=== PATIENT | male | born 1955 | race Caucasian/White ===

== ENCOUNTER → 2016-06-26 | Outpatient (CLI) | payer MEDICARE ==
[~2016-06-26] MED LIST: 'PARAFON FORTE500 M1 PO; ADVAIR 500/501 E1 INH; ALBUTEROL0.09 MG/A1 INH; AMIODARONE HCL200 MG PO; AMIODARONE HYD200 MG PO; AMOXICILLIN500 MG PO; ARICEPT10 MG PO; ARICEPT5 MG PO; ASPIR-LOX325 MG PO; ASPIRIN ADULT L81 M1 PO; ASPIRIN325 MG PO; AZITHROMYCIN250 MG PO; BREO ELLIPTA 11 EACH IH; CARDOXIN0.25 MG PO; CLOTRIMAZOLE TR10 MG PO; COMBIVENT1 ARO IH; COREG3.125 MG PO; CRESTOR20 MG PO; CRESTOR40 MG PO; DAYPRO600 M1 PO; DELTASONE20 M1 PO; DIGOXIN0.125 MG PO; DOXYCYCLINE100 M3 PO; DUONEB 3 MG/3 ML3 M1 INH; ELAVIL10 MG PO; Ecotrin325 MG PO; FEOSOL325 MG PO; FOLIC ACID1 MG PO; GABAPENTIN800 MG PO; GEMFIBROZIL600 MG PO; HYDROCODONE BIT1 T11 PO; IBU800 MG PO; IBUPROFEN 30 M800 MG PO; K-DUR20 MEQ PO; K-TAB20 MEQ PO; KEFLEX500 MG PO; LANTUS100 U/ML SC; LASIX 40MG40 MG/4 ML IM; LASIX40 MG PO; LASIX80 MG PO; LEVAQUIN750 M1 PO; LEVEMIR10 ML SC; LEVOFLOXACIN500 MG PO; LISINOPRIL5 MG PO; LOPID600 MG PO; MEDROL DOSEPAK4 MG PO; METFORMIN1000 MG PO; METFORMIN500 MG PO; METHADONE10 MG PO; MOTRIN800 MG PO; Metformin Hydr500 MG PO; NATURE'S BLEND F1 MG PO; NEURONTIN300 MG PO; NEXIUM40 MG PO; NICOTINE21 MG/24 H TD; NORCO 7.5-3251 EACH PO; NOVOLOG10 ML SC; NOVOLOG100 U/ML SC; OMEPRAZOLE20 MG PO; PLAVIX75 MG PO; PREDNISONE10 MG PO; PRILOSEC20 M1 PO; PRILOSEC20 MG PO; PROAIR HFA0.09 MG/AC IH; PROAIR HFA8.5 GM INH; PROAIR RESPICL90 MCG INH; REQUIP0.25 M1 PO; SPIRIVA 5 CAPS18 MCG INH; SPIRIVA18 MCG IH; SPIRIVA18 MCG PO; TESSALON PERLE100 MG PO; TUSSI-ORGANID3840 ML PO; VENTOLIN 02.5 MG/3 M INH; VENTOLIN0.09 MG/AC INH; VICO75300 PO; VICODIN 500 MG-1 TAB PO; VICODIN ES 7501 TA1 PO; VICODIN HP 6601 TAB PO; ZANTAC 150150 MG PO; ZESTRIL,PRINIVIL5 MG PO; ZITHROMAX TRI-500 M1 PO; ZITHROMAX Z PA250 MG PO; ZITHROMAX Z-PA250 MG PO; [UNRECOGNIZED DRUG - OTHER] IJ; [UNRECOGNIZED DRUG - OTHER] PO
== END | disposition home or self-care (01) ==
LOC: RAD 10:19
DX: M47.892 Other spondylosis, cervical region (principal); M25.511 Pain in right shoulder; M25.512 Pain in left shoulder; M54.2 Cervicalgia; R20.0 Anesthesia of skin; Z91.81 History of falling

== ENCOUNTER 2016-07-04 19:20 | Inpatient (IN) | payer MEDICARE ==
[~2016-07-04] VITALS: Ht 188 cm; Wt 132.4 kg
[~2016-07-04 19:20] MED LIST changes: -LEVAQUIN750 M1 PO
[2016-07-04 19:29] VITALS: BP 116/74
[2016-07-04] MEDS ORDERED: LEVEMIR10 ML SC (19:39)
[2016-07-04] MEDS ORDERED: IBU800 MG PO (19:40)
[2016-07-04 19:51] LABS: BASO # 0.1 10*3/uL (0.0-0.1); BASO % 0.8 % (0.0-1.0); EOS # 0.1 10*3/uL (0.0-0.4); EOS % 1.4 % (1.0-4.0); HEMATOCRIT 41.9 % (42.0-52.0); HEMOGLOBIN 14.7 g/dl (14.0-18.0); LYMPH # 1.5 10*3/uL (1.3-4.4); LYMPH % 14.3 % (27.0-41.0); MEAN CELL VOLUME 92.9 fl (80.0-94.0); MEAN CORPUSCULAR HGB 32.6 pg (27.0-31.0); MEAN CORPUSCULAR HGB CONC 35.1 g/dl (33.0-37.0); MEAN PLATELET VOLUME 10.7 fl (9.6-12.3); MONO # 0.8 10*3/uL (0.1-1.0); MONO % 7.5 % (3.0-9.0); NEUT # 7.8 10*3/uL (2.3-7.9); NEUT % 75.8 % (47.0-73.0); PLATELET COUNT AUTOMATED 176 10*3/uL (130-400); RED BLOOD COUNT 4.51 10*6/uL (4.50-5.90); RED CELL DISTRI WIDTH 13.2 % (0-14.5); WHITE BLOOD COUNT 10.2 10*3/uL (4.8-10.8)
[2016-07-04 20:02] VITALS: BP 102/64
[2016-07-04 20:10] LABS: BILIRUBIN, TOTAL 0.6 mg/dl (0.2-1.0); C-REACTIVE PROTEIN 2.71 MG/DL (0-0.3); POTASSIUM 2.9 mmol/L (3.5-5.1); TOTAL PROTEIN 7.7 gm/dL (6.4-8.2); TROPONIN I 0.017 ng/ml (<0.5)
[2016-07-04 20:27] LABS: ABG BASE EXCESS 0.9 mmol/L (-2.0-2.0); ABG CO2 CONTENT 24.5 mmol/L (23-27); ABG HCO3 23.5 mmol/l (22-26); ABG TEMPERATURE 97.4 F (98.0-99.0); ARTERIAL BLOOD GAS PH 7.478 (7.35-7.45); ARTERIAL BLOOD GAS PO2 58.4 mmHg (80-90)
[2016-07-04 20:44] LABS: BILIRUBIN NEGATIVE (NEGATIVE); BLOOD 2+ (NEGATIVE); CLARITY SL CLOUDY (CLEAR); COLOR YELLOW (YELLOW); GLUCOSE NEGATIVE (NEGATIVE); KETONE NEGATIVE (NEGATIVE); LEUKO ESTERASE NEGATIVE (NEGATIVE); NITRITE NEGATIVE (NEGATIVE); PROTEIN 1+ (NEGATIVE); UROBILINOGEN 0.2 E.U./dl (0.2-1.0)
[2016-07-04 20:45] VITALS: BP 94/54
[2016-07-04 20:56] LABS: BACTERIA 1+; RBC 16-20 rbc/hpf (0-2)
[2016-07-04 20:57] LABS: URINE REFLEX COMMENT YES (NO)
[2016-07-04 21:35] VITALS: BP 102/64
[2016-07-04 22:00] VITALS: BP 107/60
[2016-07-05] VITALS: BP 115/83
[2016-07-05 01:01] LABS: DIGOXIN 0.85 ng/ml (0.8-2.0); TROPONIN I 0.02 ng/ml (<0.5)
[2016-07-05 05:49] LABS: TROPONIN I 0.016 ng/ml (<0.5)
[2016-07-05 05:51] LABS: CKMB 6.3 ng/ml (0.5-3.6)
[2016-07-05 06:04] LABS: BASO # 0.1 10*3/uL (0.0-0.1); BASO % 0.8 % (0.0-1.0); EOS # 0.2 10*3/uL (0.0-0.4); HEMATOCRIT 41.4 % (42.0-52.0); HEMOGLOBIN 14.2 g/dl (14.0-18.0); LYMPH # 1.3 10*3/uL (1.3-4.4); LYMPH % 16.6 % (27.0-41.0); MEAN CELL VOLUME 94.5 fl (80.0-94.0); MEAN CORPUSCULAR HGB 32.4 pg (27.0-31.0); MEAN CORPUSCULAR HGB CONC 34.3 g/dl (33.0-37.0); MEAN PLATELET VOLUME 11.3 fl (9.6-12.3); MONO # 0.6 10*3/uL (0.1-1.0); MONO % 8.2 % (3.0-9.0); NEUT # 5.6 10*3/uL (2.3-7.9); PLATELET COUNT AUTOMATED 165 10*3/uL (130-400); RED BLOOD COUNT 4.38 10*6/uL (4.50-5.90); RED CELL DISTRI WIDTH 13.2 % (0-14.5); WHITE BLOOD COUNT 7.8 10*3/uL (4.8-10.8)
[2016-07-05 06:13] LABS: HEMOGLOBIN A1c 8.7 % (4.8-5.6)
[2016-07-05 06:16] LABS: ALBUMIN 3.6 gm/dl (3.1-4.5); BILIRUBIN, TOTAL 0.4 mg/dl (0.2-1.0); FREE T4 1.12 ng/dl (0.76-1.46); MAGNESIUM 2.1 mg/dL (1.5-2.1); PHOSPHOROUS 3.2 mg/dL (2.5-4.9); POTASSIUM 3.5 mmol/L (3.5-5.1); THYROID STIM HORMONE (HS) 1.19 uIU/ml (0.358-4.75); TOTAL PROTEIN 6.9 gm/dL (6.4-8.2)
[2016-07-05 06:19] LABS: INTERNATIONAL NORM RATIO 0.9 (2.0-3.5)
[2016-07-05 07:14] LABS: FOLIC ACID 12.63 ng/mL (>5.38); VITAMIN D, 25-HYDROXY 7.8 ng/mL (30-100)
[2016-07-05 08:00] VITALS: BP 132/90
[2016-07-05 12:00] VITALS: BP 136/79
[2016-07-05 12:33] LABS: TROPONIN I 0.017 ng/ml (<0.5)
[2016-07-05 12:38] LABS: CKMB 5.3 ng/ml (0.5-3.6)
[2016-07-05 16:00] VITALS: BP 132/63
[2016-07-05 20:00] VITALS: BP 143/71
[2016-07-06] VITALS: BP 135/60
[2016-07-06 06:23] LABS: BASO % 0.2 % (0.0-1.0); EOS % 0.1 % (1.0-4.0); HEMATOCRIT 37.4 % (42.0-52.0); HEMOGLOBIN 12.4 g/dl (14.0-18.0); LYMPH % 11.2 % (27.0-41.0); MEAN CELL VOLUME 94.9 fl (80.0-94.0); MEAN CORPUSCULAR HGB 31.5 pg (27.0-31.0); MEAN CORPUSCULAR HGB CONC 33.2 g/dl (33.0-37.0); MEAN PLATELET VOLUME 11.2 fl (9.6-12.3); MONO # 0.7 10*3/uL (0.1-1.0); MONO % 7.9 % (3.0-9.0); NEUT # 6.8 10*3/uL (2.3-7.9); NEUT % 80.2 % (47.0-73.0); PLATELET COUNT AUTOMATED 160 10*3/uL (130-400); RED BLOOD COUNT 3.94 10*6/uL (4.50-5.90); RED CELL DISTRI WIDTH 12.8 % (0-14.5); WHITE BLOOD COUNT 8.5 10*3/uL (4.8-10.8)
[2016-07-06 06:32] LABS: BUN 18 mg/dl (7-24); CARBON DIOXIDE 26 mmol/L (21-32); CHLORIDE 108 mmol/L (98-107); CKMB 4.8 ng/ml (0.5-3.6); EST GLOM FILT AFRICAN AMERICAN > 60 ml/min; GLUCOSE 261 mg/dL (65-99); POTASSIUM 3.8 mmol/L (3.5-5.1); SODIUM 144 mmol/L (136-145); TROPONIN I 0.019 ng/ml (<0.5)
[2016-07-06 08:00] VITALS: BP 124/58
[2016-07-06 12:00] VITALS: BP 140/67
[2016-07-06 16:00] VITALS: BP 125/67
[2016-07-06 20:00] VITALS: BP 141/81
[2016-07-07] VITALS: BP 142/71
[2016-07-07 08:00] VITALS: BP 120/68
[2016-07-07 12:00] VITALS: BP 142/72
[2016-07-07] MEDS ORDERED: PREDNISONE10 MG PO (15:57)
[2016-07-07] MEDS ORDERED: LEVAQUIN750 M1 PO (15:57)
[2016-07-07 16:00] VITALS: BP 123/59
== END 2016-07-07 16:47 | disposition home or self-care (01) | DRG 682 ==
LOC: ED 19:20 → EDHOLD 20:57 → 5E 20:57
PROVIDERS: Emergency Medicine Emergency Medical Services; Internal Medicine
DX: N17.0 Acute kidney failure with tubular necrosis (principal); J96.01 Acute respiratory failure with hypoxia; J44.1 Chronic obstructive pulmonary disease with (acute) exacerbation; I50.22 Chronic systolic (congestive) heart failure; D64.9 Anemia, unspecified; I48.0 Paroxysmal atrial fibrillation; F17.200 Nicotine dependence, unspecified, uncomplicated; I25.119 Atherosclerotic heart disease of native coronary artery with unspecified angina pectoris; E11.65 Type 2 diabetes mellitus with hyperglycemia; M15.9 Polyosteoarthritis, unspecified; K21.9 Gastro-esophageal reflux disease without esophagitis; Z71.6 Tobacco abuse counseling; Z79.82 Long term (current) use of aspirin; Z79.899 Other long term (current) drug therapy; Z79.4 Long term (current) use of insulin; Z88.5 Allergy status to narcotic agent; Z79.01 Long term (current) use of anticoagulants; Z88.8 Allergy status to other drugs, medicaments and biological substances; Z90.49 Acquired absence of other specified parts of digestive tract; Z95.1 Presence of aortocoronary bypass graft; Z98.890 Other specified postprocedural states; Z82.49 Family history of ischemic heart disease and other diseases of the circulatory system; Z83.3 Family history of diabetes mellitus

== ENCOUNTER → 2016-11-02 | Outpatient (CLI) | payer MEDICARE ==
[~2016-11-02] MED LIST changes: +LEVAQUIN750 M1 PO
== END ==
LOC: RAD 10:54
DX: M25.571 Pain in right ankle and joints of right foot (principal)

== ENCOUNTER 2017-01-12 11:56 | Inpatient (IN) | payer MEDICARE ==
[~2017-01-12] VITALS: Ht 187.9 cm; Wt 129.4 kg
--- NOTE | ~2017-01-12 | CON ---
[place], [place] REPORT OF CONSULTATION NAME: ARTI HAAS UNIT #: [id number] ROOM: 509 DOCTOR: RAYRAY LEWISROD BIRTHDATE: [birth year] DOS: 01/14/2017 The patient is very well known to me. REASON FOR CONSULTATION: Shortness of breath. HISTORY OF PRESENT ILLNESS: The patient with ischemic cardiomyopathy, previous bypass surgery. The patient came in with significant shortness of breath and COPD. The patient has chronic nicotine dependence and noncompliance. The patient continues to smoke. He had a brief episode of atrial fibrillation, but went back into sinus rhythm. I did an echocardiogram that showed an ejection fraction of 45-50%, which is significantly improved. Right now, he is in sinus rhythm. He is already on long-term amiodarone therapy and is already on aspirin and Plavix. Right now, he denies any chest discomfort, his main problem or shortness of breath. He does have severe COPD, being followed by Dr. Tejeda also. PAST MEDICAL HISTORY: Significant for emphysema, congestive heart failure diastolic, coronary artery disease, history of atrial fibrillation, diabetes mellitus, chronic moderate obesity, hypertension, nicotine dependence. PAST SURGICAL HISTORY: Bypass surgery, rotator cuff surgery, tracheostomy and decannulation in 2010. SOCIAL HISTORY: The patient continues to smoke about 1-2 packs per day. Occasional alcohol. FAMILY HISTORY: Positive for coronary artery disease and hypertension. DRUG ALLERGIES: BENTYL, METHADONE, FENTANYL AND MORPHINE. HOME MEDICATIONS: Include Plavix, digoxin, Coreg, aspirin, Lasix, Neurontin, amiodarone, metformin, lisinopril, Spiriva, Requip and Levemir. REVIEW OF SYSTEMS: CONSTITUTIONAL: Does complain of fatigue and tiredness. Denies any symptoms of fever or chills. HEENT: No visual disturbances or hearing problems. CARDIOVASCULAR: No chest discomfort. RESPIRATORY: Does have shortness of breath. GASTROINTESTINAL: No nausea, no vomiting. GENITOURINARY: No dysuria. NEUROLOGICAL: Stable. PHYSICAL EXAMINATION: GENERAL: The patient is alert, oriented x 3. HEENT: Unremarkable. LUNGS: Diminished air entry bilaterally. HEART: Sounds are regular. The patient is back into sinus rhythm. [place], [place] REPORT OF CONSULTATION NAME: ARTI HAAS UNIT #: [id number] ROOM: [facility] DOCTOR: RAYRAY LEWIS,ROD BIRTHDATE: [birth year] ABDOMEN: Soft, nontender. NEUROLOGICAL: Appears to be stable. LABORATORY DATA: Shows white count of 15.5, hemoglobin 13.9 and hematocrit 40.3, platelet count is normal. Chest x-ray shows no acute abnormalities. CT of the chest showed paraseptal and centrilobular emphysema and no evidence of significant congestive heart failure. IMPRESSION: The patient with severe chronic obstructive pulmonary disease, admitted with significant shortness of breath, nicotine dependence, centrilobular emphysema, ischemic cardiomyopathy, chronic moderate obesity, noncompliance, a brief episode of atrial fibrillation. RECOMMENDATIONS: The patient is hesitant to take Xarelto and hence I will continue the aspirin and Plavix. Continue the amiodarone. Continue the Lasix, but increase it to 80 in the morning and 40 at night. Continue the digoxin, Coreg. Continue the carvedilol as ordered and I will follow up as an outpatient. Thank you for this interesting consultation. ROD SEO MD CM:CONSTR:REPORT OF CONSULTATION 0260 01/14/17 [id number] interface
--- NOTE | ~2017-01-12 | CON ---
[place], [place] REPORT OF CONSULTATION NAME: ARTI HAAS [facility] #: [id number] UNIT #: [id number] ROOM: 509 DOCTOR: YOBANI COYNE MD BIRTHDATE: [birth year] DOS: 01/13/2017 REASON FOR CONSULTATION: Assessment of ongoing acute respiratory complaints with abnormal finding on CT scan of the chest. HISTORY OF PRESENT ILLNESS: This is a 61-year-old male, who has been known to me with past history of COPD and chronic nicotine dependence, presented to the Emergency Room. The patient has developed symptoms of increased shortness of breath associated coughing with some sputum expectoration in 24 hours. He came into the Emergency Room, where he had been assessed and being admitted to the hospital for further medical management. The patient denies any symptoms of pain in the chest. Denies symptoms of hemoptysis. The patient has been noted with significant severe shortness breath yesterday. He has a CT of the chest done as well that did not show evidence of pulmonary embolism. The physician also discussed with the patient significantly as well. He denies any symptoms of hemoptysis. REVIEW OF SYSTEMS: CONSTITUTIONAL: He does complain of fatigue and tiredness. Denies symptoms of fever or chills. EYES: Denies any burning, redness, or tenderness. EARS, NOSE, THROAT SYMPTOMS: No sore throat, hoarseness, otalgia, postnasal drainage or epistaxis. CARDIOVASCULAR: Denies anginal pain, edema or pain of the lower extremities. GASTROINTESTINAL: Denies dysphagia, nausea, vomiting, diarrhea, abdominal pain, hematemesis, or melena. GENITOURINARY: Denies dysuria, suprapubic pain, or hematuria. MUSCULOSKELETAL: Denies acute joint pain, redness, or tenderness. SKIN: Denies lesions or rashes. CENTRAL NERVOUS SYSTEM: No dizziness, headache, diplopia, syncopal episodes or seizures. Remaining systems were reviewed with the patient, they were noted all negative. PAST MEDICAL HISTORY: 1. Known longstanding centrilobular emphysema, which is paraseptal and centrilobular in variety. 2. Acute congestive heart failure with diastolic dysfunction. 3. Coronary artery disease. 4. Atrial fibrillation. 5. Type 2 diabetes mellitus. 6. Chronic moderate obesity. 7. Hypercholesterolemia. 8. Degenerative arthritis. 9. Anxiety, depression. 10. Nicotine dependence. PAST SURGICAL HISTORY: 1. Coronary artery bypass graft in 2005. 2. Right rotator cuff surgery. 3. Past tracheostomy and decannulation respiratory failure in 2010. [place], [place] REPORT OF CONSULTATION NAME: ARTI HAAS UNIT #: [id number] ROOM: [facility] DOCTOR: YOBANI COYNE MD BIRTHDATE: [birth year] SOCIAL HISTORY: The patient is , has 2 children. He has been noted with tobacco usage since of 19 years old, still smokes 1 pack of cigarettes per day actively until the hospitalization. Denies history of alcohol use, illicit drug use. 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 FAMILY HISTORY: The patient's father ; age unknown. Mother at age 4848 years old from unknown medical complications. HOME MEDICATIONS: Listed for this patient on admission in medication reconciliation are use of Breo Ellipta, ProAir HFA inhaler, DuoNeb, amiodarone, aspirin, Coreg, Plavix, digoxin, Lasix, Neurontin, Lopid, Vicodin-ES, ibuprofen, lisinopril, metformin, Prilosec, potassium chloride, ranitidine, Requip, Crestor, Spiriva, sliding scale insulin coverage and Levemir insulin. DRUG ALLERGIES: 1. BENTYL. 2. METHADONE. 3. FENTANYL. 4. MORPHINE SULPHATE. PHYSICAL EXAMINATION: GENERAL: This is a 61-year-old male, who has been currently noted to be awake and alert without any distress. Height of 6 feet 2 inches, weight of 284 pounds, BMI 36.5. Chronic obesity. VITAL SIGNS: Normal temperature, respiratory rate 24-30, heart rate of 70-124, blood pressure 122/72-114/55. Pulse oxygen saturation of the patient noted on room air at 88% on 4 liters nasal cannula 96% saturation. HEENT: NECK: Supple. Head was atraumatic. CARDIOVASCULAR: S1, S2 audible. LUNGS: Noted with diffuse reduction in breath sounds with expiratory wheezing. No crackles. ABDOMEN: Soft, nontender, bowel sounds present. EXTREMITIES: Show no edema, clubbing, cyanosis. Chronic moderate obesity. BRAZE OPERATOR: Cranial nerves 2-12 intact. No focal deficit. SKIN: No lesions or rashes. MUSCULOSKELETAL: No acute deformities. LABORATORY DATA: CBC on 01/12/2017, WBC count of 15.5, hemoglobin 13.9, hematocrit 40.3, platelet count was 153,000, normal. PT/PTT of patient on 01/12/2017 on admission normal. CMP of the patient 01/12/2017 admission glucose 187, BUN and creatinine normal, potassium 3.4, mildly decreased. Liver function tests were normal. Cardiac enzymes yesterday and this morning were noted as normal. The chest x-ray of patient on 01/12/2017, was essentially noted with no acute abnormalities. CT scan of the chest shows evidence of paraseptal and centrilobular emphysema combination in the lungs noted bilaterally with evidence of tree-in-bud scattered pulmonary nodules in the lungs bilaterally as well. There was no significant lymphadenopathy, mediastinal. CBC this morning, WBC count 11.6, hemoglobin 13.1, hematocrit 38.5, platelet count was normal. PT/PTT [place], [place] REPORT OF CONSULTATION NAME: ARTI HAAS UNIT #: [id number] ROOM: [facility] DOCTOR[facility] B[facility] [birth year] repeated this morning normal. BMP this morning, glucose 129, BUN and creatinine were normal. Arterial blood gas that I ordered for this patient yesterday on 2 liters, pH of 7.34, pCO2 of 43, pO2 71.4. IMPRESSION: 1. The patient is currently admitted to the hospital, history of noncompliance with continued nicotine dependence, developed acute hypoxic respiratory failure with acute exacerbation of chronic obstructive pulmonary disease and acute bronchitis. 2. Bilateral pulmonary nodular opacity was noted with tree-in-bud appearance consistent with acute pulmonary infection. The patient technically could be considered as acute pneumonia. The etiology usually is considered as a gram-positive organisms and atypical etiology. 3. History of chronic moderate obesity. 4. History of multiple medical problems listed in my history as well. PLAN OF MANAGEMENT: The patient would be continued on bronchodilators as ordered every 4 hours. His home medication has been reviewed and resumed. Solu-Medrol currently noted suffice with the dose 60 mg q.8 hours with the reduction to be done with the progression of the illness. Continue antibiotic to cover the gram-positive, gram-negative organisms. The patient was ordered BiPAP for the patient's medical and respiratory distress, he refused to do that, and stated that he could not breathe with that. Ordered the sputum for Gram stain and culture. Monitor patient as necessary. Usual care. Ordered supportive plan and management and therapy. Nicotine replacement patches. Oxygen supplementation, continue to maintain a saturation of 92% or greater. Tobacco cessation has been addressed with the patient as well. Thanks for allowing me to participate in the care of this patient. YOBANI GARCIA MD CM:CONSTR:REPORT OF CONSULTATION 1059 01/13/17 1315 interface
--- NOTE | ~2017-01-12 | PR ---
[place], [place] PROGRESS NOTE NAME: ARTI HAAS UNIT #: [id number] ROOM: 509 DOCTOR: YOBANI COYNE MD BIRTHDATE: [birth year] DOS: 01/14/2017 SUBJECTIVE: He has been noted comfortable at this time without any distress. His shortness of breath has been noted decreased from yesterday. The patient denies symptoms of chest pain. Coughing has been noted [id number]. The patient with sputum expectoration at this time. Denies symptoms of chest pain or abdominal pain. OBJECTIVE: VITAL SIGNS: Normal temperature, respiratory rate 20, pulse 69, blood pressure is 127/67. Pulse ox saturation on 2 liters nasal cannula 96% saturation recorded. HEENT: Examination shows no acute change. NECK: Supple. CARDIOVASCULAR: S1, S2 audible. LUNGS: Moderate decreased breath sounds, expiratory wheezing, no crackles. ABDOMEN: Soft, nontender. LABORATORY DATA: The blood culture for the patient from the to showed no bacterial growth, final culture results were pending. Sputum Gram stain for this patient on 01/13/2017, many white blood cells, few epithelial cells, few gram-positive cocci in pairs and clusters with normal rob. ____ negative culture. Final culture results were pending. IMPRESSION: 1. The patient with acute exacerbation of chronic obstructive pulmonary disease with acute tracheobronchitis. 2. History of chronic nicotine dependence as well. 3. Acute hypoxic respiratory failure as well secondary to acute exacerbation of chronic obstructive pulmonary disease. 4. Bilateral pulmonary opacities. The patient with diagnosis of acute pneumonia. PLAN OF TREATMENT: Reduce the dose of the Solu-Medrol for this patient at this time to Solu-Medrol 40 mg b.i.d. Continue current antibiotics, bronchodilators and nicotine replacement patches, all other previous medications. Monitor culture results of the sputum. [place], [place] PROGRESS NOTE NAME: ARTI HAAS UNIT #: [id number] ROOM: 509 DOCTOR: YOABNI COYNE MD BIRTHDATE: [birth year] YOBANI AZIZ, MD CM:PNTRANS [id number] YOBANI LEE MD 01/14/17 1214 interface
[2017-01-12 12:03] VITALS: BP 102/55
[2017-01-12 12:14] VITALS: BP 104/60
[2017-01-12 12:15] LABS: BASO # 0.1 10*3/uL (0.0-0.1); BASO % 0.4 % (0.0-1.0); EOS % 0.1 % (1.0-4.0); HEMATOCRIT 40.3 % (42.0-52.0); HEMOGLOBIN 13.9 g/dl (14.0-18.0); IG # 0.1 10*3/uL (0.0-0.1); LYMPH # 1.1 10*3/uL (1.3-4.4); LYMPH % 6.9 % (27.0-41.0); MEAN CELL VOLUME 91.6 fl (80.0-94.0); MEAN CORPUSCULAR HGB 31.6 pg (27.0-31.0); MEAN CORPUSCULAR HGB CONC 34.5 g/dl (33.0-37.0); MEAN PLATELET VOLUME 11.1 fl (9.6-12.3); MONO % 6.5 % (3.0-9.0); NEUT # 13.3 10*3/uL (2.3-7.9); NEUT % 85.7 % (47.0-73.0); PLATELET COUNT AUTOMATED 153 10*3/uL (130-400); WHITE BLOOD COUNT 15.5 10*3/uL (4.8-10.8)
[2017-01-12 12:23] LABS: PROTHROMBIN TIME 10.6 SECONDS (9.0-12.4)
[2017-01-12 12:30] LABS: ALBUMIN 3.8 gm/dl (3.1-4.5); ALKALINE PHOSPHATASE 83 U/L (45-117); BILIRUBIN, TOTAL 0.8 mg/dl (0.2-1.0); BUN 15 mg/dl (7-24); C-REACTIVE PROTEIN 8.55 MG/DL (0-0.3); CARBON DIOXIDE 24 mmol/L (21-32); CHLORIDE 102 mmol/L (98-107); CKMB 1.5 ng/ml (0.5-3.6); CPK 443 U/L (39-308); EST GLOM FILT AFRICAN AMERICAN > 60 ml/min; GLUCOSE 187 mg/dL (65-99); MAGNESIUM 1.9 mg/dL (1.5-2.1); POTASSIUM 3.4 mmol/L (3.5-5.1); SGOT/AST 16 IU/L (3-35); SGPT/ALT 23 U/L (12-78); SODIUM 136 mmol/L (136-145); TOTAL PROTEIN 7.4 gm/dL (6.4-8.2)
[2017-01-12 12:31] LABS: TROPONIN I < 0.015 ng/ml (<0.045)
[2017-01-12 12:41] LABS: DIGOXIN 0.59 ng/ml (0.8-2.0)
[2017-01-12 12:54] VITALS: BP 102/56
[2017-01-12 14:05] VITALS: BP 114/71
[2017-01-12 16:00] VITALS: BP 114/55
[2017-01-12 19:28] LABS: ABG BASE EXCESS -2.2 mmol/L (-2.0-2.0); ABG CO2 CONTENT 24.5 mmol/L (23-27); ABG HCO3 23.1 mmol/l (22-26); ABG TEMPERATURE 98.3 F (98.0-99.0); ARTERIAL BLOOD GAS PH 7.345 (7.35-7.45); ARTERIAL BLOOD GAS PO2 71.4 mmHg (80-90)
[2017-01-13] VITALS: BP 146/68
[2017-01-13 07:04] LABS: HEMATOCRIT 38.5 % (42.0-52.0); HEMOGLOBIN 13.1 g/dl (14.0-18.0); MEAN CELL VOLUME 93.9 fl (80.0-94.0); MEAN PLATELET VOLUME 11.7 fl (9.6-12.3); PLATELET COUNT AUTOMATED 152 10*3/uL (130-400); RED CELL DISTRI WIDTH 12.8 % (0-14.5); WHITE BLOOD COUNT 11.6 10*3/uL (4.8-10.8)
[2017-01-13 07:25] LABS: PROTHROMBIN TIME 10.7 SECONDS (9.0-12.4)
[2017-01-13 07:26] LABS: BUN 21 mg/dl (7-24); CARBON DIOXIDE 26 mmol/L (21-32); CHLORIDE 108 mmol/L (98-107); CHOLESTEROL 140 mg/dL (<200); EST GLOM FILT AFRICAN AMERICAN > 60 ml/min; GLUCOSE 229 mg/dL (65-99); SODIUM 140 mmol/L (136-145); TRIGLYCERIDES 130 mg/dl (<150); VLDL CHOLESTEROL 26 mg/dL (6-40)
[2017-01-13 07:27] LABS: LYMPHOCYTE # 0.5 10*3/uL (1.3-4.4); MONOCYTE # 0.1 10*3/uL (0.1-1.0); NEUTROPHILS 95 % (47-73); PLATELET SUFFICIENCY NORMAL (NORMAL); TOTAL CELLS COUNTED 100 #CELLS
[2017-01-13 07:35] LABS: CKMB 3.8 ng/ml (0.5-3.6); HDL CHOLESTEROL 37 mg/dl (40-60); LDL CHOLESTEROL 77 mg/dL (9-159); THYROID STIM HORMONE (HS) 0.227 uIU/ml (0.358-4.75); VITAMIN D, 25-HYDROXY 18.2 ng/mL (30-100)
[2017-01-13 07:36] LABS: CPK 326 U/L (39-308); FOLIC ACID 6.15 ng/mL (>5.38)
[2017-01-13 08:00] VITALS: BP 122/72
[2017-01-13 12:00] VITALS: BP 118/63
[2017-01-13 16:00] VITALS: BP 120/61
[2017-01-13 20:00] VITALS: BP 119/51
[2017-01-14] VITALS: BP 133/61
[2017-01-14 08:00] VITALS: BP 127/67
[2017-01-14 12:00] VITALS: BP 143/86
[2017-01-14] MEDS ORDERED: XARE20MG PO (13:30)
[2017-01-14] MEDS ORDERED: ASPIRIN LITE C325 MG PO (15:17)
[2017-01-14] MEDS ORDERED: PLAVIX75 M1 PO (15:17)
== END 2017-01-14 15:01 | disposition home or self-care (01) | DRG 871 ==
LOC: ED 11:56 → 5E 14:50 → EDHOLD 14:50 → 5E 15:03
PROVIDERS: Emergency Medicine; Internal Medicine; Internal Medicine Critical Care Medicine
DX: A41.9 Sepsis, unspecified organism (principal); J18.9 Pneumonia, unspecified organism; J96.01 Acute respiratory failure with hypoxia; I11.0 Hypertensive heart disease with heart failure; M62.82 Rhabdomyolysis; I50.22 Chronic systolic (congestive) heart failure; J44.0 Chronic obstructive pulmonary disease with (acute) lower respiratory infection; J44.1 Chronic obstructive pulmonary disease with (acute) exacerbation; R65.20 Severe sepsis without septic shock; E87.6 Hypokalemia; I48.0 Paroxysmal atrial fibrillation; K21.9 Gastro-esophageal reflux disease without esophagitis; F17.210 Nicotine dependence, cigarettes, uncomplicated; E11.65 Type 2 diabetes mellitus with hyperglycemia; I25.5 Ischemic cardiomyopathy; I25.10 Atherosclerotic heart disease of native coronary artery without angina pectoris; J20.9 Acute bronchitis, unspecified; E66.8 Other obesity; R91.1 Solitary pulmonary nodule; F41.9 Anxiety disorder, unspecified; F32.9 Major depressive disorder, single episode, unspecified; E78.5 Hyperlipidemia, unspecified; Z91.19 Patient's noncompliance with other medical treatment and regimen; Z88.1 Allergy status to other antibiotic agents; Z88.5 Allergy status to narcotic agent; Z88.8 Allergy status to other drugs, medicaments and biological substances; Z90.49 Acquired absence of other specified parts of digestive tract; Z82.49 Family history of ischemic heart disease and other diseases of the circulatory system; Z79.51 Long term (current) use of inhaled steroids; Z79.1 Long term (current) use of non-steroidal anti-inflammatories (NSAID); Z79.4 Long term (current) use of insulin; Z79.899 Other long term (current) drug therapy; Z71.6 Tobacco abuse counseling; Z95.1 Presence of aortocoronary bypass graft; Z79.82 Long term (current) use of aspirin; M19.90 Unspecified osteoarthritis, unspecified site

== ENCOUNTER 2017-03-23 07:28 | Inpatient (IN) | payer MEDICARE ==
[2017-03-23] VITALS (7 sets, daily range): BP systolic 120–171; BP diastolic 67–86
[~2017-03-23] VITALS: Ht 188 cm; Wt 133.6 kg
--- NOTE | ~2017-03-23 | CON ---
[place], [place] REPORT OF CONSULTATION NAME: ARTI HAAS [facility] #: [id number] UNIT #: [id number] ROOM: 415 DOCTOR: YOBANI COYNE MD BIRTHDATE: [birth year] DOS: 03/23/2017 CONSULTATION REQUESTED BY: Hospitalist services. REASON FOR CONSULTATION: Assessment of acute exacerbation of COPD. HISTORY OF PRESENT ILLNESS: A 62-year-old white male, very well-known with history of centrilobular emphysema and other problem, presented to the hospital. The patient has been noted acutely ill for the past few days, about a week or less. He started with initial nonproductive cough, which has been noted progressive with increased chest congestion, inability to expectorate sputum with wheezing and increased shortness of breath with [id number] exertional activities. Shortness of breath has been noted progressively worse later noted at rest. The patient decided to come to the hospital for further medical management. He denies any symptoms of chest pain. The patient denies symptoms of hemoptysis. He has been noted partial improvement in symptoms since hospitalization of yesterday and in the last few hours since he had been admitted early this morning. REVIEW OF SYSTEMS: CONSTITUTIONAL: Fatigue and tiredness noted without any symptoms of fever or chills. EYES: Denies any burning, redness, or tenderness. EARS, NOSE, THROAT: No sore throat, hoarseness, otalgia, postnasal drainage. CARDIOVASCULAR: Denies anginal pain, edema, pain of the lower extremities. GASTROINTESTINAL: Denies dysphagia, nausea, vomiting, diarrhea, abdominal pain, hematemesis, melena. Chronic obesity remains unchanged. Denies abnormal weight loss, dysphagia. GENITOURINARY: Denies dysuria, suprapubic pain, hematuria or flank pain. MUSCULOSKELETAL: History of chronic pain. Denies any acute joint pain, redness, or tenderness. SKIN: Denies lesions or rashes. CENTRAL NERVOUS SYSTEM: Denies dizziness, headache, diplopia, syncopal episode, seizures or tingling sensation of the extremities. Remaining systems were reviewed and they were noted all negative. PAST MEDICAL HISTORY: 1. The patient was noted with history of past hospitalization in 12/2016 for acute exacerbation of chronic obstructive pulmonary disease, acute tracheobronchitis. 2. Past history of COPD with centrilobular and paraseptal emphysema. 3. Congestive heart failure for this patient, diastolic dysfunction. 4. Coronary artery disease. 5. Atrial fibrillation. 6. Diabetes mellitus. 7. Moderate obesity. 8. Hypercholesterolemia. 9. Degenerative arthritis. 10. Anxiety, depression. [place], [place] REPORT OF CONSULTATION [id number] UNIT #: [id number] ROOM: 415 DOCTOR: YOBANI COYNE MD BIRTHDATE: [birth year] 11. Chronic nicotine dependence. PAST SURGICAL HISTORY: 1. Coronary artery bypass grafting 2005. 2. Right rotator cuff surgery. 3. Past tracheostomy and decannulation for the management of prolonged respiratory failure in 2010. SOCIAL HISTORY: The patient is and lives at home. Denies any history of alcohol use or any illicit drug use. He has been noted with history of chronic tobacco use, started at his younger age. The patient is currently smoking a pack or more cigarettes per day at this time. Smoking started since age of [age] years old. 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 FAMILY HISTORY: Father , history unknown. Mother at age 4040 years old from unknown medical complications. HOME MEDICATIONS: Noted as use of Breo Ellipta, Spiriva, albuterol sulfate with the nebulizer, Lasix, metformin, Plavix, aspirin, lisinopril, amiodarone, Lipitor, Coreg, gemfibrozil, digoxin, Neurontin, omeprazole, and others. DRUG ALLERGIES: NOTED SEVERAL ALLERGIES THAT INCLUDE MORPHINE, FENTANYL, METHADONE AND PANTOL. PHYSICAL EXAMINATION: GENERAL: A 62-year-old male who has been currently sitting on his bed without any acute distress. Height of 6 feet 2 inches, weight of 294 pounds and BMI 37.7. VITAL SIGNS: Normal temperature, respiratory rate 36 on admission, currently 18, heart rate 119-117 with sinus tachycardia, blood pressure 151/86-120/79. Pulse oxygen saturation on 2 L nasal cannula 95% saturation. HEENT: Moderate obesity. Head was atraumatic. Eyes nonicterus. NECK: Supple. LUNGS: Decreased breath sounds were noted in the lungs bilaterally. Previous tracheostomy scar in the base of the neck was also noted. Wheezing were noted moderately bilaterally without any crackles. Breaths are noted generalized diminished. ABDOMEN: Soft with moderate obesity, bowel sounds present, nontender. GENITOURINARY: The patient's cranial nerves 2-12 intact. No focal deficits. MUSCULOSKELETAL: No deformities. SKIN: No lesions or rashes. LABORATORY DATA: CBC of the patient this morning on admission was hemoglobin 13.2, hematocrit 38.7, WBC count and platelet count normal, lactic acid 1.7. PT/PTT on was 03/23/2017 was normal. CMP of 10, glucose 350, BUN and creatinine was normal. Remaining CMP normal. Chest x-ray, 1 view, the patient shows hyperinflative changes of COPD without any acute pulmonary infiltration, which was personally reviewed at bedside, blood glucose noted at 377. [place], [place] REPORT OF CONSULTATION NAME: ARTI HAAS UNIT #: [id number] ROOM: 415 DOCTOR: YOBANI COYNE MD BIRTHDATE: [birth year] IMPRESSION: 1. Recurrent acute exacerbation of chronic obstructive pulmonary disease with acute bronchitis was noted at this time. Possible bacteria/viral infection to be considered. 2. Chronic nicotine dependence. 3. History of chronic obesity as well. 4. The patient with other medical problems noted in the past. 5. History of type 2 diabetes mellitus, uncontrolled with use of the corticosteroids. PLAN OF TREATMENT: The patient has been ordered blood cultures as well as respiratory viral panel to assess the viral etiologies. Continuation of bronchodilators and current dose of corticosteroids and antibiotics. Monitor respiratory status closely. Additional treatment changes need to be done for this patient based on the progression of the illness. Other supportive therapy, plan of management and care. Other treatments, the patient has noted in progress to be done. Supportive care, other therapy, plan of management with addition of changes in the treatment needs to be made for this patient based on progression of the illness. YOBANI GARCIA MD CM:CONSTR:REPORT OF CONSULTATION 1302 03/24/17 0530 interface
--- NOTE | ~2017-03-23 | PR ---
[place], [place] PROGRESS NOTE NAME: ARTI HAAS [facility] #: [id number] UNIT #: [id number] ROOM: 415 DOCTOR: RADHA LEE MD,YOBANI BIRTHDATE: [birth year] DOS: 03/24/2017 SUBJECTIVE: The patient has been noted comfortable at this time without any distress, reduction in symptoms of shortness of breath, cough and wheezing has been noted in the last 24 hours. OBJECTIVE: VITAL SIGNS: Normal temperature, respiratory rate 18, heart rate 73, blood pressure 138/74, pulse oxygen saturation of the patient on 2 liters nasal cannula 96% saturation. HEENT: Chronic obesity. NECK: Supple. CARDIOVASCULAR: S1, S2 audible. LUNGS: Moderate decreased breath sounds, mild to moderate expiratory wheezing, no crackles. ABDOMEN: Soft, nontender. LABORATORY DATA: CBC: WBC count 11.6, hemoglobin 13.5, hematocrit was 40% with normal platelet count. CMP of the patient this morning, normal BUN and creatinine. Glucose was 219, which was mildly elevated. IMPRESSION: The patient with progressive reduction and resolution of acute exacerbation of chronic obstructive pulmonary disease, acute tracheobronchitis and history of chronic nicotine dependence, currently using the nicotine replacement patches as well. PLAN OF MANAGEMENT: Reduce the dose of Solu-Medrol for the patient today with continued use of the bronchodilators. Oxygen supplementation if saturation noted less than 92%. Solu-Medrol dose will be decreased to 60 mg daily today, possible consideration for the patient home, discharge in the morning might be considered depending further improvement and resolution of the current acute symptoms. YOBANI GARCIA MD CM:ROSIBEL [id number] YOBANI LEE MD 03/25/17 0232 interface
--- NOTE | ~2017-03-23 | PR ---
[place], [place] PROGRESS NOTE NAME: ARTI HAAS [facility] #: [id number] UNIT #: [id number] ROOM: 415 DOCTOR: RADHA LEE MD,YOBANI BIRTHDATE: [birth year] DOS: 03/25/2017 PULMONARY PROGRESS NOTE SUBJECTIVE: He continued to show improvement in the respiratory symptoms. He was seen and examined on 03/25/2017, sitting on the bed. Coughing, wheezing and shortness of breath continued to resolve progressively. There were no symptoms of chest pain. OBJECTIVE: VITAL SIGNS: For the patient which were recorded shows a normal temperature, respirations 18, heart rate 76, blood pressure 180/74, pulse ox saturation on room air 97% saturation. HEENT: Chronic obesity. NECK: Supple. CARDIOVASCULAR: S1, S2 audible. LUNGS: Moderate decreased breath sounds in the lungs were noted bilaterally. ABDOMEN: Soft, nontender. LABORATORY DATA: The patient's chest x-ray this morning changes of COPD without acute pulmonary infiltration. IMPRESSION: The patient with progressive resolution of acute exacerbation of chronic obstructive pulmonary disease, acute tracheobronchitis, history of chronic nicotine dependence. PLAN OF TREATMENT: No changes from the pulmonary standpoint. The patient noted medically stable, could be discharged home on tapering prednisone and oral antibiotics. Outpatient followup in the office as previously scheduled will be kept by the patient. YOBANI GARCIA MD CM:PNTRANS [id number] YOBANI LEE MD 03/25/17 1623 interface
--- NOTE | ~2017-03-23 | CON ---
[place], [place] REPORT OF CONSULTATION NAME: ARTI HAAS [facility] #: [id number] UNIT #: [id number] ROOM: 415 DOCTOR: JOSE F SEO MDHISH BIRTHDATE: [birth year] DOS: HISTORY OF PRESENT ILLNESS: The patient is very well known to me with a known history of coronary artery disease and left ventricular dysfunction with significant shortness of breath. This is a 62-year-old gentleman, noncompliant with severe COPD, left ventricular dysfunction, and bypass surgery. The patient came in with severe shortness of breath. The patient's BNP is significantly elevated. The patient is noncompliant with diet, continues to smoke. No obvious chest discomfort. The patient was using his inhalers without much relief. The patient denies any home oxygen. No obvious chest pain, no nausea, no vomiting, no diaphoresis. PAST MEDICAL HISTORY: History of coronary artery disease, hypertension, hyperlipidemia, paroxysmal atrial fibrillation, left ventricular dysfunction. PAST SURGICAL HISTORY: He has had a quadruple bypass surgery, rotator cuff surgery, tracheostomy, and cholecystectomy history. FAMILY HISTORY: Positive for coronary artery disease. ALLERGIES: FENTANYL, METHADONE, MORPHINE. MEDICATIONS: Clopidogrel, amiodarone, digoxin, insulin, metformin, Rosuvastatin, and ranitidine. REVIEW OF SYSTEMS: CONSTITUTIONAL: No fever, no chills. HEENT: No visual disturbances or hearing problems. CARDIOVASCULAR: As per HPI. Does have lower extremity edema. RESPIRATORY: The patient does have significant shortness of breath as per HPI. ABDOMEN: No nausea, no vomiting. GENITOURINARY: No dysuria. NEUROLOGIC: No syncope. PHYSICAL EXAMINATION: VITAL SIGNS: Blood pressure is 150/80. HEENT: Elevated JVD. LUNGS: Diminished air entry bilaterally. HEART: Heart sounds are regular. ABDOMEN: Obese, soft, nontender. EXTREMITIES: About 2+ edema. LABORATORY DATA: Electrolytes are normal. Creatinine is normal. BNP is significantly elevated. Troponin is 0.033, creatinine is 1.03, hemoglobin 13.2, hematocrit within normal limits. Chest x-ray showed no acute pulmonary disease, but the BNP is significantly elevated. EKG sinus rhythm with nonspecific ST-T changes. IMPRESSION: The patient with COPD exacerbation and probable systolic congestive heart failure, pneumonitis, tobacco abuse, coronary artery disease, diabetes, [place], [place] REPORT OF CONSULTATION NAME: ARTI HAAS UNIT #: [id number] ROOM: 415 DOCTOR: ROD SEO MD BIRTHDATE: [birth year] noncompliance. RECOMMENDATIONS: Continue the present medications. Echo revealed ejection fraction is about 35%, which is somewhat diminished compared to before. Continue IV diuretics, strict I's and O's, 1500 mL fluid restriction. Continue the beta blockers, ERUM inhibitors, lipid lowering agents and ____ agents. Once the CHF status is completely cleared and the lungs status is improved, we will do a stress test as an outpatient sometime next week. ROD SEO MD CM:CONSTR:REPORT OF CONSULTATION 0615 03/24/17 2134 interface
[~2017-03-23 07:28] MED LIST changes: +ASPIRIN LITE C325 MG PO; +PLAVIX75 M1 PO; +XARE20MG PO
[2017-03-23 08:07] LABS: BASO # 0.1 10*3/uL (0.0-0.1); BASO % 0.6 % (0.0-1.0); EOS # 0.1 10*3/uL (0.0-0.4); EOS % 0.6 % (1.0-4.0); HEMATOCRIT 38.7 % (42.0-52.0); HEMOGLOBIN 13.2 g/dl (14.0-18.0); LYMPH # 0.9 10*3/uL (1.3-4.4); LYMPH % 12.1 % (27.0-41.0); MEAN CELL VOLUME 92.4 fl (80.0-94.0); MEAN CORPUSCULAR HGB 31.5 pg (27.0-31.0); MEAN CORPUSCULAR HGB CONC 34.1 g/dl (33.0-37.0); MONO # 0.4 10*3/uL (0.1-1.0); MONO % 4.8 % (3.0-9.0); NEUT # 6.3 10*3/uL (2.3-7.9); NEUT % 81.6 % (47.0-73.0); PLATELET COUNT AUTOMATED 133 10*3/uL (130-400); RED BLOOD COUNT 4.19 10*6/uL (4.50-5.90); RED CELL DISTRI WIDTH 12.9 % (0-14.5); WHITE BLOOD COUNT 7.7 10*3/uL (4.8-10.8)
[2017-03-23 08:15] LABS: ACT PARTIAL THROMBO TIME 21.8 SECONDS (20.8-31.5); INTERNATIONAL NORM RATIO 0.9 (2.0-3.5)
--- NOTE | 2017-03-23 08:20 | NUR ---
PT STATES BREATHING TREATMENT HELPED "A LITTLE." RESPIRATIONS STILL 22-28. O2 SATS AT 92-93%
[2017-03-23 08:25] LABS: ALBUMIN 3.7 gm/dl (3.1-4.5); ALKALINE PHOSPHATASE 82 U/L (45-117); BUN 14 mg/dl (7-24); CHLORIDE 107 mmol/L (98-107); CREATININE 1.03 mg/dL (0.70-1.30); LIPASE 92 U/L (73-393); MAGNESIUM 1.9 mg/dL (1.5-2.1); POTASSIUM 3.6 mmol/L (3.5-5.1); SGOT/AST 11 IU/L (3-35); SGPT/ALT 21 U/L (12-78); SODIUM 141 mmol/L (136-145); TROPONIN I 0.033 ng/ml (<0.045)
--- NOTE | 2017-03-23 08:35 | NUR ---
SHORT EXPIRATORY WHEEZES HEARD IN BILATERAL LOWER LOBES, AFTER BREATHING TREATMENT. NOT LOUD THEY WERE BEFORE BREATHING TREATMENT.
[2017-03-23 08:37] LABS: DIGOXIN 0.36 ng/ml (0.8-2.0)
--- NOTE | 2017-03-23 09:11 | NUR ---
A 62, admitted to , under the services of MALIKA Edward DO with a diagnosis of PNUMONITIS,COPD EXACERBATION AND SEPSIS. Chief complaint is SOB. Patient arrived via wheel chair from ER. Monitor applied. Initial assessment completed. Vital signs taken and recorded. MALIKA EDWARD DO notified of admission to the unit. Orders received. See assessment for past medical history, medications and allergies. Patient and/or family oriented to unit. [facility] visitation policy reviewed. Clothing/patient valuable form completed. MICHAEL RIOS
--- NOTE | 2017-03-23 09:48 | NUR ---
PHYSICIAN WAS NOTIFIED OF DR. RADHA THOMPSON. RESPONSE OF NOTIFICATION WAS OK I WILL SEE HIM. MICHAEL RIOS
[2017-03-23] MEDS ORDERED: IBU800 MG PO (09:55)
[2017-03-23] MEDS ORDERED: METFORMIN500 MG PO (09:56)
--- NOTE | 2017-03-23 10:00 | NUR ---
[facility] FAXED MED LIST AND MED REC UPDATED PER LIST AND TALKING WITH PT AND .
--- NOTE | 2017-03-23 10:47 | NUR ---
ANSWERING SERVICE WAS NOTIFIED OF DR. NOVA THOMPSON. RESPONSE OF NOTIFICATION WAS OK I PUT A PAGE OUT FOR HIM. MICHAEL RIOS
--- NOTE | 2017-03-23 11:10 | NUR ---
Per Dr. Roldan cummings echo. Complete echo was done December 2016.
--- NOTE | 2017-03-23 11:11 | NUR ---
SPOKE TO DR SEO REGARDING CONSULT. HE STATED HE WILL SEE HER AND TO ORDER AN ECHO. ECHO HAS ALREADY BEEN ORDERED.
--- NOTE | 2017-03-23 11:19 | NUR ---
ECHO TO BE COMPLETED CURRENTLY ORDERED. DOS 03/23/17.
--- NOTE | 2017-03-23 11:50 | NUR ---
ATTEMPT MADE TO CALL ALMS TRIED 2 NUMBERS NO ANSWER WILL TRY AGAIN LATER.
--- NOTE | 2017-03-23 19:59 | NUR ---
PRN NORCO GIVEN FOR PT COMPLAINTS OF LEFT LOWER BACK PAIN RATING IT AN 8/10. CALL LIGHT WITHIN REACH, WILL MONITOR
--- NOTE | 2017-03-23 21:00 | NUR ---
PRN MEDICATION APPEARS EFFECTIVE, PT SLEEPING
[2017-03-24] VITALS: BP 105/84
[2017-03-24 06:18] LABS: HEMOGLOBIN 13.7 g/dl (14.0-18.0); MEAN CELL VOLUME 91.3 fl (80.0-94.0); MEAN CORPUSCULAR HGB 31.3 pg (27.0-31.0); MEAN CORPUSCULAR HGB CONC 34.3 g/dl (33.0-37.0); MEAN PLATELET VOLUME 11.5 fl (9.6-12.3); PLATELET COUNT AUTOMATED 155 10*3/uL (130-400); RED BLOOD COUNT 4.38 10*6/uL (4.50-5.90); RED CELL DISTRI WIDTH 12.6 % (0-14.5); WHITE BLOOD COUNT 11.6 10*3/uL (4.8-10.8)
[2017-03-24 06:39] LABS: ALBUMIN 3.5 gm/dl (3.1-4.5); ALKALINE PHOSPHATASE 76 U/L (45-117); BUN 21 mg/dl (7-24); CHLORIDE 107 mmol/L (98-107); CHOLESTEROL 164 mg/dL (<200); CREATININE 0.87 mg/dL (0.70-1.30); FREE T4 1.02 ng/dl (0.76-1.46); HDL CHOLESTEROL 31 mg/dl (40-60); LDL CHOLESTEROL 115 mg/dL (9-159); PHOSPHOROUS 3.1 mg/dL (2.5-4.9); POTASSIUM 3.9 mmol/L (3.5-5.1); SGOT/AST 12 IU/L (3-35); SGPT/ALT 21 U/L (12-78); SODIUM 140 mmol/L (136-145); TOTAL PROTEIN 6.8 gm/dL (6.4-8.2); TRIGLYCERIDES 92 mg/dl (<150); VLDL CHOLESTEROL 18 mg/dL (6-40)
[2017-03-24 07:05] LABS: TOTAL CELLS COUNTED 100 #CELLS
[2017-03-24 07:06] LABS: PLATELET SUFFICIENCY NORMAL (NORMAL)
[2017-03-24 08:00] VITALS: BP 138/74
[2017-03-24 08:37] LABS: VITAMIN D, 25-HYDROXY 32.3 ng/mL (30-100)
--- NOTE | 2017-03-24 09:00 | NUR ---
[place] Treatment Supervisor in to talk to patient. Patient states lives at home with ex . There are few steps in the home. Physician: cory harper [facility] Home health services: none Patient's level of ADLs: INDEPENDENT Patient has working utilities: all working DME: walker, cane, nebulizer Follow-up physician's appointment after d/c: will be made by hospitalist nurse director upon discharge Does patient want to access PORTAL?: no Discharge plan discussed with patient, patient lives at home with ex , states he has a cane and walker to use if needed, he also has a neublizer, patient states he drives, he stated he will be going back home and denies any home needs. KRAIG WILKS
--- NOTE | 2017-03-24 09:05 | NUR ---
DR. SEO'S OFFICE CALLED AND MESSAGE LEFT ON ANSWERING MACHINE CONCERNING NEED TO HAVE STRESS TEST SET UP NEXT TUESDAY OUTPT. INFORMATION FAXED.
[2017-03-24 12:00] VITALS: BP 129/80
[2017-03-24 16:00] VITALS: BP 137/66
[2017-03-24 20:00] VITALS: BP 132/88
--- NOTE | 2017-03-24 20:29 | NUR ---
PT WITHOUT DISTRESS. WATCHING TV.
--- NOTE | 2017-03-24 22:18 | NUR ---
RESTORIL GIVEN AT 2150 EFFECTIVE FOR SLEEP....PT DOZING.
[2017-03-25] VITALS: BP 139/84
[2017-03-25 05:51] LABS: BASO % 0.3 % (0.0-1.0); EOS % 0.3 % (1.0-4.0); HEMOGLOBIN 14.3 g/dl (14.0-18.0); LYMPH % 19.7 % (27.0-41.0); MEAN CELL VOLUME 93.8 fl (80.0-94.0); MEAN CORPUSCULAR HGB 31.9 pg (27.0-31.0); MEAN PLATELET VOLUME 11.5 fl (9.6-12.3); MONO # 0.7 10*3/uL (0.1-1.0); MONO % 6.3 % (3.0-9.0); NEUT # 7.6 10*3/uL (2.3-7.9); PLATELET COUNT AUTOMATED 159 10*3/uL (130-400); RED BLOOD COUNT 4.48 10*6/uL (4.50-5.90); WHITE BLOOD COUNT 10.4 10*3/uL (4.8-10.8)
[2017-03-25 06:10] LABS: ALBUMIN 3.6 gm/dl (3.1-4.5); ALKALINE PHOSPHATASE 68 U/L (45-117); BUN 22 mg/dl (7-24); CHLORIDE 105 mmol/L (98-107); CREATININE 1.05 mg/dL (0.70-1.30); POTASSIUM 3.8 mmol/L (3.5-5.1); SGOT/AST 11 IU/L (3-35); SGPT/ALT 18 U/L (12-78); SODIUM 141 mmol/L (136-145); TOTAL PROTEIN 6.5 gm/dL (6.4-8.2)
[2017-03-25 08:00] VITALS: BP 108/74
--- NOTE | 2017-03-25 09:00 | NUR ---
case management visits with patient, patient denies any home needs
[2017-03-25] MEDS ORDERED: LASIX40 MG PO (10:10)
[2017-03-25] MEDS ORDERED: LEVAQUIN750 M1 PO (10:13)
[2017-03-25] MEDS ORDERED: PREDNISONE10 MG PO (10:13)
--- NOTE | 2017-03-25 11:48 | NUR ---
Discharge instructions reviewed with patient/family. Patient receptive and verbalizes understanding. Follow-up care arranged. Written instructions given to patient/family. RUPERT GODFREY
[2017-03-26 01:06] LABS: ADENOVIRUS Negative (Negative); INFLUENZA A Negative (Negative); INFLUENZA B Negative (Negative); METAPNEUMOVIRUS Negative (Negative); PARAINFLUENZA 1 Negative (Negative); PARAINFLUENZA 2 Negative (Negative); PARAINFLUENZA 3 Negative (Negative); RHINOVIRUS Negative (Negative); RSV A Negative (Negative); RSV B Negative (Negative)
== END 2017-03-25 11:48 | disposition home or self-care (01) | DRG 871 ==
LOC: ED 07:28 → EDHOLD 08:38 → 4E 08:38
PROVIDERS: Emergency Medicine; Internal Medicine Critical Care Medicine; Registered Nurse; ADMIT Internal Medicine
DX: A41.9 Sepsis, unspecified organism (principal); J18.9 Pneumonia, unspecified organism; I50.23 Acute on chronic systolic (congestive) heart failure; M62.82 Rhabdomyolysis; I11.0 Hypertensive heart disease with heart failure; J44.0 Chronic obstructive pulmonary disease with (acute) lower respiratory infection; E66.01 Morbid (severe) obesity due to excess calories; J44.1 Chronic obstructive pulmonary disease with (acute) exacerbation; E11.65 Type 2 diabetes mellitus with hyperglycemia; K21.9 Gastro-esophageal reflux disease without esophagitis; I25.10 Atherosclerotic heart disease of native coronary artery without angina pectoris; F17.210 Nicotine dependence, cigarettes, uncomplicated; E78.00 Pure hypercholesterolemia, unspecified; I48.0 Paroxysmal atrial fibrillation; J20.9 Acute bronchitis, unspecified; F32.9 Major depressive disorder, single episode, unspecified; M19.90 Unspecified osteoarthritis, unspecified site; F41.9 Anxiety disorder, unspecified; Z95.1 Presence of aortocoronary bypass graft; Z79.4 Long term (current) use of insulin; Z88.6 Allergy status to analgesic agent; Z88.8 Allergy status to other drugs, medicaments and biological substances; Z79.82 Long term (current) use of aspirin; Z79.899 Other long term (current) drug therapy; Z87.442 Personal history of urinary calculi; Z90.49 Acquired absence of other specified parts of digestive tract; Z82.49 Family history of ischemic heart disease and other diseases of the circulatory system; Z83.3 Family history of diabetes mellitus; Z95.5 Presence of coronary angioplasty implant and graft; Z71.6 Tobacco abuse counseling; Z91.11 Patient's noncompliance with dietary regimen; Z68.37 Body mass index [BMI] 37.0-37.9, adult; Z87.01 Personal history of pneumonia (recurrent)

== ENCOUNTER → 2017-03-29 | Outpatient (CLI) | payer MEDICARE ==
--- NOTE | ~2017-03-29 | ST ---
[place], [place] EXERCISE STRESS TEST REPORT [facility] #[facility] [id number] UNIT #: [id number] ROOM: DOCTOR: ROD SEO MD BIRTHDATE: [birth year] DOS: 03/29/2017 LEXISCAN PORTION OF THE LEXISCAN CARDIOLITE. Baseline cardiogram with atrial fibrillation with controlled ventricular response. A 0.4 mg Lexiscan, duration of 10 seconds. With Lexiscan, no new EKG changes. No chest discomfort. Blood pressure and heart rate response was normal. Nuclear images will be reported separately. ROD SEO MD CM:STRESS:EXERCISE STRESS TEST REPORT [id number] ROD SEO MD
== END | disposition home or self-care (01) ==
LOC: CARD 04:50
DX: R07.89 Other chest pain (principal)

== ENCOUNTER → 2017-04-25 | Outpatient (CLI) | payer MEDICARE | END | disposition home or self-care (01) | LOC: RAD 09:57 | DX: I11.0 Hypertensive heart disease with heart failure (principal); I50.9 Heart failure, unspecified; I25.10 Atherosclerotic heart disease of native coronary artery without angina pectoris; J44.9 Chronic obstructive pulmonary disease, unspecified; E11.9 Type 2 diabetes mellitus without complications; F17.200 Nicotine dependence, unspecified, uncomplicated; Z95.1 Presence of aortocoronary bypass graft ==

== ENCOUNTER 2017-05-05 10:51 | Emergency (ER) | payer MEDICARE ==
[~2017-05-05] VITALS: Ht 182.8 cm; Wt 128.8 kg
[2017-05-05] MEDS ORDERED: Peridex 473 ML473 ML PO ×2 (13:19→13:29)
[2017-05-05] MEDS ORDERED: CLINDAMYCIN150 MG PO ×2 (13:19→13:29)
== END 2017-05-05 13:26 | disposition home or self-care (01) ==
LOC: ED 10:51
DX: K08.89 Other specified disorders of teeth and supporting structures (principal); I11.0 Hypertensive heart disease with heart failure; I50.9 Heart failure, unspecified; I25.10 Atherosclerotic heart disease of native coronary artery without angina pectoris; E11.9 Type 2 diabetes mellitus without complications; F41.9 Anxiety disorder, unspecified; F32.9 Major depressive disorder, single episode, unspecified; K21.9 Gastro-esophageal reflux disease without esophagitis; E87.6 Hypokalemia; J44.1 Chronic obstructive pulmonary disease with (acute) exacerbation; E78.5 Hyperlipidemia, unspecified; I48.0 Paroxysmal atrial fibrillation; F17.200 Nicotine dependence, unspecified, uncomplicated; Z88.8 Allergy status to other drugs, medicaments and biological substances; Z88.6 Allergy status to analgesic agent; Z79.82 Long term (current) use of aspirin; Z79.84 Long term (current) use of oral hypoglycemic drugs; Z79.4 Long term (current) use of insulin; Z79.899 Other long term (current) drug therapy; Z90.49 Acquired absence of other specified parts of digestive tract; Z95.1 Presence of aortocoronary bypass graft

== ENCOUNTER 2017-05-13 07:38 | Inpatient (IN) | payer MEDICARE ==
[2017-05-13] VITALS (7 sets, daily range): BP systolic 104–146; BP diastolic 68–82
[~2017-05-13] VITALS: Ht 182.8 cm; Wt 131.1 kg
[~2017-05-13 07:38] MED LIST changes: +CLINDAMYCIN150 MG PO; +Peridex 473 ML473 ML PO
[2017-05-13 08:04] LABS: BASO # 0.1 10*3/uL (0.0-0.1); EOS # 0.1 10*3/uL (0.0-0.4); EOS % 1.5 % (1.0-4.0); HEMATOCRIT 35.7 % (42.0-52.0); HEMOGLOBIN 12.3 g/dl (14.0-18.0); LYMPH # 1.2 10*3/uL (1.3-4.4); LYMPH % 17.9 % (27.0-41.0); MEAN CELL VOLUME 94.4 fl (80.0-94.0); MEAN CORPUSCULAR HGB 32.5 pg (27.0-31.0); MEAN CORPUSCULAR HGB CONC 34.5 g/dl (33.0-37.0); MEAN PLATELET VOLUME 10.5 fl (9.6-12.3); MONO # 0.4 10*3/uL (0.1-1.0); MONO % 6.2 % (3.0-9.0); NEUT % 73.1 % (47.0-73.0); PLATELET COUNT AUTOMATED 148 10*3/uL (130-400); RED BLOOD COUNT 3.78 10*6/uL (4.50-5.90); RED CELL DISTRI WIDTH 13.9 % (0-14.5); WHITE BLOOD COUNT 6.8 10*3/uL (4.8-10.8)
[2017-05-13 08:14] LABS: ACT PARTIAL THROMBO TIME 23.7 SECONDS (20.8-31.5); INTERNATIONAL NORM RATIO 0.9 (2.0-3.5)
[2017-05-13 08:20] LABS: ALBUMIN 3.4 gm/dl (3.1-4.5); ALKALINE PHOSPHATASE 87 U/L (45-117); BUN 14 mg/dl (7-24); CHLORIDE 107 mmol/L (98-107); CREATININE 1.13 mg/dL (0.70-1.30); POTASSIUM 3.7 mmol/L (3.5-5.1); SGOT/AST 17 IU/L (3-35); SGPT/ALT 25 U/L (12-78); SODIUM 142 mmol/L (136-145); TOTAL PROTEIN 6.8 gm/dL (6.4-8.2)
[2017-05-13 08:21] LABS: TROPONIN I 0.029 ng/ml (<0.045)
[2017-05-13 08:32] LABS: ABG BASE EXCESS -0.9 mmol/L (-2.0-2.0); ABG HCO3 23.7 mmol/l (22-26); ARTERIAL BLOOD GAS PCO2 39.8 mmHg (35-45); ARTERIAL BLOOD GAS PH 7.388 (7.35-7.45); ARTERIAL BLOOD GAS PO2 75.7 mmHg (80-90)
--- NOTE | 2017-05-13 08:50 | NUR ---
CHANELL CONDE NOTIFIED THAT PATIENT IS ON THE FLOOR AND HOME MEDICATIONS VERIFIED.
--- NOTE | 2017-05-13 09:00 | NUR ---
Time: 899 A 62 year old MALE admitted to 5E under services of MALIKA EDWARD DO, Pt. arrived via bed from ER. Chief complaint: CHF, ATRIAL FIBRILLATION WITH RVR. PEYMAN CHAVEZ
--- NOTE | 2017-05-13 09:00 | NUR ---
CHANELL CONDE IN TO SEE PATIENT. NO FURTHER ORDERS AT THIS TIME.
--- NOTE | 2017-05-13 10:00 | NUR ---
CONTACTED ANSWERING SERVICE FOR DR. SEO. HE IS OFF FOR THE HOLIDAY. WAS PAGED VIA CALLING SERVICE FOR [employer] REGARDING CHF.
[2017-05-13 10:46] LABS: BILIRUBIN NEGATIVE (NEGATIVE); BLOOD NEGATIVE (NEGATIVE); CLARITY CLEAR (CLEAR); COLOR YELLOW (YELLOW); GLUCOSE 2+ (NEGATIVE); KETONE NEGATIVE (NEGATIVE); LEUKO ESTERASE NEGATIVE (NEGATIVE); NITRITE NEGATIVE (NEGATIVE); PH 6.5 (5.0-9.0); SPECIFIC GRAVITY <= 1.005 (1.005-1.030); UROBILINOGEN 0.2 E.U./dl (0.2-1.0)
[2017-05-13 11:00] LABS: WBC 0-2 wbc/hpf (0-5); YEAST TRACE
--- NOTE | 2017-05-13 13:49 | NUR ---
PATIENT IS RESTING ON THEIR RIGHT SIDE IN BED WITH A FAMILY MEMBER AT THE BEDSIDE. PATIENT DENIES ANY CHEST PAIN OR DISCOMFORT AT THIS TIME. PATIENT IS MONITORED. PATIENT VERBALIZES FEELING SOB UPON AMBULATING TO THE RESTROOM. PATIENT IS ON A FLUID RESTRICTION. NO FURTHER REQUESTS AT THIS TIME. CALL LIGHT WITHIN REACH. SEE ASSESSMENT.
--- NOTE | 2017-05-13 18:33 | NUR ---
PATIENT RESTING IN BED WITH THE FAN ON. PATIENT IS MONITORED. PATIENT DENIES ANY PAIN OR DISCOMFORT THROUGHOUT THE SHIFT, PATIENT HAS HAD SEVERAL EPISODES OF SOB WITH EXPIRATORY WHEEZES. PT IS RECEIVING 4LPM NC. PATIENT IS AMBULATORY AND A&OX3. BED IN LOWEST POSITION, CALL LIGHT WITHIN REACH. SEE ASSESSMENT.
--- NOTE | 2017-05-13 20:58 | NUR ---
PT. AWAKE, ALERT AND ORIENTED X 3 AT THIS TIME. PT. UP IN CHAIR WITH VISITOR IN THE ROOM. PT. DENIES SOB AT REST, DENIES CP, AND PAIN AT THIS TIME. PT. C/O DANIEL, CURRENTLY ON 4L O2 VIA NC. CALL LIGHT WITHIN REACH, BED IN LOWEST POSITION, WHEELS LOCKED. SEE SHIFT ASSESSMENT.
[2017-05-14] VITALS: BP 114/65
--- NOTE | 2017-05-14 03:15 | NUR ---
CONTACTED DR. FAUST AT THIS TIME FOR PTS. C/O NAUSEA. DR. FAUST UPDATED ON PTS. STATUS AND QT INTERVAL. STATED HE WILL PUT IN AN ORDER FOR ZOFRAN.
--- NOTE | 2017-05-14 06:06 | NUR ---
ZOFRAN FOR PT. C/O NAUSEA MARKED NOT GIVEN. WHEN INITIALLY ATTEMPTING TO GIVE PT. ZOFRAN, PT. WAS SLEEPING. AT THIS TIME, PT. STATES HE IS NO LONGER FEELING NAUSEOUS.
[2017-05-14 06:30] LABS: BASO # 0.1 10*3/uL (0.0-0.1); BASO % 1.1 % (0.0-1.0); EOS # 0.1 10*3/uL (0.0-0.4); EOS % 1.6 % (1.0-4.0); HEMATOCRIT 34.9 % (42.0-52.0); LYMPH # 1.2 10*3/uL (1.3-4.4); LYMPH % 19.2 % (27.0-41.0); MEAN CELL VOLUME 94.6 fl (80.0-94.0); MEAN CORPUSCULAR HGB 32.5 pg (27.0-31.0); MEAN CORPUSCULAR HGB CONC 34.4 g/dl (33.0-37.0); MONO # 0.4 10*3/uL (0.1-1.0); MONO % 6.8 % (3.0-9.0); NEUT # 4.5 10*3/uL (2.3-7.9); PLATELET COUNT AUTOMATED 157 10*3/uL (130-400); RED BLOOD COUNT 3.69 10*6/uL (4.50-5.90); RED CELL DISTRI WIDTH 14.1 % (0-14.5); WHITE BLOOD COUNT 6.4 10*3/uL (4.8-10.8)
[2017-05-14 06:47] LABS: CHLORIDE 106 mmol/L (98-107); POTASSIUM 3.5 mmol/L (3.5-5.1); SODIUM 143 mmol/L (136-145)
[2017-05-14 06:56] LABS: ALBUMIN 3.3 gm/dl (3.1-4.5); ALKALINE PHOSPHATASE 83 U/L (45-117); BUN 15 mg/dl (7-24); PHOSPHOROUS 2.9 mg/dL (2.5-4.9); SGOT/AST 18 IU/L (3-35); SGPT/ALT 26 U/L (12-78); TOTAL PROTEIN 6.6 gm/dL (6.4-8.2)
--- NOTE | 2017-05-14 07:45 | NUR ---
PT AWAKE. ASSESSMENT COMPLETE. ROUTINE MEDS TOLERATED. NO PT COMPLAINTS AT THIS TIME.
[2017-05-14 08:00] VITALS: BP 116/72
--- NOTE | 2017-05-14 11:20 | NUR ---
ADMINISTERED PO NORCO PER PT REQUEST FOR C/O HEADACHE RATED 7/10. WILL MONITOR FOR EFFECTIVENESS.
[2017-05-14 12:00] VITALS: BP 128/86
--- NOTE | 2017-05-14 12:15 | NUR ---
Patient resting quietly with no c/o discomfort. Respirations easy and regular. Vital signs stable. No overt distress. LUCY REDDY
[2017-05-14 16:00] VITALS: BP 116/77
[2017-05-14 20:00] VITALS: BP 112/59
--- NOTE | 2017-05-14 23:30 | NUR ---
IN TO SEE PT. AT THIS TIME FOLLOWING REPORT. PT. ALERT, ORIENTED X3. PT. DENIES CP, SOB AT REST, AND PAIN. CALL LIGHT WITHIN REACH, BED IN LOWEST POSITION, WHEELS LOCKED. SEE SHIFT ASSESSMENT.
[2017-05-15] VITALS: BP 133/78
[2017-05-15 06:26] LABS: BASO # 0.1 10*3/uL (0.0-0.1); BASO % 1.4 % (0.0-1.0); EOS # 0.1 10*3/uL (0.0-0.4); EOS % 2.4 % (1.0-4.0); HEMATOCRIT 39.1 % (42.0-52.0); HEMOGLOBIN 13.1 g/dl (14.0-18.0); LYMPH # 1.8 10*3/uL (1.3-4.4); LYMPH % 30.4 % (27.0-41.0); MEAN CELL VOLUME 93.5 fl (80.0-94.0); MEAN CORPUSCULAR HGB 31.3 pg (27.0-31.0); MEAN CORPUSCULAR HGB CONC 33.5 g/dl (33.0-37.0); MEAN PLATELET VOLUME 11.1 fl (9.6-12.3); MONO # 0.4 10*3/uL (0.1-1.0); MONO % 6.7 % (3.0-9.0); NEUT # 3.5 10*3/uL (2.3-7.9); NEUT % 58.8 % (47.0-73.0); PLATELET COUNT AUTOMATED 185 10*3/uL (130-400); RED BLOOD COUNT 4.18 10*6/uL (4.50-5.90); RED CELL DISTRI WIDTH 13.9 % (0-14.5); WHITE BLOOD COUNT 5.9 10*3/uL (4.8-10.8)
[2017-05-15 06:57] LABS: BUN 18 mg/dl (7-24); CHLORIDE 108 mmol/L (98-107); CREATININE 0.84 mg/dL (0.70-1.30); PHOSPHOROUS 3.2 mg/dL (2.5-4.9); POTASSIUM 3.3 mmol/L (3.5-5.1); SODIUM 144 mmol/L (136-145)
[2017-05-15 08:00] VITALS: BP 100/50
--- NOTE | 2017-05-15 12:45 | NUR ---
Discharge instructions reviewed with patient/family. Patient receptive and verbalizes understanding. Follow-up care arranged. Written instructions given to patient/family. LUCY REDDY
== END 2017-05-15 12:44 | disposition home or self-care (01) | DRG 292 ==
LOC: ED 07:38 → EDHOLD 08:19 → 5E 08:28
PROVIDERS: Emergency Medicine; Internal Medicine Nephrology; Registered Nurse; ADMIT Internal Medicine
DX: I11.0 Hypertensive heart disease with heart failure (principal); R65.10 Systemic inflammatory response syndrome (SIRS) of non-infectious origin without acute organ dysfunction; E44.0 Moderate protein-calorie malnutrition; Z93.0 Tracheostomy status; E11.65 Type 2 diabetes mellitus with hyperglycemia; Z95.1 Presence of aortocoronary bypass graft; Z68.41 Body mass index [BMI] 40.0-44.9, adult; I48.0 Paroxysmal atrial fibrillation; F41.9 Anxiety disorder, unspecified; I25.10 Atherosclerotic heart disease of native coronary artery without angina pectoris; M19.90 Unspecified osteoarthritis, unspecified site; E78.5 Hyperlipidemia, unspecified; K21.9 Gastro-esophageal reflux disease without esophagitis; E66.9 Obesity, unspecified; J44.9 Chronic obstructive pulmonary disease, unspecified; I50.23 Acute on chronic systolic (congestive) heart failure; Z88.6 Allergy status to analgesic agent; Z88.8 Allergy status to other drugs, medicaments and biological substances; Z79.899 Other long term (current) drug therapy; Z79.84 Long term (current) use of oral hypoglycemic drugs; Z79.4 Long term (current) use of insulin; Z87.442 Personal history of urinary calculi; Z90.49 Acquired absence of other specified parts of digestive tract; Z95.5 Presence of coronary angioplasty implant and graft; Z82.49 Family history of ischemic heart disease and other diseases of the circulatory system; Z83.3 Family history of diabetes mellitus; Z87.01 Personal history of pneumonia (recurrent); Z72.0 Tobacco use; Z71.6 Tobacco abuse counseling

== ENCOUNTER → 2017-05-19 | Outpatient (CLI) | payer MEDICARE | END | disposition home or self-care (01) | LOC: RAD 15:46 | DX: M47.897 Other spondylosis, lumbosacral region (principal) ==

== ENCOUNTER → 2017-06-03 | Outpatient (CLI) | payer MEDICARE | END | disposition home or self-care (01) | LOC: CARD 09:24 | DX: I25.10 Atherosclerotic heart disease of native coronary artery without angina pectoris (principal); I25.5 Ischemic cardiomyopathy ==

== ENCOUNTER 2017-09-09 05:16 | Inpatient (IN) | payer MEDICARE ==
[~2017-09-09] VITALS: Ht 182.9 cm; Wt 122.6 kg
--- NOTE | ~2017-09-09 | PR ---
[place], [place] PROGRESS NOTE NAME: ARTI HAAS [facility] #: [id number] UNIT #: [id number] ROOM: 411 DOCTOR: RADHA LEE MD,YOBANI BIRTHDATE: [birth year] DOS: 09/11/2017 SUBJECTIVE: The patient was noted comfortable at this time without any acute distress. Shortness of breath other symptoms have been gradually subsiding. There were no symptoms of hemoptysis or any chest pain. OBJECTIVE: VITAL SIGNS: Normal temperature, respiratory rate 20, heart rate of 64, blood pressure 135/73. Pulse oxygen saturation recorded as 100% on 2 liters nasal cannula. HEENT: Examination shows head was atraumatic. Eyes nonicterus. NECK: Supple. CARDIOVASCULAR: S1, S2 was audible. LUNGS: The patient was noted without any wheezing or crackles at present time. ABDOMEN: Soft, nontender. EXTREMITIES: Without any acute edema. IMPRESSION: The patient with significant improvement was noted with acute exacerbation of chronic obstructive pulmonary disease and acute bronchitis progressively. PLAN OF MANAGEMENT: No changes from the pulmonary standpoint. If the patient could be considered for home discharge, tapering dose of prednisone and the antibiotics will be necessary. Tobacco cessation was encouraged. YOBANI GARCIA MD CM:PNTRANS [phone] YOBANI LEE MD 09/11/171935 interface
--- NOTE | ~2017-09-09 | CON ---
[place], [place] REPORT OF CONSULTATION NAME: ARTI HAAS [facility] #: [id number] UNIT #: [id number] ROOM: 411 DOCTOR: YOBANI COYNE MD BIRTHDATE: [birth year] DOS: 09/09/2017 PULMONARY CONSULTATION, EVALUATION, AND MANAGEMENT CONSULTATION REQUESTED BY: Hospitalist services. REASON FOR CONSULTATION: Assess the patient for acute COPD exacerbation. HISTORY OF PRESENT ILLNESS: This is a 62-year-old white male known with past history of obstructive sleep apnea disorder, COPD and others. He presented to the hospital. The patient was noted with ongoing acute illness lasting for about a week or so. He denies any symptoms of chest pain. The symptoms started with increased shortness of breath for the past few days associated with a cough, which was noted moderate to severe, nonproductive. He was also reported with symptoms of wheezing and tightness in the chest. There were no symptoms of chest pain reported. The patient denies any symptoms of chest trauma. He had been currently admitted to the hospital for the medical management of acute exacerbation of COPD. REVIEW OF SYSTEMS: CONSTITUTIONAL: Fatigue and tiredness noted without any symptoms of chills. The patient reported that he may have fever, but did not check his temperature to record the temperature exactly. EYES: Denies any burning, redness, or discharge. EARS, NOSE, AND THROAT: Denies sore throat, otalgia, postnasal drainage, or epistaxis. CARDIOVASCULAR: Denies anginal pain, edema, or pain in lower extremities. GASTROINTESTINAL: No dysphagia, nausea, vomiting, diarrhea, abdominal pain, hematemesis, melena, hematochezia, or abnormal weight loss history. GENITOURINARY: No dysuria, suprapubic pain, or hematuria. MUSCULOSKELETAL: No joint pain, redness, tenderness or deformities. SKIN: Denies abnormal lesions or rashes. CENTRAL NERVOUS SYSTEM: No dizziness, headache, diplopia, syncopal episode, tingling sensation of the extremities. Remaining systems were reviewed of the patient, they were noted all negative. PAST MEDICAL HISTORY: 1. History of COPD with centrilobular and paraseptal emphysema. 2. Congestive heart failure with diastolic dysfunction. 3. Coronary artery disease. 4. Atrial fibrillation. 5. Diabetes mellitus. 6. Moderate obesity. 7. Hypercholesterolemia. 8. Degenerative arthritis. 9. Anxiety, depression. 10. Chronic persistent nicotine dependence. PAST SURGICAL HISTORY: 1. Coronary artery bypass graft in 2005. [place], [place] REPORT OF CONSULTATION NAME: ARTI HAAS UNIT #: [id number] ROOM: 411 DOCTOR: RADHA LEE MD,YOBANI BIRTHDATE: [birth year] 2. Right rotator cuff surgery. 3. Past tracheostomy and decannulation for the medical management after the respiratory failure of the patient for lung in 2010. SOCIAL HISTORY: The patient is and lives at home. Denies any history of alcohol use or drug use. Tobacco use is noted chronic, use of tobacco since teenager, 1 pack or more of cigarettes per day previously and currently smoking a pack of cigarettes per day. 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 FAMILY HISTORY: The patient's father , history unknown. Mother at age of 40 years from unknown medical illnesses. MEDICATIONS: Currently administered medication noted use of aspirin, Plavix, Breo Ellipta, lisinopril, digoxin, metformin, omeprazole, Coreg, Eliquis, Lasix 80 mg b.i.d., potassium chloride, gemfibrozil, amiodarone, famotidine, Lipitor, sliding scale, Solu-Medrol 40 mg every 8 hours, Levaquin, and other p.r.n. medication administration. DRUG ALLERGIES: THE PATIENT WAS NOTED WITH ALLERGIES TO: 1. MORPHINE SULFATE. 2. FENTANYL. 3. METHADONE. 4. BENTYL. PHYSICAL EXAMINATION: GENERAL: A 62-year-old white male who has been currently noted resting on his bed. The patient is noted with mild tachypnea at rest. VITAL SIGNS: Height of 6 feet, weight of 276 pounds. Normal temperature, respiratory rate 20, heart rate of 90, blood pressure 120/64-141/77. Pulse oxygen saturation of the patient noted on room air 92% saturation at rest. HEENT: Head atraumatic. Eyes nonicterus. NECK: Supple. Moderate decreased posterior pharyngeal space. CARDIOVASCULAR: S1, S2 is audible. LUNGS: Diffuse reduction in breath sounds with expiratory wheezing without any crackles. ABDOMEN: Soft, nontender, moderate obesity. Bowel sounds present. There was no tenderness. EXTREMITIES: Without any acute edema, clubbing, or cyanosis. CENTRAL NERVOUS SYSTEM: The patient's cranial nerves 2-12 intact. MUSCULOSKELETAL: Without any acute deformities. CENTRAL NERVOUS SYSTEM: Cranial nerves 2-12 intact. There were no focal deficits. SKIN: Visible skin, no lesions or rashes. LABORATORY DATA: The lactic acid noted normal this morning on admission. CBC on admission, WBC count 6.9, hemoglobin 13.9, hematocrit 41.7, platelet count was normal. The PT/INR of the patient was noted as normal this morning. CMP this morning, normal BUN and creatinine. Potassium 3.4, remaining LFTs normal. [place], [place] REPORT OF CONSULTATION NAME: ARTI HAAS UNIT #: [id number] ROOM: [facility] DOCTOR: RADHA LEE MD,[facility] BIRTHDATE: [birth year] IMAGING STUDIES: The chest x-ray of the patient was noted with increased interstitial infiltration noted in the left lower lobe but one-view not noted very clearcut finding. The patient had a CT scan of the chest that was completed, ordered by the primary care attending , was reviewed and shows current finding on the chest x-ray noted consistent with acute infiltration in the left lower lobe that would be suggested as etiology. Small ground-glass opacity was noted in the right upper lobe as well. There were no large areas of consolidation seen. There was no abnormal visible gross pulmonary nodules as well or lymphadenopathy or pleural effusions. IMPRESSION: 1. The patient who has been currently admitted to the hospital with recurrence of acute exacerbation of COPD and chronic nicotine dependence. 2. The patient with moderate obesity. 3. History of atrial fibrillation, on multiple medications including the use of Eliquis for anticoagulation, currently, noted heart rate in controlled range. PLAN OF MANAGEMENT: I agree with use of the corticosteroids, bronchodilators, antibiotics. Continue with home medication, Breo Ellipta. Continue current antibiotic. Obtain the sputum for Gram stain and culture. Monitoring the patient for progression of the illness. In case of any worsening deterioration for this patient, further change in medication recommended, otherwise gradual reduction of steroids will be started hopefully from tomorrow. Additional treatment changes will be done for the patient based on the illness progression. YOBANI GARCIA MD CM:CONSTR:REPORT OF CONSULTATION 1342 09/10/17 0156 interface
--- NOTE | ~2017-09-09 | PR ---
[place], [place] PROGRESS NOTE NAME: ARTI HAAS [facility] #: [id number] UNIT #: [id number] ROOM: 411 DOCTOR: RADHA LEE MD,YOBANI BIRTHDATE: [birth year] DOS: 09/10/2017 SUBJECTIVE: The patient noted without any acute new respiratory complaints at this time, was noted quite comfortable. Reduction in shortness breath, cough and wheezing was reported by the patient last time, following with current medical management. OBJECTIVE: VITAL SIGNS: Normal temperature, respiratory rate 20, heart rate 84, blood pressure 124/84. The pulse oxygen saturation of the patient recorded as 97% on room air. HEENT: No acute change. NECK: Supple. CARDIOVASCULAR: S1, S2 audible. LUNGS: Mild to moderate decreased breath sounds and reduction in the wheezing noted. Expiratory wheezing noted in the lungs bilaterally, but the intensity has been decreased. There were no crackles. ABDOMEN: Soft, nontender. EXTREMITIES: Without any acute edema. IMPRESSION: 1. The patient with the possibility of acute pneumonia in superior segment of the left lower lobe for the patient noted. CT scan of the chest that was done yesterday. 2. Resolving acute exacerbation of chronic obstructive pulmonary disease, reduction in respiratory symptom. 3. History of nicotine dependence. PLAN OF MANAGEMENT: Dose of Solu-Medrol will be decreased. Continue antibiotics, bronchodilator treatment, plan of care as in progress. No other change in treatment needs to be done. YOBANI GARCIA MD CM:PNTRANS 1309 [id number] YOBANI LEE MD 09/15/17 0944 interface
[2017-09-09 05:21] VITALS: BP 141/77
[2017-09-09 06:03] LABS: BASO # 0.1 10*3/uL (0.0-0.1); BASO % 0.9 % (0.0-1.0); EOS # 0.1 10*3/uL (0.0-0.4); EOS % 1.3 % (1.0-4.0); HEMATOCRIT 41.7 % (42.0-52.0); HEMOGLOBIN 13.9 g/dl (14.0-18.0); LYMPH # 0.7 10*3/uL (1.3-4.4); LYMPH % 9.9 % (27.0-41.0); MEAN CELL VOLUME 93.3 fl (80.0-94.0); MEAN CORPUSCULAR HGB 31.1 pg (27.0-31.0); MEAN CORPUSCULAR HGB CONC 33.3 g/dl (33.0-37.0); MEAN PLATELET VOLUME 10.4 fl (9.6-12.3); MONO # 0.5 10*3/uL (0.1-1.0); MONO % 6.8 % (3.0-9.0); NEUT # 5.6 10*3/uL (2.3-7.9); NEUT % 80.7 % (47.0-73.0); PLATELET COUNT AUTOMATED 149 10*3/uL (130-400); RED BLOOD COUNT 4.47 10*6/uL (4.50-5.90); RED CELL DISTRI WIDTH 13.5 % (0-14.5); WHITE BLOOD COUNT 6.9 10*3/uL (4.8-10.8)
[2017-09-09 06:18] LABS: BILIRUBIN 1+ (NEGATIVE); BLOOD NEGATIVE (NEGATIVE); CLARITY CLEAR (CLEAR); COLOR YELLOW (YELLOW); GLUCOSE NEGATIVE (NEGATIVE); KETONE NEGATIVE (NEGATIVE); LEUKO ESTERASE NEGATIVE (NEGATIVE); NITRITE NEGATIVE (NEGATIVE); SPECIFIC GRAVITY 1.015 (1.005-1.030)
[2017-09-09 06:20] LABS: ALBUMIN 3.9 gm/dl (3.1-4.5); ALKALINE PHOSPHATASE 92 U/L (45-117); BUN 14 mg/dl (7-24); CHLORIDE 107 mmol/L (98-107); CREATININE 1.05 mg/dL (0.70-1.30); LIPASE 89 U/L (73-393); POTASSIUM 3.4 mmol/L (3.5-5.1); SGOT/AST 35 IU/L (3-35); SGPT/ALT 49 U/L (12-78); SODIUM 143 mmol/L (136-145); TOTAL PROTEIN 7.4 gm/dL (6.4-8.2)
[2017-09-09 06:34] LABS: TROPONIN I < 0.015 ng/ml (<0.045)
[2017-09-09 06:40] LABS: MUCOUS TRACE; RBC 0-2 rbc/hpf (0-2)
[2017-09-09 07:30] VITALS: BP 120/64
[2017-09-09 08:00] VITALS: BP 120/64
[2017-09-09] MEDS ORDERED: ASPIR LOW81 MG PO (08:52)
[2017-09-09] MEDS ORDERED: LASIX80 MG PO (08:54)
[2017-09-09] MEDS ORDERED: ELIQUIS5 M1 PO (08:57)
[2017-09-09] MEDS ORDERED: VICODIN ES 7.51 EACH PO (09:11)
[2017-09-09 12:00] VITALS: BP 132/81
[2017-09-09 16:00] VITALS: BP 138/63
[2017-09-09 20:00] VITALS: BP 130/55
[2017-09-10] VITALS: BP 149/85
[2017-09-10 06:40] LABS: BASO % 0.1 % (0.0-1.0); HEMATOCRIT 37.8 % (42.0-52.0); HEMOGLOBIN 12.7 g/dl (14.0-18.0); LYMPH # 0.5 10*3/uL (1.3-4.4); LYMPH % 5.6 % (27.0-41.0); MEAN CELL VOLUME 93.3 fl (80.0-94.0); MEAN CORPUSCULAR HGB 31.4 pg (27.0-31.0); MEAN CORPUSCULAR HGB CONC 33.6 g/dl (33.0-37.0); MEAN PLATELET VOLUME 10.9 fl (9.6-12.3); MONO # 0.3 10*3/uL (0.1-1.0); MONO % 4.1 % (3.0-9.0); NEUT # 7.2 10*3/uL (2.3-7.9); NEUT % 89.7 % (47.0-73.0); PLATELET COUNT AUTOMATED 158 10*3/uL (130-400); RED BLOOD COUNT 4.05 10*6/uL (4.50-5.90); RED CELL DISTRI WIDTH 13.3 % (0-14.5); WHITE BLOOD COUNT 8.1 10*3/uL (4.8-10.8)
[2017-09-10 06:58] LABS: ALBUMIN 3.5 gm/dl (3.1-4.5); ALKALINE PHOSPHATASE 83 U/L (45-117); BUN 15 mg/dl (7-24); CHLORIDE 105 mmol/L (98-107); CREATININE 1.06 mg/dL (0.70-1.30); PHOSPHOROUS 2.6 mg/dL (2.5-4.9); POTASSIUM 4.2 mmol/L (3.5-5.1); SGOT/AST 19 IU/L (3-35); SGPT/ALT 42 U/L (12-78); SODIUM 139 mmol/L (136-145); TOTAL PROTEIN 6.9 gm/dL (6.4-8.2)
[2017-09-10 08:00] VITALS: BP 130/64
[2017-09-10 12:00] VITALS: BP 126/84
[2017-09-10 16:00] VITALS: BP 122/86
[2017-09-10 20:00] VITALS: BP 108/68
[2017-09-11] VITALS: BP 111/67
[2017-09-11 06:43] LABS: BUN 20 mg/dl (7-24); CHLORIDE 102 mmol/L (98-107); CREATININE 1.16 mg/dL (0.70-1.30); POTASSIUM 3.8 mmol/L (3.5-5.1); SODIUM 141 mmol/L (136-145)
[2017-09-11 06:53] LABS: DIGOXIN 0.51 ng/ml (0.8-2.0)
[2017-09-11 08:00] VITALS: BP 117/78
[2017-09-11 12:00] VITALS: BP 135/73
[2017-09-11] MEDS ORDERED: DOXYCYCLINE100 M3 PO (13:30)
[2017-09-11] MEDS ORDERED: PREDNISONE10 MG PO (13:30)
[2017-09-11] MEDS ORDERED: VITAMIN D-32000 UNIT PO (13:30)
[2017-09-11 16:00] VITALS: BP 142/80
[2017-09-11 20:00] VITALS: BP 137/88
[2017-09-12] VITALS: BP 109/77
[2017-09-12 08:00] VITALS: BP 109/77
== END 2017-09-12 08:24 | disposition home or self-care (01) | DRG 871 ==
LOC: ED 05:16 → 4E 06:32 → EDHOLD 06:32 → EDBEDREQ 06:39 → EDBEDREQSVC 06:39 → 4E 06:40
PROVIDERS: Emergency Medicine Emergency Medical Services; Internal Medicine Hospice and Palliative Medicine; Student in an Organized Health Care Education/Training Program
DX: A41.9 Sepsis, unspecified organism (principal); J18.1 Lobar pneumonia, unspecified organism; I11.0 Hypertensive heart disease with heart failure; I50.42 Chronic combined systolic (congestive) and diastolic (congestive) heart failure; I48.0 Paroxysmal atrial fibrillation; J44.0 Chronic obstructive pulmonary disease with (acute) lower respiratory infection; J44.1 Chronic obstructive pulmonary disease with (acute) exacerbation; J98.11 Atelectasis; I25.10 Atherosclerotic heart disease of native coronary artery without angina pectoris; F41.9 Anxiety disorder, unspecified; E55.9 Vitamin D deficiency, unspecified; E87.6 Hypokalemia; K21.9 Gastro-esophageal reflux disease without esophagitis; M19.90 Unspecified osteoarthritis, unspecified site; F32.9 Major depressive disorder, single episode, unspecified; E11.9 Type 2 diabetes mellitus without complications; F17.210 Nicotine dependence, cigarettes, uncomplicated; R59.0 Localized enlarged lymph nodes; J20.9 Acute bronchitis, unspecified; E78.00 Pure hypercholesterolemia, unspecified; E66.8 Other obesity; Z68.37 Body mass index [BMI] 37.0-37.9, adult; Z88.5 Allergy status to narcotic agent; Z88.8 Allergy status to other drugs, medicaments and biological substances; Z87.01 Personal history of pneumonia (recurrent); Z87.442 Personal history of urinary calculi; Z90.49 Acquired absence of other specified parts of digestive tract; Z95.1 Presence of aortocoronary bypass graft; Z95.5 Presence of coronary angioplasty implant and graft; Z82.49 Family history of ischemic heart disease and other diseases of the circulatory system; Z83.3 Family history of diabetes mellitus; Z79.899 Other long term (current) drug therapy; Z79.84 Long term (current) use of oral hypoglycemic drugs; Z79.02 Long term (current) use of antithrombotics/antiplatelets; Z79.82 Long term (current) use of aspirin; Z71.6 Tobacco abuse counseling

== ENCOUNTER → 2017-09-21 | Outpatient (CLI) | payer MEDICARE ==
[~2017-09-21] MED LIST changes: +ASPIR LOW81 MG PO; +ELIQUIS5 M1 PO; +VICODIN ES 7.51 EACH PO; +VITAMIN D-32000 UNIT PO
== END | disposition home or self-care (01) ==
LOC: RAD 11:10
DX: S82.899A Other fracture of unspecified lower leg, initial encounter for closed fracture (principal); X58.XXXA Exposure to other specified factors, initial encounter; Y93.89 Activity, other specified; Y92.89 Other specified places as the place of occurrence of the external cause; Y99.8 Other external cause status

== ENCOUNTER → 2017-09-22 | Outpatient (CLI) | payer MEDICARE | END | disposition home or self-care (01) | LOC: LAB 07:20 | DX: D64.9 Anemia, unspecified (principal) ==

== ENCOUNTER → 2017-09-26 | Outpatient (CLI) | payer MEDICARE ==
[2017-09-26 08:54] LABS: BASO # 0.1 10*3/uL (0.0-0.1); BASO % 0.7 % (0.0-1.0); EOS # 0.1 10*3/uL (0.0-0.4); EOS % 1.1 % (1.0-4.0); HEMATOCRIT 42.2 % (42.0-52.0); HEMOGLOBIN 14.1 g/dl (14.0-18.0); LYMPH # 1.9 10*3/uL (1.3-4.4); LYMPH % 22.5 % (27.0-41.0); MEAN CELL VOLUME 92.7 fl (80.0-94.0); MEAN CORPUSCULAR HGB CONC 33.4 g/dl (33.0-37.0); MEAN PLATELET VOLUME 10.3 fl (9.6-12.3); MONO # 0.5 10*3/uL (0.1-1.0); MONO % 6.3 % (3.0-9.0); NEUT # 5.7 10*3/uL (2.3-7.9); NEUT % 68.9 % (47.0-73.0); PLATELET COUNT AUTOMATED 142 10*3/uL (130-400); RED BLOOD COUNT 4.55 10*6/uL (4.50-5.90); RED CELL DISTRI WIDTH 13.5 % (0-14.5); WHITE BLOOD COUNT 8.3 10*3/uL (4.8-10.8)
[2017-09-26 09:28] LABS: ALBUMIN 3.4 gm/dl (3.1-4.5); BUN 18 mg/dl (7-24); CHLORIDE 107 mmol/L (98-107); CHOLESTEROL 137 mg/dL (<200); CREATININE 1.08 mg/dL (0.70-1.30); POTASSIUM 3.6 mmol/L (3.5-5.1); SGOT/AST 12 IU/L (3-35); SGPT/ALT 24 U/L (12-78); SODIUM 142 mmol/L (136-145); TOTAL PROTEIN 6.6 gm/dL (6.4-8.2); TRIGLYCERIDES 105 mg/dl (<150); VLDL CHOLESTEROL 21 mg/dL (6-40)
[2017-09-26 09:29] LABS: ALKALINE PHOSPHATASE 76 U/L (45-117); HDL CHOLESTEROL 38 mg/dl (40-60); LDL CHOLESTEROL 78 mg/dL (9-159)
== END | disposition home or self-care (01) ==
LOC: LAB 08:37
PROVIDERS: Nurse Practitioner Family
DX: E78.5 Hyperlipidemia, unspecified (principal); I10 Essential (primary) hypertension; E11.9 Type 2 diabetes mellitus without complications

== ENCOUNTER → 2017-10-10 | Outpatient (CLI) | payer MEDICARE | END | disposition home or self-care (01) | LOC: RAD 13:33 | DX: J44.9 Chronic obstructive pulmonary disease, unspecified (principal); Z95.1 Presence of aortocoronary bypass graft ==

== ENCOUNTER 2017-11-02 01:11 | Emergency (ER) | payer MEDICARE ==
[~2017-11-02] VITALS: Ht 182.8 cm; Wt 122.5 kg
[2017-11-02 01:32] LABS: BASO # 0.1 10*3/uL (0.0-0.1); BASO % 1.2 % (0.0-1.0); EOS # 0.1 10*3/uL (0.0-0.4); EOS % 1.5 % (1.0-4.0); HEMATOCRIT 38.5 % (42.0-52.0); HEMOGLOBIN 13.2 g/dl (14.0-18.0); LYMPH # 1.9 10*3/uL (1.3-4.4); LYMPH % 26.3 % (27.0-41.0); MEAN CELL VOLUME 92.5 fl (80.0-94.0); MEAN CORPUSCULAR HGB 31.7 pg (27.0-31.0); MEAN CORPUSCULAR HGB CONC 34.3 g/dl (33.0-37.0); MEAN PLATELET VOLUME 10.9 fl (9.6-12.3); MONO # 0.6 10*3/uL (0.1-1.0); MONO % 7.7 % (3.0-9.0); NEUT # 4.6 10*3/uL (2.3-7.9); PLATELET COUNT AUTOMATED 176 10*3/uL (130-400); RED BLOOD COUNT 4.16 10*6/uL (4.50-5.90); RED CELL DISTRI WIDTH 14.1 % (0-14.5); WHITE BLOOD COUNT 7.3 10*3/uL (4.8-10.8)
[2017-11-02 01:56] LABS: ACT PARTIAL THROMBO TIME 22.9 SECONDS (20.8-31.5); INTERNATIONAL NORM RATIO 0.9 (2.0-3.5)
[2017-11-02 01:59] LABS: ALBUMIN 4.1 gm/dl (3.1-4.5); ALKALINE PHOSPHATASE 75 U/L (45-117); BUN 18 mg/dl (7-24); CHLORIDE 108 mmol/L (98-107); CREATININE 1.27 mg/dL (0.70-1.30); LIPASE 146 U/L (73-393); SGOT/AST 21 IU/L (3-35); SGPT/ALT 39 U/L (12-78); SODIUM 145 mmol/L (136-145); TOTAL PROTEIN 7.1 gm/dL (6.4-8.2)
[2017-11-02 02:01] LABS: TROPONIN I < 0.015 ng/ml (<0.045)
[2017-11-02 02:10] LABS: DIGOXIN 0.71 ng/ml (0.8-2.0)
== END 2017-11-02 03:33 | disposition home or self-care (01) ==
LOC: ED 01:11
PROVIDERS: Student in an Organized Health Care Education/Training Program
DX: R10.13 Epigastric pain (principal); F17.200 Nicotine dependence, unspecified, uncomplicated; I48.91 Unspecified atrial fibrillation; I25.10 Atherosclerotic heart disease of native coronary artery without angina pectoris; I11.0 Hypertensive heart disease with heart failure; I50.9 Heart failure, unspecified; J44.9 Chronic obstructive pulmonary disease, unspecified; E11.9 Type 2 diabetes mellitus without complications; K21.9 Gastro-esophageal reflux disease without esophagitis; E66.9 Obesity, unspecified; E78.5 Hyperlipidemia, unspecified; Z90.49 Acquired absence of other specified parts of digestive tract; Z98.890 Other specified postprocedural states; Z95.5 Presence of coronary angioplasty implant and graft; Z79.82 Long term (current) use of aspirin; Z79.899 Other long term (current) drug therapy; Z79.4 Long term (current) use of insulin; Z88.6 Allergy status to analgesic agent; Z88.5 Allergy status to narcotic agent; Z88.3 Allergy status to other anti-infective agents

== ENCOUNTER 2017-12-09 20:14 | Emergency (ER) | payer MEDICARE ==
[~2017-12-09] VITALS: Ht 187.9 cm; Wt 123.8 kg
[~2017-12-09 20:14] MED LIST changes: +LEVEMIR100 UNIT/1 SQ
[2017-12-09] MEDS ORDERED: VICODIN 5-3001 EACH PO (23:41)
== END 2017-12-10 01:15 | disposition home or self-care (01) ==
LOC: ED 20:14
DX: S96.811A Strain of other specified muscles and tendons at ankle and foot level, right foot, initial encounter (principal); S76.011A Strain of muscle, fascia and tendon of right hip, initial encounter; S20.211A Contusion of right front wall of thorax, initial encounter; F17.200 Nicotine dependence, unspecified, uncomplicated; I48.91 Unspecified atrial fibrillation; I25.10 Atherosclerotic heart disease of native coronary artery without angina pectoris; I11.0 Hypertensive heart disease with heart failure; I50.9 Heart failure, unspecified; E11.9 Type 2 diabetes mellitus without complications; K21.9 Gastro-esophageal reflux disease without esophagitis; E78.5 Hyperlipidemia, unspecified; E66.9 Obesity, unspecified; Z98.890 Other specified postprocedural states; Z90.49 Acquired absence of other specified parts of digestive tract; Z95.1 Presence of aortocoronary bypass graft; Z95.5 Presence of coronary angioplasty implant and graft; Z79.899 Other long term (current) drug therapy; Z88.5 Allergy status to narcotic agent; Z88.6 Allergy status to analgesic agent; Z79.4 Long term (current) use of insulin; Z79.82 Long term (current) use of aspirin; W01.0XXA Fall on same level from slipping, tripping and stumbling without subsequent striking against object, initial encounter; Y93.89 Activity, other specified; Y92.098 Other place in other non-institutional residence as the place of occurrence of the external cause; Y99.9 Unspecified external cause status

== ENCOUNTER 2017-12-15 08:24 | Emergency (ER) | payer MEDICARE ==
[~2017-12-15] VITALS: Ht 187.9 cm; Wt 124.7 kg
[~2017-12-15 08:24] MED LIST changes: +VICODIN 5-3001 EACH PO
[2017-12-15 09:00] LABS: BASO # 0.1 10*3/uL (0.0-0.1); BASO % 0.6 % (0.0-1.0); EOS # 0.1 10*3/uL (0.0-0.4); HEMATOCRIT 42.2 % (42.0-52.0); HEMOGLOBIN 14.5 g/dl (14.0-18.0); LYMPH # 1.3 10*3/uL (1.3-4.4); LYMPH % 13.5 % (27.0-41.0); MEAN CORPUSCULAR HGB 31.9 pg (27.0-31.0); MEAN CORPUSCULAR HGB CONC 34.4 g/dl (33.0-37.0); MEAN PLATELET VOLUME 10.5 fl (9.6-12.3); MONO # 0.5 10*3/uL (0.1-1.0); MONO % 5.6 % (3.0-9.0); NEUT # 7.4 10*3/uL (2.3-7.9); PLATELET COUNT AUTOMATED 157 10*3/uL (130-400); RED BLOOD COUNT 4.54 10*6/uL (4.50-5.90); RED CELL DISTRI WIDTH 13.4 % (0-14.5); WHITE BLOOD COUNT 9.3 10*3/uL (4.8-10.8)
[2017-12-15 09:09] LABS: ACT PARTIAL THROMBO TIME 22.9 SECONDS (20.8-31.5)
[2017-12-15 09:16] LABS: ALBUMIN 3.8 gm/dl (3.1-4.5); ALKALINE PHOSPHATASE 81 U/L (45-117); BUN 16 mg/dl (7-24); CHLORIDE 107 mmol/L (98-107); CREATININE 1.15 mg/dL (0.70-1.30); LIPASE 213 U/L (73-393); POTASSIUM 3.9 mmol/L (3.5-5.1); SGOT/AST 17 IU/L (3-35); SGPT/ALT 37 U/L (12-78); SODIUM 140 mmol/L (136-145)
[2017-12-15 09:18] LABS: TROPONIN I < 0.015 ng/ml (<0.045)
[2017-12-15 09:25] LABS: DIGOXIN 1.16 ng/ml (0.8-2.0)
[2017-12-15] MEDS ORDERED: DOXYCYCLINE100 M3 PO (15:24)
== END 2017-12-15 15:29 | disposition home or self-care (01) ==
LOC: ED 08:24
PROVIDERS: Emergency Medicine
DX: S16.1XXA Strain of muscle, fascia and tendon at neck level, initial encounter (principal); J02.9 Acute pharyngitis, unspecified; F17.200 Nicotine dependence, unspecified, uncomplicated; I48.91 Unspecified atrial fibrillation; I11.0 Hypertensive heart disease with heart failure; I50.9 Heart failure, unspecified; I25.10 Atherosclerotic heart disease of native coronary artery without angina pectoris; K21.9 Gastro-esophageal reflux disease without esophagitis; E78.5 Hyperlipidemia, unspecified; E11.9 Type 2 diabetes mellitus without complications; J44.9 Chronic obstructive pulmonary disease, unspecified; Z79.4 Long term (current) use of insulin; Z79.899 Other long term (current) drug therapy; Z79.82 Long term (current) use of aspirin; Z88.6 Allergy status to analgesic agent; Z88.5 Allergy status to narcotic agent; Z88.8 Allergy status to other drugs, medicaments and biological substances; Z90.49 Acquired absence of other specified parts of digestive tract; Z95.1 Presence of aortocoronary bypass graft; Z95.5 Presence of coronary angioplasty implant and graft; W01.0XXA Fall on same level from slipping, tripping and stumbling without subsequent striking against object, initial encounter; Y93.89 Activity, other specified; Y92.89 Other specified places as the place of occurrence of the external cause; Y99.9 Unspecified external cause status

== ENCOUNTER 2017-12-17 11:29 | Emergency (ER) | payer MEDICARE ==
[~2017-12-17] VITALS: Ht 187.9 cm; Wt 123.8 kg
[2017-12-17] MEDS ORDERED: CORTISPORIN SUS10 ML OT (11:51)
[2018-01-28] MEDS ORDERED: PREDNISONE10 MG PO (09:46)
[2018-01-28] MEDS ORDERED: LEVAQUIN500 M2 PO (09:46)
== END 2017-12-17 12:01 | disposition home or self-care (01) ==
LOC: ED 11:29
DX: S00.412A Abrasion of left ear, initial encounter (principal); Z88.6 Allergy status to analgesic agent; Z88.8 Allergy status to other drugs, medicaments and biological substances; Z79.899 Other long term (current) drug therapy; Z79.82 Long term (current) use of aspirin; X58.XXXA Exposure to other specified factors, initial encounter; Y93.89 Activity, other specified; Y92.89 Other specified places as the place of occurrence of the external cause; Y99.8 Other external cause status

== ENCOUNTER 2017-12-24 07:47 | Inpatient (IN) | payer MEDICARE ==
[2017-12-24] VITALS (8 sets, daily range): BP systolic 110–142; BP diastolic 64–94
[~2017-12-24] VITALS: Ht 187.9 cm; Wt 126.7 kg
[~2017-12-24 07:47] MED LIST changes: +CORTISPORIN SUS10 ML OT
[2017-12-24 08:16] LABS: BASO # 0.1 10*3/uL (0.0-0.1); BASO % 0.8 % (0.0-1.0); EOS # 0.1 10*3/uL (0.0-0.4); EOS % 1.2 % (1.0-4.0); HEMATOCRIT 40.4 % (42.0-52.0); LYMPH # 1.9 10*3/uL (1.3-4.4); LYMPH % 20.6 % (27.0-41.0); MEAN CELL VOLUME 98.3 fl (80.0-94.0); MEAN CORPUSCULAR HGB 31.6 pg (27.0-31.0); MEAN CORPUSCULAR HGB CONC 32.2 g/dl (33.0-37.0); MEAN PLATELET VOLUME 10.2 fl (9.6-12.3); MONO # 0.6 10*3/uL (0.1-1.0); MONO % 6.6 % (3.0-9.0); NEUT # 6.6 10*3/uL (2.3-7.9); NEUT % 70.3 % (47.0-73.0); PLATELET COUNT AUTOMATED 133 10*3/uL (130-400); RED BLOOD COUNT 4.11 10*6/uL (4.50-5.90); RED CELL DISTRI WIDTH 13.2 % (0-14.5); WHITE BLOOD COUNT 9.3 10*3/uL (4.8-10.8)
[2017-12-24 08:36] LABS: ALBUMIN 3.4 gm/dl (3.1-4.5); ALKALINE PHOSPHATASE 60 U/L (45-117); BUN 25 mg/dl (7-24); CHLORIDE 112 mmol/L (98-107); POTASSIUM 3.7 mmol/L (3.5-5.1); SGOT/AST 11 IU/L (3-35); SGPT/ALT 29 U/L (12-78); SODIUM 149 mmol/L (136-145); TOTAL PROTEIN 6.2 gm/dL (6.4-8.2); TROPONIN I 0.019 ng/ml (<0.045)
[2017-12-24] MEDS ORDERED: ZETIA10 MG PO (11:47)
[2017-12-24] MEDS ORDERED: PREDNISONE10 M1 PO (12:00)
[2017-12-24] MEDS ORDERED: DOXYCYCLINE100 M3 PO (12:01)
[2017-12-25] VITALS: BP 147/88
[2017-12-25 02:12] LABS: ABG HCO3 27.7 mmol/l (22-26); ABG O2 SATURATION 98.6 % (95-97); ARTERIAL BLOOD GAS PCO2 53.8 mmHg (35-45); ARTERIAL BLOOD GAS PH 7.329 (7.35-7.45)
[2017-12-25 06:40] LABS: BASO # 0.1 10*3/uL (0.0-0.1); BASO % 0.5 % (0.0-1.0); EOS # 0.1 10*3/uL (0.0-0.4); EOS % 0.9 % (1.0-4.0); HEMATOCRIT 42.3 % (42.0-52.0); HEMOGLOBIN 13.9 g/dl (14.0-18.0); LYMPH # 1.4 10*3/uL (1.3-4.4); LYMPH % 12.9 % (27.0-41.0); MEAN CELL VOLUME 95.9 fl (80.0-94.0); MEAN CORPUSCULAR HGB 31.5 pg (27.0-31.0); MEAN CORPUSCULAR HGB CONC 32.9 g/dl (33.0-37.0); MEAN PLATELET VOLUME 10.6 fl (9.6-12.3); MONO # 0.7 10*3/uL (0.1-1.0); MONO % 6.3 % (3.0-9.0); NEUT # 8.3 10*3/uL (2.3-7.9); NEUT % 78.9 % (47.0-73.0); PLATELET COUNT AUTOMATED 146 10*3/uL (130-400); RED BLOOD COUNT 4.41 10*6/uL (4.50-5.90); RED CELL DISTRI WIDTH 13.3 % (0-14.5); WHITE BLOOD COUNT 10.5 10*3/uL (4.8-10.8)
[2017-12-25 06:58] LABS: ALBUMIN 3.5 gm/dl (3.1-4.5); ALKALINE PHOSPHATASE 71 U/L (45-117); BUN 22 mg/dl (7-24); CHLORIDE 106 mmol/L (98-107); CHOLESTEROL 83 mg/dL (<200); CREATININE 0.96 mg/dL (0.70-1.30); FREE T4 1.14 ng/dl (0.76-1.46); HDL CHOLESTEROL 29 mg/dl (40-60); LDL CHOLESTEROL 33 mg/dL (9-159); PHOSPHOROUS 3.2 mg/dL (2.5-4.9); POTASSIUM 3.4 mmol/L (3.5-5.1); SGOT/AST 11 IU/L (3-35); SGPT/ALT 31 U/L (12-78); SODIUM 144 mmol/L (136-145); TOTAL PROTEIN 6.4 gm/dL (6.4-8.2); TRIGLYCERIDES 103 mg/dl (<150); VLDL CHOLESTEROL 21 mg/dL (6-40)
[2017-12-25 07:06] LABS: ACT PARTIAL THROMBO TIME 21.6 SECONDS (20.8-31.5)
[2017-12-25 08:00] VITALS: BP 128/82
[2017-12-25 08:02] LABS: VITAMIN D, 25-HYDROXY 16.9 ng/mL (30-100)
[2017-12-25 12:00] VITALS: BP 104/54
[2017-12-25 16:00] VITALS: BP 117/82
[2018-01-28] MEDS ORDERED: PREDNISONE10 MG PO (09:46)
[2018-01-28] MEDS ORDERED: LEVAQUIN500 M2 PO (09:46)
== END 2017-12-25 17:23 | disposition home or self-care (01) | DRG 190 ==
LOC: ED 07:47 → EDHOLD 09:52 → 4E 10:05
PROVIDERS: Emergency Medicine; Family Medicine; Internal Medicine
DX: J44.1 Chronic obstructive pulmonary disease with (acute) exacerbation (principal); I50.23 Acute on chronic systolic (congestive) heart failure; E87.0 Hyperosmolality and hypernatremia; E11.65 Type 2 diabetes mellitus with hyperglycemia; E87.8 Other disorders of electrolyte and fluid balance, not elsewhere classified; I11.0 Hypertensive heart disease with heart failure; I48.0 Paroxysmal atrial fibrillation; K21.9 Gastro-esophageal reflux disease without esophagitis; M19.90 Unspecified osteoarthritis, unspecified site; I25.10 Atherosclerotic heart disease of native coronary artery without angina pectoris; F41.9 Anxiety disorder, unspecified; F17.210 Nicotine dependence, cigarettes, uncomplicated; F32.9 Major depressive disorder, single episode, unspecified; E78.5 Hyperlipidemia, unspecified; E66.9 Obesity, unspecified; Z68.36 Body mass index [BMI] 36.0-36.9, adult; Z79.4 Long term (current) use of insulin; Z88.5 Allergy status to narcotic agent; Z88.8 Allergy status to other drugs, medicaments and biological substances; Z87.01 Personal history of pneumonia (recurrent); Z90.49 Acquired absence of other specified parts of digestive tract; Z95.1 Presence of aortocoronary bypass graft; Z95.5 Presence of coronary angioplasty implant and graft; Z82.49 Family history of ischemic heart disease and other diseases of the circulatory system; Z83.3 Family history of diabetes mellitus; I25.2 Old myocardial infarction; Z79.82 Long term (current) use of aspirin; Z79.899 Other long term (current) drug therapy; Z79.02 Long term (current) use of antithrombotics/antiplatelets; Z79.84 Long term (current) use of oral hypoglycemic drugs

== ENCOUNTER → 2018-01-17 | Outpatient (CLI) | payer MEDICARE ==
[~2018-01-17] MED LIST changes: +LEVAQUIN500 M2 PO; +PREDNISONE10 M1 PO; +ZETIA10 MG PO
== END | disposition home or self-care (01) ==
LOC: US 15:35
DX: I65.23 Occlusion and stenosis of bilateral carotid arteries (principal)

== ENCOUNTER → 2018-05-24 | Outpatient (CLI) | payer MEDICARE ==
[~2018-05-24] MED LIST changes: +CIPRO500 MG PO; +FERROUS SULFAT325 MG PO
== END | disposition home or self-care (01) ==
LOC: RAD 12:20
DX: J43.9 Emphysema, unspecified (principal); I11.0 Hypertensive heart disease with heart failure; I50.9 Heart failure, unspecified; E11.9 Type 2 diabetes mellitus without complications; I25.10 Atherosclerotic heart disease of native coronary artery without angina pectoris; F17.210 Nicotine dependence, cigarettes, uncomplicated; Z95.1 Presence of aortocoronary bypass graft

== ENCOUNTER → 2018-06-21 | Outpatient (CLI) | payer MEDICARE ==
[~2018-06-21] MED LIST changes: +BYDUREON P2 MG/0.65 SQ; +CLINDAMYCIN HC300 MG PO; +FEROSUL325 MG PO; +GLUCOPHAGE500 M1 PO; +HYDROCODONE-AC1 EAC2 PO; +JARDIANCE25 MG PO; +LOPID600 M1 PO; +SYMB160 INH; +VIBRAMYCIN100 MG PO; +VITAMIN D-32000 UNI1 PO
[2018-06-21 09:09] LABS: BILIRUBIN NEGATIVE (NEGATIVE); BLOOD NEGATIVE (NEGATIVE); CLARITY SL CLOUDY (CLEAR); COLOR YELLOW (YELLOW); GLUCOSE 3+ (NEGATIVE); KETONE NEGATIVE (NEGATIVE); LEUKO ESTERASE NEGATIVE (NEGATIVE); NITRITE NEGATIVE (NEGATIVE)
[2018-06-21 09:23] LABS: BACTERIA 3+
[2018-06-21 09:41] LABS: ALBUMIN 3.6 gm/dl (3.1-4.5); ALKALINE PHOSPHATASE 84 U/L (45-117); BILIRUBIN, DIRECT < 0.1 mg/dL (0.0-0.2); BUN 16 mg/dl (7-24); CHLORIDE 109 mmol/L (98-107); CHOLESTEROL 116 mg/dL (<200); CREATININE 1.11 mg/dL (0.70-1.30); FREE T4 1.07 ng/dl (0.76-1.46); HDL CHOLESTEROL 30 mg/dl (40-60); LDL CHOLESTEROL 51 mg/dL (9-159); POTASSIUM 4.2 mmol/L (3.5-5.1); SGOT/AST 45 IU/L (3-35); SGPT/ALT 62 U/L (12-78); SODIUM 144 mmol/L (136-145); TRIGLYCERIDES 177 mg/dl (<150); VLDL CHOLESTEROL 35 mg/dL (6-40)
[2018-06-21 10:11] LABS: VITAMIN D, 25-HYDROXY 27.4 ng/mL (30-100)
== END | disposition home or self-care (01) ==
LOC: LAB 08:36
PROVIDERS: Internal Medicine
DX: E11.40 Type 2 diabetes mellitus with diabetic neuropathy, unspecified (principal); E11.65 Type 2 diabetes mellitus with hyperglycemia; E04.9 Nontoxic goiter, unspecified; E78.5 Hyperlipidemia, unspecified; E55.9 Vitamin D deficiency, unspecified

== ENCOUNTER 2018-07-12 13:41 | Emergency (ER) | payer MEDICARE ==
[~2018-07-12] VITALS: Ht 187.9 cm; Wt 127.0 kg
--- NOTE | ~2018-07-12 | EKG ---
[place], [place] ELECTROCARDIOGRAM REPORT NAME: ARTI HAAS UNIT #: [id number] ROOM: DOCTOR: EPIPHANY DRAFT REPORT BIRTHDATE: [birth year] [facility] Test Date: 2018-07-12 Test Time: 14:33:01 Pat Name: ARTI HAAS Department: Room: ER/WY Gender: M [address] Reporter: 0012 : 1955 Requested By: DERRICK MONACO PA-C Order Number: [id number] Reading MD: Villa Montilla MD Measurements Intervals [place] Rate: 86 P: FL: QRS: 75 QRSD: 126 T: 91 QT: 348 QTc: 417 Interpretive Statements Atrial fibrillation Nonspecific intraventricular conduction delay Anteroseptal infarct, age indeterminate Minimal ST elevation, inferior leads Lateral leads are also involved Compared to ECG 03/14/2018 11:22:56 Intraventricular conduction delay now present Myocardial infarct finding now present ST (T wave) deviation now present Electronically Signed On 07-13-2018 11:25:21 PST by Villa Montilla MD CM:EKGRPT:ELECTROCARDIOGRAM REPORT [id number] 1125 DERRICK MONACO PA-C EPIPHANY DRAFT REPORT DERRICK MONACO PA-C
[~2018-07-12 13:41] MED LIST changes: -BYDUREON P2 MG/0.65 SQ; -CLINDAMYCIN HC300 MG PO; -FEROSUL325 MG PO; -HYDROCODONE-AC1 EAC2 PO; -JARDIANCE25 MG PO; -LOPID600 M1 PO; -SYMB160 INH; -VIBRAMYCIN100 MG PO; -VITAMIN D-32000 UNI1 PO
[2018-07-12 14:41] LABS: BASO # 0.1 10*3/uL (0.0-0.1); BASO % 0.8 % (0.0-1.0); EOS # 0.1 10*3/uL (0.0-0.4); EOS % 1.5 % (1.0-4.0); HEMATOCRIT 44.2 % (42.0-52.0); HEMOGLOBIN 15.2 g/dl (14.0-18.0); LYMPH # 1.1 10*3/uL (1.3-4.4); LYMPH % 12.4 % (27.0-41.0); MEAN CELL VOLUME 95.3 fl (80.0-94.0); MEAN CORPUSCULAR HGB 32.8 pg (27.0-31.0); MEAN CORPUSCULAR HGB CONC 34.4 g/dl (33.0-37.0); MEAN PLATELET VOLUME 10.3 fl (9.6-12.3); MONO # 0.8 10*3/uL (0.1-1.0); MONO % 9.7 % (3.0-9.0); NEUT # 6.4 10*3/uL (2.3-7.9); NEUT % 75.2 % (47.0-73.0); PLATELET COUNT AUTOMATED 183 10*3/uL (130-400); RED BLOOD COUNT 4.64 10*6/uL (4.50-5.90); RED CELL DISTRI WIDTH 13.1 % (0-14.5); WHITE BLOOD COUNT 8.5 10*3/uL (4.8-10.8)
[2018-07-12 14:53] LABS: INTERNATIONAL NORM RATIO 0.9 (2.0-3.5)
[2018-07-12 15:01] LABS: ALBUMIN 3.7 gm/dl (3.1-4.5); ALKALINE PHOSPHATASE 85 U/L (45-117); BUN 17 mg/dl (7-24); CHLORIDE 106 mmol/L (98-107); CREATININE 1.19 mg/dL (0.70-1.30); POTASSIUM 3.7 mmol/L (3.5-5.1); SGOT/AST 35 IU/L (3-35); SGPT/ALT 59 U/L (12-78); SODIUM 140 mmol/L (136-145); TOTAL PROTEIN 7.7 gm/dL (6.4-8.2)
[2018-07-12 15:03] LABS: TROPONIN I < 0.015 ng/ml (<0.045)
[2018-07-12] MEDS ORDERED: VIBRAMYCIN100 MG PO (15:46)
[2018-07-12] MEDS ORDERED: DELTASONE20 M1 PO (15:46)
== END 2018-07-12 16:09 | disposition home or self-care (01) ==
LOC: ED 13:41
PROVIDERS: Physician Assistant
DX: B34.9 Viral infection, unspecified (principal); R79.1 Abnormal coagulation profile; Z88.6 Allergy status to analgesic agent; Z88.8 Allergy status to other drugs, medicaments and biological substances; Z79.899 Other long term (current) drug therapy; Z79.82 Long term (current) use of aspirin

== ENCOUNTER 2018-08-30 08:33 | Inpatient (IN) | payer MEDICARE ==
[~2018-08-30] VITALS: Ht 182.8 cm; Wt 135.8 kg
--- NOTE | ~2018-08-30 | EKG ---
[place], [place] ELECTROCARDIOGRAM REPORT NAME: ARTI HAAS UNIT #: [id number] ROOM: 402 DOCTOR: LEANDER DRAFT REPORT BIRTHDATE: [birth year] [facility] Test Date: 2018-08-30 Test Time: 09:02:55 Pat Name: ARTI HAAS Department: Room: 402 Gender: M Special Agent: Mayra Ayala : 1955 Requested By: HUY MCFADDEN Order Number: [id number] Reading MD: Juvenal Falcon MD Measurements Intervals [place] Rate: 102 P: AR: QRS: 97 QRSD: 111 T: 47 QT: 457 QTc: 596 Interpretive Statements Atrial fibrillation Right axis deviation Low voltage, extremity leads Borderline ST depression, anterior leads Prolonged QT interval ST depression V1-V3, suggest recording posterior leads Baseline wander in lead(s) V1,V2 Compared to ECG 07/12/2018 14:33:01 Right-axis deviation now present Low QRS voltage now present Electronically Signed On 09-01-2018 9:53:21 PDT by Juvenal Falcon MD CM:EKGRPT:ELECTROCARDIOGRAM REPORT 1 [id number] HUY CEBALLOS DRAFT REPORT HUY MCFADDEN DO
[2018-08-30 08:33] VITALS: BP 115/84
[~2018-08-30 08:33] MED LIST changes: +VIBRAMYCIN100 MG PO
[2018-08-30 09:05] LABS: BASO # 0.1 10*3/uL (0.0-0.1); BASO % 0.6 % (0.0-1.0); EOS # 0.1 10*3/uL (0.0-0.4); EOS % 1.2 % (1.0-4.0); HEMATOCRIT 44.5 % (42.0-52.0); HEMOGLOBIN 14.7 g/dl (14.0-18.0); LYMPH # 1.1 10*3/uL (1.3-4.4); LYMPH % 9.4 % (27.0-41.0); MEAN CELL VOLUME 96.7 fl (80.0-94.0); MEAN PLATELET VOLUME 10.1 fl (9.6-12.3); MONO # 0.8 10*3/uL (0.1-1.0); MONO % 6.8 % (3.0-9.0); NEUT # 9.4 10*3/uL (2.3-7.9); NEUT % 81.4 % (47.0-73.0); PLATELET COUNT AUTOMATED 181 10*3/uL (130-400); RED CELL DISTRI WIDTH 13.6 % (0-14.5); WHITE BLOOD COUNT 11.5 10*3/uL (4.8-10.8)
[2018-08-30 09:14] LABS: ACT PARTIAL THROMBO TIME 23.9 SECONDS (20.8-31.5); INTERNATIONAL NORM RATIO 0.9 (2.0-3.5)
[2018-08-30 09:27] LABS: ALBUMIN 3.6 gm/dl (3.1-4.5); ALKALINE PHOSPHATASE 86 U/L (45-117); BUN 20 mg/dl (7-24); CHLORIDE 105 mmol/L (98-107); CREATININE 1.22 mg/dL (0.70-1.30); LIPASE 65 U/L (73-393); POTASSIUM 4.3 mmol/L (3.5-5.1); SGOT/AST 20 IU/L (3-35); SGPT/ALT 41 U/L (12-78); SODIUM 138 mmol/L (136-145); TOTAL PROTEIN 7.4 gm/dL (6.4-8.2)
[2018-08-30 09:34] LABS: TROPONIN I < 0.015 ng/ml (<0.045)
--- NOTE | 2018-08-30 10:33 | NUR ---
PT STATES TOOTH PAIN IS TOLERABLE, TORADOL EFFECTIVE.
[2018-08-30 10:34] VITALS: BP 124/76
[2018-08-30 12:05] VITALS: BP 118/82
[2018-08-30 12:07] VITALS: BP 144/85
--- NOTE | 2018-08-30 12:07 | NUR ---
A 63, admitted to 4E, under the services of QAMAR Marion DO with a diagnosis of FACIAL CELLULITIS, DENTAL ABSCESS. Chief complaint is ABSCESS. Patient arrived via ambulatory from ER. Monitor applied. Initial assessment completed. Vital signs taken and recorded. QAMAR MARION DO notified of admission to the unit. Orders received. See assessment for past medical history, medications and allergies. Patient and/or family oriented to unit. [facility] visitation policy reviewed. Clothing/patient valuable form completed. BURTON FOX
[2018-08-30] MEDS ORDERED: IBU800 MG PO (13:11)
--- NOTE | 2018-08-30 15:09 | NUR ---
DR BRO'S OFFICE AWARE OF CONSULT.
[2018-08-30] MEDS ORDERED: FEROSUL325 MG PO (15:10)
[2018-08-30] MEDS ORDERED: ZANTAC 150150 MG PO (15:12)
[2018-08-30] MEDS ORDERED: ZETIA10 MG PO (15:13)
[2018-08-30] MEDS ORDERED: LOPID600 M1 PO (15:15)
[2018-08-30] MEDS ORDERED: BYDUREON P2 MG/0.65 SQ (15:15)
[2018-08-30] MEDS ORDERED: VITAMIN D-32000 UNI1 PO (15:16)
[2018-08-30] MEDS ORDERED: JARDIANCE25 MG PO (15:16)
[2018-08-30] MEDS ORDERED: HYDROCODONE-AC1 EAC2 PO (15:18)
[2018-08-30] MEDS ORDERED: SYMB160 INH (15:20)
[2018-08-30 16:00] VITALS: BP 120/74
--- NOTE | 2018-08-30 17:51 | NUR ---
PATIENT RECEIVED PERCOCET FOR PAIN IN JAW RATED 8/10
[2018-08-30 20:00] VITALS: BP 136/78
--- NOTE | 2018-08-30 23:12 | NUR ---
RESPIRATORY AWARE OF PATIENT REQUESTING BREATHING TREATMENT. MALIKA RT STATES SHE IS SWAMPED IN THE ICU AT THIS TIME AND THEY ARE HER PRIORITY. PATIENT TACHYPNIC
--- NOTE | 2018-08-30 23:16 | NUR ---
PATIENT REQUESTING BREATHING TREATMENT. RESPIRATORY AWARE AND STATES THEY WILL BE UP WHEN THEY CAN.
--- NOTE | 2018-08-30 23:18 | NUR ---
PATIENT 02 SATS AT 92%. PLACED ON 2L NC
--- NOTE | 2018-08-30 23:33 | NUR ---
MEDICATED WITH PRN NORCO FOR C/O TOOTH PAIN. WILL MONITOR
--- NOTE | 2018-08-30 23:43 | NUR ---
DR GUZMAN AWARE OF PATIENT REQUESTING BREATHING TREATMENTS SOONER THAN THE ORDERED Q6.
[2018-08-31] VITALS: BP 147/97
--- NOTE | 2018-08-31 01:12 | NUR ---
24 HR chart check completed.
--- NOTE | 2018-08-31 02:58 | NUR ---
MEDICATED WITH PRN MOTRIN FOR C/O MOUTH PAIN RATED 8/10 ON A 0/10 PAIN SCALE
[2018-08-31 07:08] LABS: BASO # 0.1 10*3/uL (0.0-0.1); BASO % 0.6 % (0.0-1.0); EOS # 0.1 10*3/uL (0.0-0.4); EOS % 0.9 % (1.0-4.0); LYMPH # 1.1 10*3/uL (1.3-4.4); LYMPH % 13.3 % (27.0-41.0); MEAN CELL VOLUME 96.4 fl (80.0-94.0); MEAN CORPUSCULAR HGB 31.3 pg (27.0-31.0); MEAN CORPUSCULAR HGB CONC 32.5 g/dl (33.0-37.0); MEAN PLATELET VOLUME 9.8 fl (9.6-12.3); MONO # 0.7 10*3/uL (0.1-1.0); MONO % 8.6 % (3.0-9.0); NEUT # 6.2 10*3/uL (2.3-7.9); NEUT % 76.4 % (47.0-73.0); PLATELET COUNT AUTOMATED 150 10*3/uL (130-400); RED BLOOD COUNT 4.15 10*6/uL (4.50-5.90); RED CELL DISTRI WIDTH 13.4 % (0-14.5); WHITE BLOOD COUNT 8.1 10*3/uL (4.8-10.8)
[2018-08-31 07:43] LABS: BUN 20 mg/dl (7-24); CHLORIDE 109 mmol/L (98-107); CHOLESTEROL 92 mg/dL (<200); CREATININE 0.95 mg/dL (0.70-1.30); HDL CHOLESTEROL 29 mg/dl (40-60); LDL CHOLESTEROL 49 mg/dL (9-159); PHOSPHOROUS 2.5 mg/dL (2.5-4.9); SODIUM 140 mmol/L (136-145); TRIGLYCERIDES 71 mg/dl (<150); VLDL CHOLESTEROL 14 mg/dL (6-40)
[2018-08-31 07:50] LABS: THYROID STIM HORMONE (HS) 0.683 uIU/ml (0.358-4.75)
--- NOTE | 2018-08-31 09:00 | NUR ---
Clam Sorter in to talk to patient. Patient states lives at home with ex . There are few steps in the home. Physician: cory harper [facility] Home health services: none Patient's level of ADLs: INDEPENDENT Patient has working utilities: all working DME: nebulizer Follow-up physician's appointment after d/c: will be made by hospitalist nurse director upon discharge Does patient want to access PORTAL?: no Discharge plan discussed with patient, patient lives at home with ex , he states he is independent in adls and ambulation, patient drives, he states he will be going home when able and denies any home needs. KRAIG WILKS
[2018-08-31] MEDS ORDERED: ELIQUIS5 M1 PO (09:06)
[2018-08-31 09:26] LABS: VITAMIN D, 25-HYDROXY 34.9 ng/mL (30-100)
[2018-08-31 12:00] VITALS: BP 142/86
--- NOTE | 2018-08-31 15:43 | NUR ---
PATIENT HAS DECIDED TO PROCEED WITH THE PROCEDURE DUE TO FINANCIAL BURDEN OF THE PROCEDURE. PATIENT CONTINUES TO GET IV ANTIBIOTICS AND PAIN MANAGEMENT.
[2018-08-31 16:00] VITALS: BP 140/76
[2018-08-31 20:00] VITALS: BP 115/74
[2018-09-01] VITALS: BP 102/51
[2018-09-01 07:12] LABS: BASO # 0.1 10*3/uL (0.0-0.1); BASO % 1.1 % (0.0-1.0); EOS # 0.1 10*3/uL (0.0-0.4); EOS % 1.9 % (1.0-4.0); HEMATOCRIT 39.1 % (42.0-52.0); HEMOGLOBIN 12.5 g/dl (14.0-18.0); MEAN CELL VOLUME 97.8 fl (80.0-94.0); MEAN CORPUSCULAR HGB 31.3 pg (27.0-31.0); MEAN PLATELET VOLUME 10.2 fl (9.6-12.3); MONO # 0.5 10*3/uL (0.1-1.0); MONO % 8.6 % (3.0-9.0); NEUT # 4.1 10*3/uL (2.3-7.9); NEUT % 71.2 % (47.0-73.0); PLATELET COUNT AUTOMATED 141 10*3/uL (130-400); RED CELL DISTRI WIDTH 13.5 % (0-14.5); WHITE BLOOD COUNT 5.7 10*3/uL (4.8-10.8)
[2018-09-01 07:40] LABS: BUN 24 mg/dl (7-24); CHLORIDE 110 mmol/L (98-107); CREATININE 0.97 mg/dL (0.70-1.30); POTASSIUM 4.3 mmol/L (3.5-5.1); SODIUM 142 mmol/L (136-145)
[2018-09-01 08:00] VITALS: BP 106/66
--- NOTE | 2018-09-01 09:00 | NUR ---
case management visits with patient, patient states he will be going home when able and denies any home needs
[2018-09-01 12:00] VITALS: BP 122/79
[2018-09-01 16:00] VITALS: BP 136/91
--- NOTE | 2018-09-01 19:24 | NUR ---
24 HR CHART CHECK COMPLETE.
[2018-09-01 20:00] VITALS: BP 115/74
[2018-09-02] VITALS: BP 123/88
--- NOTE | 2018-09-02 06:30 | NUR ---
MADE AWARE OF PT'S STATUS. PT'S C/O SWELLING LEGS AND NOT GETTING LASIX. PT'S SLIGHT SOB. DUONEBS, DEEP BREATHING COUGHING, AND 02 2L INITIATED. ORDERS ARE TO MONITOR CLOSELY AT THIS TIME.
[2018-09-02 06:59] LABS: BASO # 0.1 10*3/uL (0.0-0.1); BASO % 0.7 % (0.0-1.0); EOS # 0.1 10*3/uL (0.0-0.4); EOS % 1.5 % (1.0-4.0); HEMATOCRIT 38.4 % (42.0-52.0); HEMOGLOBIN 12.2 g/dl (14.0-18.0); LYMPH # 0.6 10*3/uL (1.3-4.4); LYMPH % 8.4 % (27.0-41.0); MEAN CELL VOLUME 97.5 fl (80.0-94.0); MEAN CORPUSCULAR HGB CONC 31.8 g/dl (33.0-37.0); MEAN PLATELET VOLUME 10.1 fl (9.6-12.3); MONO # 0.5 10*3/uL (0.1-1.0); MONO % 7.3 % (3.0-9.0); NEUT # 5.6 10*3/uL (2.3-7.9); NEUT % 81.8 % (47.0-73.0); PLATELET COUNT AUTOMATED 144 10*3/uL (130-400); RED BLOOD COUNT 3.94 10*6/uL (4.50-5.90); RED CELL DISTRI WIDTH 13.3 % (0-14.5); WHITE BLOOD COUNT 6.8 10*3/uL (4.8-10.8)
[2018-09-02 07:26] LABS: BUN 20 mg/dl (7-24); CHLORIDE 111 mmol/L (98-107); CREATININE 0.84 mg/dL (0.70-1.30); SODIUM 140 mmol/L (136-145)
[2018-09-02 08:00] VITALS: BP 106/70
[2018-09-02 09:08] VITALS: BP 120/76
[2018-09-02] MEDS ORDERED: CLINDAMYCIN HC300 MG PO (09:31)
--- NOTE | 2018-09-02 11:26 | NUR ---
Discharge instructions reviewed with patient/family. Patient receptive and verbalizes understanding. Follow-up care arranged. Written instructions given to patient/family. WENT OVER DISCHARGE PACKET WITH PATIENT. IV REMOVED, PATIENT TOLERATED WELL. PATIENT AWARE OF NEW PRESCRIPTION AT PHARMACY AND OF FOLLOW UP APPOINTMENT WITH PCP. PATIENT DENIES ANY NEEDS OR CONCERNS. PATIENT ACCOMPANIED OFF FLOOR VIA WHEELCHAIR BY STAFF AND FAMILY AT THIS TIME. ADELIA VALENTINE
== END 2018-09-02 11:26 | disposition home or self-care (01) | DRG 872 ==
LOC: ED 08:33 → 4E 11:37 → EDHOLD 11:37 → 4E 11:47
PROVIDERS: Family Medicine; Internal Medicine; ADMIT Internal Medicine
DX: A41.9 Sepsis, unspecified organism (principal); L03.211 Cellulitis of face; I50.22 Chronic systolic (congestive) heart failure; K04.7 Periapical abscess without sinus; I48.0 Paroxysmal atrial fibrillation; K21.9 Gastro-esophageal reflux disease without esophagitis; F17.210 Nicotine dependence, cigarettes, uncomplicated; E66.01 Morbid (severe) obesity due to excess calories; J44.9 Chronic obstructive pulmonary disease, unspecified; M19.90 Unspecified osteoarthritis, unspecified site; E11.65 Type 2 diabetes mellitus with hyperglycemia; F32.9 Major depressive disorder, single episode, unspecified; E78.5 Hyperlipidemia, unspecified; I11.0 Hypertensive heart disease with heart failure; E55.9 Vitamin D deficiency, unspecified; F41.9 Anxiety disorder, unspecified; I25.10 Atherosclerotic heart disease of native coronary artery without angina pectoris; Z88.6 Allergy status to analgesic agent; Z88.8 Allergy status to other drugs, medicaments and biological substances; Z90.49 Acquired absence of other specified parts of digestive tract; Z95.1 Presence of aortocoronary bypass graft; Z82.49 Family history of ischemic heart disease and other diseases of the circulatory system; Z83.3 Family history of diabetes mellitus; Z79.4 Long term (current) use of insulin; Z79.899 Other long term (current) drug therapy; Z71.6 Tobacco abuse counseling; Z68.38 Body mass index [BMI] 38.0-38.9, adult

== ENCOUNTER → 2018-11-19 | Outpatient (CLI) | payer MEDICARE ==
[~2018-11-19] MED LIST changes: +ASPIRIN CHEWABL81 MG PO; +BYDUREON P2 MG/0.65 SQ; +CLINDAMYCIN HC300 MG PO; +FEROSUL325 MG PO; +HYDROCODONE-AC1 EAC2 PO; +JARDIANCE25 MG PO; +LISINOPRIL10 M1 PO; +LOPID600 M1 PO; +SYMB160 INH; +VITAMIN D-32000 UNI1 PO; +ZITHROMAX500 MG PO
[2018-11-19 14:02] LABS: ALBUMIN 4.2 gm/dl (3.1-4.5); ALKALINE PHOSPHATASE 86 U/L (45-117); BILIRUBIN, DIRECT 0.1 mg/dL (0.0-0.2); BUN 20 mg/dl (7-24); CHLORIDE 102 mmol/L (98-107); CHOLESTEROL 116 mg/dL (<200); CREATININE 1.37 mg/dL (0.70-1.30); HDL CHOLESTEROL 32 mg/dl (40-60); LDL CHOLESTEROL 59 mg/dL (9-159); POTASSIUM 4.2 mmol/L (3.5-5.1); SGOT/AST 35 IU/L (3-35); SGPT/ALT 44 U/L (12-78); SODIUM 137 mmol/L (136-145); TOTAL PROTEIN 7.7 gm/dL (6.4-8.2); TRIGLYCERIDES 125 mg/dl (<150); VLDL CHOLESTEROL 25 mg/dL (6-40)
[2018-11-19 14:12] LABS: BILIRUBIN NEGATIVE (NEGATIVE); BLOOD NEGATIVE (NEGATIVE); CLARITY CLEAR (CLEAR); COLOR YELLOW (YELLOW); GLUCOSE 3+ (NEGATIVE); KETONE NEGATIVE (NEGATIVE); LEUKO ESTERASE NEGATIVE (NEGATIVE); NITRITE NEGATIVE (NEGATIVE); UROBILINOGEN 0.2 E.U./dl (0.2-1.0)
== END | disposition home or self-care (01) ==
LOC: LAB 13:09
PROVIDERS: Internal Medicine
DX: E11.65 Type 2 diabetes mellitus with hyperglycemia (principal); E55.9 Vitamin D deficiency, unspecified; E78.5 Hyperlipidemia, unspecified

== ENCOUNTER 2019-01-17 19:54 | Emergency (ER) | payer MEDICARE, MEDICAID ==
[~2019-01-17] VITALS: Ht 182.8 cm; Wt 127.0 kg
--- NOTE | ~2019-01-17 | EKG ---
[place], [place] ELECTROCARDIOGRAM REPORT NAME: ARTI HAAS UNIT #: [id number] ROOM: DOCTOR: EPIPHANY DRAFT REPORT BIRTHDATE: [birth year] [facility] Test Date: 2019-01-17 Test Time: 23:02:58 Pat Name: ARTI HAAS Department: ER Room: Gender: M Food Consultant: Low Salazar : 1955 Requested By: CEM SORTO Order Number: [id number] Reading MD: Villa Montilla MD Measurements Intervals [place] Rate: 80 P: RI: QRS: 83 QRSD: 87 T: 62 QT: 394 QTc: 455 Interpretive Statements Atrial fibrillation Borderline right axis deviation Low voltage, extremity leads Probable anteroseptal infarct, old Minimal ST depression, anterolateral leads Compared to ECG 08/30/2018 09:02:55 Myocardial infarct finding now present Prolonged QT interval no longer present ST (T wave) deviation still present Electronically Signed On 01-18-2019 6:24:13 PDT by Villa Montlila MD CM:EKGRPT:ELECTROCARDIOGRAM REPORT [id number] 0624 CEM CEBALLOS DRAFT REPORT CEM SORTO DO
--- NOTE | ~2019-01-17 | EKG ---
[place], [place] ELECTROCARDIOGRAM REPORT NAME: ARTI HAAS UNIT #: [id number] ROOM: DOCTOR: EPIPHANY DRAFT REPORT BIRTHDATE: [birth year] [facility] Test Date: 2019-01-17 Test Time: 19:57:32 Pat Name: ARTI HAAS Department: ER Room: Gender: M Order Make Up Clerk: Low Salazar : 1955 Requested By: CEM SORTO Order Number: [id number] Reading MD: Villa Montilla MD Measurements Intervals [place] Rate: 90 P: MO: QRS: 78 QRSD: 96 T: 63 QT: 398 QTc: 487 Interpretive Statements Atrial fibrillation Low voltage, extremity and precordial leads Probable anteroseptal infarct, old Compared to ECG 08/30/2018 09:02:55 Myocardial infarct finding now present Right-axis deviation no longer present Prolonged QT interval no longer present ST (T wave) deviation no longer present Electronically Signed On 01-18-2019 6:23:22 PDT by Villa Montilla MD CM:EKGRPT:ELECTROCARDIOGRAM REPORT [id number] 0623 CEM CEBALLOS DRAFT REPORT CEM SORTO DO
[~2019-01-17 19:54] MED LIST changes: -ASPIRIN CHEWABL81 MG PO; -LISINOPRIL10 M1 PO; -ZITHROMAX500 MG PO
[2019-01-17 20:09] LABS: BASO # 0.1 10*3/uL (0.0-0.1); BASO % 1.5 % (0.0-1.0); EOS # 0.1 10*3/uL (0.0-0.4); EOS % 1.6 % (1.0-4.0); HEMATOCRIT 45.7 % (42.0-52.0); HEMOGLOBIN 14.9 g/dl (14.0-18.0); LYMPH # 1.4 10*3/uL (1.3-4.4); LYMPH % 18.7 % (27.0-41.0); MEAN CELL VOLUME 97.2 fl (80.0-94.0); MEAN CORPUSCULAR HGB 31.7 pg (27.0-31.0); MEAN CORPUSCULAR HGB CONC 32.6 g/dl (33.0-37.0); MEAN PLATELET VOLUME 10.4 fl (9.6-12.3); MONO # 0.6 10*3/uL (0.1-1.0); MONO % 8.1 % (3.0-9.0); NEUT # 5.1 10*3/uL (2.3-7.9); NEUT % 69.6 % (47.0-73.0); PLATELET COUNT AUTOMATED 176 10*3/uL (130-400); RED CELL DISTRI WIDTH 14.1 % (0-14.5); WHITE BLOOD COUNT 7.3 10*3/uL (4.8-10.8)
[2019-01-17 20:20] LABS: ACT PARTIAL THROMBO TIME 24.1 SECONDS (20.0-32.1); INTERNATIONAL NORM RATIO 0.9 (2.0-3.5)
[2019-01-17 20:25] LABS: ALBUMIN 4.3 gm/dl (3.1-4.5); ALKALINE PHOSPHATASE 54 U/L (45-117); BUN 23 mg/dl (7-24); CHLORIDE 108 mmol/L (98-107); SGOT/AST 41 IU/L (3-35); SGPT/ALT 52 U/L (12-78); SODIUM 141 mmol/L (136-145); TOTAL PROTEIN 7.7 gm/dL (6.4-8.2)
[2019-01-17 20:26] LABS: TROPONIN I < 0.015 ng/ml (<0.045)
[2019-01-17 21:54] LABS: ABG BASE EXCESS 4.7 mmol/L (-2.0-2.0); ABG HCO3 30.1 mmol/l (22-26); ABG O2 SATURATION 95.9 % (95-97); ARTERIAL BLOOD GAS PCO2 49.7 mmHg (35-45); ARTERIAL BLOOD GAS PH 7.399 (7.35-7.45); ARTERIAL BLOOD GAS PO2 74.8 mmHg (80-90)
== END 2019-01-18 02:03 | disposition home or self-care (01) ==
LOC: ED 19:54
PROVIDERS: Student in an Organized Health Care Education/Training Program
DX: J44.1 Chronic obstructive pulmonary disease with (acute) exacerbation (principal); M79.89 Other specified soft tissue disorders; I25.10 Atherosclerotic heart disease of native coronary artery without angina pectoris; E11.9 Type 2 diabetes mellitus without complications; E66.01 Morbid (severe) obesity due to excess calories; I48.0 Paroxysmal atrial fibrillation; K21.9 Gastro-esophageal reflux disease without esophagitis; I10 Essential (primary) hypertension; F17.210 Nicotine dependence, cigarettes, uncomplicated; Z88.8 Allergy status to other drugs, medicaments and biological substances; Z88.6 Allergy status to analgesic agent; Z79.899 Other long term (current) drug therapy

== ENCOUNTER 2019-02-19 05:08 | Inpatient (IN) | payer MEDICARE, MEDICAID ==
[2019-02-19] VITALS (8 sets, daily range): BP systolic 114–138; BP diastolic 58–92
[~2019-02-19] VITALS: Ht 182.9 cm; Wt 136.6 kg
--- NOTE | ~2019-02-19 | EKG ---
[place], [place] ELECTROCARDIOGRAM REPORT NAME: ARTI HAAS UNIT #: [id number] ROOM: 402 DOCTOR: LEANDER DRAFT REPORT BIRTHDATE: [birth year] [facility] Test Date: 2019-02-19 Test Time: 05:11:54 Pat Name: ARTI HAAS Department: Room: 402 Gender: M Die Sinker Apprentice: : 1955 Requested By: CEM SORTO Order Number: [id number] Reading MD: Villa Montilla MD Measurements Intervals [place] Rate: 89 P: NC: QRS: 196 QRSD: 121 T: 65 QT: 423 QTc: 515 Interpretive Statements Atrial fibrillation Ventricular premature complex Nonspecific intraventricular conduction delay Probable anteroseptal infarct, old Artifact in lead(s) I,II,aVR,aVL,aVF Compared to ECG 01/17/2019 23:02:58 Ventricular premature complex(es) now present Intraventricular conduction delay now present ST (T wave) deviation no longer present Myocardial infarct finding still present Electronically Signed On 02-20-2019 4:14:13 PDT by Villa Montilla MD CM:EKGRPT:ELECTROCARDIOGRAM REPORT [id number] 0414 CEM CEBALLOS DRAFT REPORT CEM SORTO DO
--- NOTE | ~2019-02-19 | CON ---
[place], [place] REPORT OF CONSULTATION NAME: ARTI HAAS [facility] #: [id number] UNIT #: [id number] ROOM: 402 DOCTOR: RAYRAY LEWISROD BIRTHDATE: [birth year] DOS: 02/20/2019 REASON FOR CONSULTATION: Known history of coronary artery disease, history of diastolic heart failure, and shortness of breath. HISTORY OF PRESENT ILLNESS: A 63-year-old gentleman with history of heavy tobacco abuse, COPD, continues to smoke, history of congestive heart failure, cardiomyopathy. The patient admitted with significant shortness of breath. Chest x-ray showed no acute pulmonary process. EKG showed atrial fibrillation, which is chronic. The patient was given IV diuretics and pO2 was noted to be 97%, ambulated and had some saturation down to 92% and he has been admitted multiple times with COPD exacerbation and exacerbation of congestive heart failure. As mentioned, compliance is a big issue and he continues to smoke. PAST MEDICAL HISTORY: Significant for coronary artery disease, severe COPD, cardiomyopathy, hypertension, paroxysmal atrial fibrillation, combined systolic, diastolic heart failure, tobacco abuse. PAST SURGICAL HISTORY: Tracheostomy, cholecystectomy, rotator cuff surgery, colonoscopy, and previous cardiac catheterization. SOCIAL HISTORY: Denies any alcohol abuse. Continues to smoke 54-pack per year. FAMILY HISTORY: Positive for coronary artery disease. ALLERGIES: MORPHINE, METHADONE. HOME MEDICATIONS: Apixaban, aspirin, clopidogrel, metformin and rosuvastatin. REVIEW OF SYSTEMS: CONSTITUTIONAL: No fever, no chills. HEENT: No visual disturbance or hearing problems. CARDIOVASCULAR: As per HPI. GASTROINTESTINAL: No nausea or vomiting. GENITOURINARY: No dysuria. Hemodynamically stable. PHYSICAL EXAMINATION: VITAL SIGNS: Blood pressure is 114/70. HEENT: Elevated JVD. LUNGS: Diminished air entry bilaterally. HEART: Sounds are irregularly irregular. ABDOMEN: Obese, soft, nontender. EXTREMITIES: About 2+ edema. NEUROLOGIC: Stable. LABORATORY DATA: Shows hemoglobin 15.1, hematocrit 47.9, white count of 12.9. Sodium 143, potassium 4.4, creatinine is 1.2. I's and O's negative 3640. Chest x-ray, no acute pulmonary abnormality. No obvious evidence of CHF. IMPRESSION: The patient with a history of diastolic combined systolic [place], [place] REPORT OF CONSULTATION NAME: ARTI HAAS UNIT #: [id number] ROOM: 402 DOCTOR: ROD SEO MD BIRTHDATE: [birth year] [id number] exacerbation of heart failure, severe chronic obstructive pulmonary disease exacerbation, history of tobacco abuse, coronary artery disease, cardiomyopathy, dyslipidemia, hypertension, and noncompliance. RECOMMENDATIONS: Continue the present medications. Importance of smoking cessation discussed with the patient. Continue with IV diuretics, strict I's and O's. Echocardiogram is ordered and I will follow up. ROD SEO MD CM:CONSTR:REPORT OF CONSULTATION 0730 02/20/19 1840 interface
--- NOTE | ~2019-02-19 | EKG ---
[place], [place] ELECTROCARDIOGRAM REPORT NAME: ARTI HAAS UNIT #: [id number] ROOM: 402 DOCTOR: LEANDER DRAFT REPORT BIRTHDATE: [birth year] [facility] Test Date: 2019-02-19 Test Time: 11:08:24 Pat Name: ARTI HAAS Department: Room: 402 Gender: M Chemist Physical: : 1955 Requested By: CEM SORTO Order Number: [id number] Reading MD: Villa Montilla MD Measurements Intervals [place] Rate: 86 P: OR: QRS: 94 QRSD: 95 T: 53 QT: 391 QTc: 468 Interpretive Statements Atrial fibrillation Anterior infarct, old Minimal ST depression, lateral leads Baseline wander in lead(s) V4 Compared to ECG 01/17/2019 23:02:58 No significant changes Electronically Signed On 02-20-2019 4:14:27 PDT by Villa Montilla MD CM:EKGRPT:ELECTROCARDIOGRAM REPORT [id number] 0414 CEM CEBALLOS DRAFT REPORT CEM SORTO DO
--- NOTE | ~2019-02-19 | PR ---
[place], [place] PROGRESS NOTE NAME: ARTI HAAS UNIT #: [id number] ROOM: 402 DOCTOR: DORIS ZAYSA MD BIRTHDATE: [birth year] DOS: 02/21/[address] Guy. SUBJECTIVE: The patient was admitted a few days ago when he is on IV loop diuretic and has been diuresing very well. He claims that his breathing has improved markedly since admission and he has been voiding a lot. No chest pain or palpitations, has not had any dizziness. His appetite is good. He has a cough with some expectoration of sputum. PHYSICAL EXAMINATION: VITAL SIGNS: Pulse is 80, blood pressure is 118/50. NECK: JVP is normal. AJR is negative today. EXTREMITIES: He has trace to 1+ edema (the legs with severely swollen when he was admitted. RESPIRATORY SYSTEM: He is mildly tachypneic and has oxygen on. Percussion reveals no abnormality. Auscultation reveals modestly reduced breath sounds on the left side, severely reduced breath sounds on the right side with lot of adventitious sounds on the right. Fluid balance has been -6 liters for the last 48 hours. Hemoglobin 15.1, BUN 36 up from 24 and creatinine 1.31 up from 1.28. IMPRESSION: 1. This patient has probably a combined systolic and diastolic heart failure (left ventricular ejection fraction of 40% that is improving rapidly with aggressive diuresis. 2. Severe chronic obstructive pulmonary disease with exacerbation because of infection. He is on antibiotics. RECOMMENDATIONS: I would continue with the current dose of loop diuretic for another day or so and monitor renal function. [place], [place] PROGRESS NOTE NAME: ARTI HAAS UNIT #: [id number] ROOM: 402 DOCTOR: DORIS ZAYAS MD BIRTHDATE: [birth year] DORIS ZAYAS MD CM:PNTRANS 1200 DORIS ZAYAS MD 02/22/19 0021 interface
--- NOTE | ~2019-02-19 | EKG ---
[place], [place] ELECTROCARDIOGRAM REPORT NAME: ARTI HAAS UNIT #: [id number] ROOM: 402 DOCTOR: LEANDER DRAFT REPORT BIRTHDATE: [birth year] [facility] Test Date: 2019-02-19 Test Time: 07:36:01 Pat Name: ARTI HAAS Department: Room: 402 Gender: M Electronics Processor: : 1955 Requested By: CEM SORTO Order Number: [id number] Reading MD: Villa Montilla MD Measurements Intervals [place] Rate: 88 P: [place]: QRS: 86 QRSD: 106 T: 70 QT: 387 QTc: 469 Interpretive Statements Atrial fibrillation Borderline right axis deviation Low voltage, extremity leads Borderline prolonged QT interval Compared to ECG 01/17/2019 23:02:58 Myocardial infarct finding no longer present ST (T wave) deviation no longer present Electronically Signed On 02-20-2019 4:14:18 PDT by Villa Montilla MD CM:EKGRPT:ELECTROCARDIOGRAM REPORT [id number] 0414 CEM CEBALLOS DRAFT REPORT CEM SORTO DO
[2019-02-19 05:41] LABS: BASO # 0.1 10*3/uL (0.0-0.1); EOS # 0.1 10*3/uL (0.0-0.4); EOS % 1.8 % (1.0-4.0); HEMATOCRIT 44.7 % (42.0-52.0); HEMOGLOBIN 14.2 g/dl (14.0-18.0); LYMPH # 1.1 10*3/uL (1.3-4.4); MEAN CELL VOLUME 100.2 fl (80.0-94.0); MEAN CORPUSCULAR HGB 31.8 pg (27.0-31.0); MEAN CORPUSCULAR HGB CONC 31.8 g/dl (33.0-37.0); MEAN PLATELET VOLUME 10.2 fl (9.6-12.3); MONO # 0.5 10*3/uL (0.1-1.0); MONO % 7.8 % (3.0-9.0); NEUT # 4.9 10*3/uL (2.3-7.9); NEUT % 73.1 % (47.0-73.0); PLATELET COUNT AUTOMATED 126 10*3/uL (130-400); RED BLOOD COUNT 4.46 10*6/uL (4.50-5.90); RED CELL DISTRI WIDTH 13.9 % (0-14.5); WHITE BLOOD COUNT 6.7 10*3/uL (4.8-10.8)
[2019-02-19 05:53] LABS: ACT PARTIAL THROMBO TIME 27.4 SECONDS (20.0-32.1); INTERNATIONAL NORM RATIO 0.9 (2.0-3.5)
[2019-02-19 05:59] LABS: ALBUMIN 3.7 gm/dl (3.1-4.5); ALKALINE PHOSPHATASE 58 U/L (45-117); BUN 17 mg/dl (7-24); CHLORIDE 113 mmol/L (98-107); CREATININE 1.25 mg/dL (0.70-1.30); POTASSIUM 4.1 mmol/L (3.5-5.1); SGOT/AST 24 IU/L (3-35); SGPT/ALT 54 U/L (12-78); SODIUM 145 mmol/L (136-145); TOTAL PROTEIN 6.7 gm/dL (6.4-8.2)
[2019-02-19 06:13] LABS: TROPONIN I < 0.015 ng/ml (<0.045)
[2019-02-19] MEDS ORDERED: ASPIRIN CHEWABL81 MG PO (10:01)
[2019-02-19] MEDS ORDERED: PROAIR HFA8.5 GM INH (10:13)
[2019-02-20] VITALS: BP 133/84
[2019-02-20 06:40] LABS: HEMATOCRIT 47.2 % (42.0-52.0); HEMOGLOBIN 15.1 g/dl (14.0-18.0); MEAN CELL VOLUME 99.6 fl (80.0-94.0); MEAN CORPUSCULAR HGB 31.9 pg (27.0-31.0); MEAN PLATELET VOLUME 10.9 fl (9.6-12.3); PLATELET COUNT AUTOMATED 163 10*3/uL (130-400); RED BLOOD COUNT 4.74 10*6/uL (4.50-5.90); RED CELL DISTRI WIDTH 13.6 % (0-14.5); WHITE BLOOD COUNT 12.9 10*3/uL (4.8-10.8)
[2019-02-20 07:14] LABS: ALBUMIN 3.7 gm/dl (3.1-4.5); BUN 24 mg/dl (7-24); CHLORIDE 111 mmol/L (98-107); CREATININE 1.28 mg/dL (0.70-1.30); PHOSPHOROUS 2.8 mg/dL (2.5-4.9); POTASSIUM 4.4 mmol/L (3.5-5.1); SODIUM 143 mmol/L (136-145)
[2019-02-20 07:20] LABS: TOTAL CELLS COUNTED 100 #CELLS
[2019-02-20 07:21] LABS: PLATELET SUFFICIENCY NORMAL (NORMAL)
[2019-02-20 07:23] LABS: POLYCHROMASIA SLIGHT
[2019-02-20 08:00] VITALS: BP 118/58; BP 119/58
[2019-02-20 12:00] VITALS: BP 120/68
[2019-02-20 16:00] VITALS: BP 120/68
[2019-02-20 20:00] VITALS: BP 143/67
[2019-02-21] VITALS: BP 116/62
[2019-02-21 06:57] LABS: CHLORIDE 110 mmol/L (98-107); POTASSIUM 4.1 mmol/L (3.5-5.1); SODIUM 142 mmol/L (136-145)
[2019-02-21 07:03] LABS: ALBUMIN 3.7 gm/dl (3.1-4.5); BUN 36 mg/dl (7-24); CREATININE 1.31 mg/dL (0.70-1.30); PHOSPHOROUS 2.8 mg/dL (2.5-4.9)
[2019-02-21 08:00] VITALS: BP 118/50
[2019-02-21] MEDS ORDERED: ZITHROMAX500 MG PO (09:25)
[2019-02-21] MEDS ORDERED: PREDNISONE10 MG PO (09:25)
[2019-02-21] MEDS ORDERED: LISINOPRIL10 M1 PO (09:25)
[2019-02-21 12:00] VITALS: BP 109/66
== END 2019-02-21 14:18 | disposition home or self-care (01) | DRG 871 ==
LOC: ED 05:08 → 4E 06:37 → EDHOLD 06:37 → 4E 06:51
PROVIDERS: Internal Medicine; Registered Nurse; Student in an Organized Health Care Education/Training Program; ADMIT Internal Medicine
DX: A41.9 Sepsis, unspecified organism (principal); J96.01 Acute respiratory failure with hypoxia; J18.9 Pneumonia, unspecified organism; I50.43 Acute on chronic combined systolic (congestive) and diastolic (congestive) heart failure; J44.1 Chronic obstructive pulmonary disease with (acute) exacerbation; E44.0 Moderate protein-calorie malnutrition; J44.0 Chronic obstructive pulmonary disease with (acute) lower respiratory infection; I42.9 Cardiomyopathy, unspecified; Z68.41 Body mass index [BMI] 40.0-44.9, adult; R65.20 Severe sepsis without septic shock; Z99.81 Dependence on supplemental oxygen; F41.9 Anxiety disorder, unspecified; F17.210 Nicotine dependence, cigarettes, uncomplicated; M19.90 Unspecified osteoarthritis, unspecified site; F32.9 Major depressive disorder, single episode, unspecified; E78.5 Hyperlipidemia, unspecified; K21.9 Gastro-esophageal reflux disease without esophagitis; I11.0 Hypertensive heart disease with heart failure; E66.01 Morbid (severe) obesity due to excess calories; I48.0 Paroxysmal atrial fibrillation; I25.119 Atherosclerotic heart disease of native coronary artery with unspecified angina pectoris; E11.65 Type 2 diabetes mellitus with hyperglycemia; E55.9 Vitamin D deficiency, unspecified; Z93.0 Tracheostomy status; Z95.1 Presence of aortocoronary bypass graft; Z90.49 Acquired absence of other specified parts of digestive tract; Z82.49 Family history of ischemic heart disease and other diseases of the circulatory system; Z88.8 Allergy status to other drugs, medicaments and biological substances; Z88.6 Allergy status to analgesic agent; Z79.899 Other long term (current) drug therapy; Z79.82 Long term (current) use of aspirin; Z79.4 Long term (current) use of insulin; Z79.84 Long term (current) use of oral hypoglycemic drugs; Z91.19 Patient's noncompliance with other medical treatment and regimen; Z95.5 Presence of coronary angioplasty implant and graft; Z83.3 Family history of diabetes mellitus

== ENCOUNTER → 2019-04-26 | Outpatient (CLI) | payer MEDICARE, MEDICAID ==
[~2019-04-26] MED LIST changes: +ASPIRIN CHEWABL81 MG PO; +LISINOPRIL10 M1 PO; +ZITHROMAX500 MG PO
[2019-04-26 10:39] LABS: BASO # 0.1 10*3/uL (0.0-0.1); BASO % 1.1 % (0.0-1.0); EOS # 0.1 10*3/uL (0.0-0.4); EOS % 1.6 % (1.0-4.0); HEMATOCRIT 49.5 % (42.0-52.0); HEMOGLOBIN 16.2 g/dl (14.0-18.0); LYMPH # 1.1 10*3/uL (1.3-4.4); LYMPH % 14.2 % (27.0-41.0); MEAN CELL VOLUME 97.1 fl (80.0-94.0); MEAN CORPUSCULAR HGB 31.8 pg (27.0-31.0); MEAN CORPUSCULAR HGB CONC 32.7 g/dl (33.0-37.0); MEAN PLATELET VOLUME 10.7 fl (9.6-12.3); MONO # 0.5 10*3/uL (0.1-1.0); NEUT # 5.7 10*3/uL (2.3-7.9); NEUT % 75.6 % (47.0-73.0); PLATELET COUNT AUTOMATED 172 10*3/uL (130-400); RED CELL DISTRI WIDTH 13.4 % (0-14.5); WHITE BLOOD COUNT 7.6 10*3/uL (4.8-10.8)
[2019-04-26 10:53] LABS: BILIRUBIN NEGATIVE (NEGATIVE); BLOOD NEGATIVE (NEGATIVE); CLARITY CLEAR (CLEAR); COLOR YELLOW (YELLOW); GLUCOSE 3+ (NEGATIVE); KETONE NEGATIVE (NEGATIVE); LEUKO ESTERASE NEGATIVE (NEGATIVE); NITRITE NEGATIVE (NEGATIVE); SPECIFIC GRAVITY 1.015 (1.005-1.030)
[2019-04-26 11:09] LABS: ALBUMIN 3.8 gm/dl (3.1-4.5); BUN 19 mg/dl (7-24); CHLORIDE 106 mmol/L (98-107); CREATININE 1.35 mg/dL (0.70-1.30); PHOSPHOROUS 3.1 mg/dL (2.5-4.9); POTASSIUM 3.6 mmol/L (3.5-5.1); SODIUM 140 mmol/L (136-145)
[2019-04-26 11:32] LABS: RBC 0-2 rbc/hpf (0-2); WBC 0-2 wbc/hpf (0-5)
[2019-04-26 11:45] LABS: PTH INTACT 112.5 pg/mL (18.5-88.0); VITAMIN D, 25-HYDROXY 24.5 ng/mL (30-100)
== END | disposition home or self-care (01) ==
LOC: LAB 10:04
PROVIDERS: Internal Medicine Nephrology
DX: N25.81 Secondary hyperparathyroidism of renal origin (principal); N18.2 Chronic kidney disease, stage 2 (mild); Z79.899 Other long term (current) drug therapy

== ENCOUNTER 2019-05-08 22:49 | Inpatient (IN) | payer MEDICARE, MEDICAID ==
[~2019-05-08] VITALS: Ht 188 cm; Wt 134.0 kg
[2019-05-08 22:58] VITALS: BP 92/48
[2019-05-08 23:13] LABS: BASO # 0.1 10*3/uL (0.0-0.1); BASO % 0.5 % (0.0-1.0); EOS # 0.1 10*3/uL (0.0-0.4); EOS % 0.5 % (1.0-4.0); HEMATOCRIT 48.6 % (42.0-52.0); HEMOGLOBIN 15.7 g/dl (14.0-18.0); LYMPH # 0.8 10*3/uL (1.3-4.4); MEAN CORPUSCULAR HGB 31.3 pg (27.0-31.0); MEAN CORPUSCULAR HGB CONC 32.3 g/dl (33.0-37.0); MEAN PLATELET VOLUME 10.2 fl (9.6-12.3); MONO # 0.7 10*3/uL (0.1-1.0); MONO % 6.9 % (3.0-9.0); NEUT # 9.2 10*3/uL (2.3-7.9); NEUT % 84.8 % (47.0-73.0); PLATELET COUNT AUTOMATED 168 10*3/uL (130-400); RED BLOOD COUNT 5.01 10*6/uL (4.50-5.90); RED CELL DISTRI WIDTH 13.2 % (0-14.5); WHITE BLOOD COUNT 10.8 10*3/uL (4.8-10.8)
--- NOTE | 2019-05-08 23:24 | NUR ---
Pt given a double breathing tx. No comps. SpO2 on 5L NC is 99%. Will dec to 3L NC as pt does not wear O2 at home.
[2019-05-08 23:26] LABS: ACT PARTIAL THROMBO TIME 28.5 SECONDS (20.0-32.1)
[2019-05-08 23:30] LABS: ALBUMIN 3.6 gm/dl (3.1-4.5); ALKALINE PHOSPHATASE 74 U/L (45-117); BUN 18 mg/dl (7-24); CHLORIDE 107 mmol/L (98-107); CREATININE 1.38 mg/dL (0.70-1.30); POTASSIUM 3.7 mmol/L (3.5-5.1); SGOT/AST 37 IU/L (3-35); SGPT/ALT 37 U/L (12-78); SODIUM 141 mmol/L (136-145); TOTAL PROTEIN 7.3 gm/dL (6.4-8.2)
[2019-05-08 23:33] LABS: TROPONIN I < 0.015 ng/ml (<0.045)
[2019-05-08 23:39] VITALS: BP 101/68
--- NOTE | 2019-05-08 23:40 | NUR ---
PATIENT NO COMPLAINTS AT THIS TIME. PATIENT VITALS WNL.
--- NOTE | 2019-05-09 00:20 | NUR ---
PT PLACED IN A GOWN, ALL BELONGINGS SECURED, PLACED IN PT BELONGING BAGS AND LABELED
[2019-05-09 00:25] VITALS: BP 100/53
[2019-05-09 01:30] VITALS: BP 141/67
--- NOTE | 2019-05-09 01:30 | NUR ---
A 64, admitted to 5E, under the services of HUY Berkowitz DO with a diagnosis of COPD,CHF,HYPOXIA. Chief complaint is FROM HOME SOB FOR COUPLE DAYS BUT GOTTEN WORSE. AUDIBLE WHEEZING.. Patient arrived via stretcher from ER. Monitor applied. Initial assessment completed. Vital signs taken and recorded. HUY BERKOWITZ DO notified of admission to the 5E unit. Orders received. See assessment for past medical history, medications and allergies. Patient and/or family oriented to unit. [facility] [[email or web address] visitation policy reviewed. Clothing/patient valuable form completed. MALLORY WHEATLEY
[2019-05-09] MEDS ORDERED: LISINOPRIL5 MG PO (03:09)
[2019-05-09] MEDS ORDERED: LANTUS SOL100 UNIT/1 SQ (03:17)
--- NOTE | 2019-05-09 03:23 | NUR ---
CALLED AND NOTIFIED DR. GOODMAN HOME MEDICATIONS ARE RECONCILLED.
--- NOTE | 2019-05-09 06:58 | NUR ---
CALLED DR. SEO ANSWERING SERVICE AND HE IS GOING TO CALL BACK.
--- NOTE | 2019-05-09 06:58 | NUR ---
DR REINOSO NOTIFIED OF CONSULT.
--- NOTE | 2019-05-09 07:03 | NUR ---
DR. SEO CALLED IN AND NOTIFIED OF CONSULT.
[2019-05-09 08:00] VITALS: BP 102/54
[2019-05-09 12:00] VITALS: BP 119/46
[2019-05-09 16:00] VITALS: BP 135/77
[2019-05-09 20:00] VITALS: BP 154/65
[2019-05-10] VITALS: BP 132/66
--- NOTE | 2019-05-10 02:24 | NUR ---
24 HR chart check completed.
--- NOTE | 2019-05-10 09:00 | NUR ---
Career Manager in to talk to patient. Patient states lives at home with ex . There are 3 steps in the home. Physician: Jackelyn Warren [facility] Home health services: none Patient's level of ADLs: INDEPENDENT Patient has working utilities: yes DME: nebulizer Follow-up physician's appointment after d/c: will be made by hospitalist nurse director upon discharge Does patient want to access PORTAL?: no Discharge plan discussed with patient. He lives at home with his ex-. He is independent in his ADLs and ambulation. Discussed home health care services and he denies any home needs at this time. When medically stable he will be discharged to home. He states someone will provide transportation on discharge. JOVITA SOTO
[2019-05-10 09:02] LABS: CREATININE 1.62 mg/dL (0.70-1.30); POTASSIUM 4.4 mmol/L (3.5-5.1)
--- NOTE | 2019-05-10 09:33 | NUR ---
pt c/o nausea and medicated with prn zofran at this time.
--- NOTE | 2019-05-10 11:55 | NUR ---
HOME O2 ASSESSMENT: PRE BP: 105/53, HR 80, RR 18, PULSE OX 89% ON ROOM AIR AT REST. AMBULATED PATIENT APPROX 10 FT, PULSE OX DECREASED TO 87% ON ROOM AIR WHILE AMBULATING. PATIENT VISIBLY SHORT OF BREATH. PLACED 3 L/M ON PATIENT, PULSE OX >91%-93% WHILE AMBULATING. POST BP: 103/69, HR 95, RR 20, PULSE OX 96% ON 3 L/M AT REST. RN AND HOSPITALIST RN NOTIFIED.
[2019-05-10 12:00] VITALS: BP 110/55
[2019-05-10 16:00] VITALS: BP 112/59
--- NOTE | 2019-05-10 19:26 | NUR ---
C/O "STOMACH ACHE" ZOFRAN GIVEN PER ORDER FOR PAIN. SEE MAR.
[2019-05-10 20:00] VITALS: BP 107/59
--- NOTE | 2019-05-10 20:46 | NUR ---
24 HR chart check completed.
[2019-05-11] VITALS: BP 137/62
--- NOTE | 2019-05-11 02:20 | NUR ---
ZOFRAN EFFECTIVE FOR UPSET STOMACHE PER PT.
--- NOTE | 2019-05-11 02:52 | NUR ---
UP TO BATHROOM. NO ACUTE DISTRESS NOTED.
[2019-05-11 06:45] LABS: HEMATOCRIT 47.1 % (42.0-52.0); HEMOGLOBIN 15.1 g/dl (14.0-18.0); MEAN CELL VOLUME 99.8 fl (80.0-94.0); MEAN CORPUSCULAR HGB CONC 32.1 g/dl (33.0-37.0); MEAN PLATELET VOLUME 10.6 fl (9.6-12.3); PLATELET COUNT AUTOMATED 184 10*3/uL (130-400); RED BLOOD COUNT 4.72 10*6/uL (4.50-5.90); WHITE BLOOD COUNT 14.2 10*3/uL (4.8-10.8)
[2019-05-11 07:04] LABS: BUN 48 mg/dl (7-24); CHLORIDE 105 mmol/L (98-107); CREATININE 1.35 mg/dL (0.70-1.30); PHOSPHOROUS 3.6 mg/dL (2.5-4.9); POTASSIUM 4.8 mmol/L (3.5-5.1); SODIUM 139 mmol/L (136-145)
[2019-05-11 08:00] VITALS: BP 104/51
--- NOTE | 2019-05-11 08:06 | NUR ---
Shift chart check completed.
--- NOTE | 2019-05-11 09:00 | NUR ---
Health And Safety Technician in to see patient. No new needs or request at this time. He denies any home needs. When medically stable he will be discharged to home. He is receiving IV Bumex, Zithromax, and Rocephin. Dr. Montilla and Dr. Tejeda are consult. He is a possible discharge today.
[2019-05-11 09:12] LABS: ATYPICAL LYMPHS 1 % (0-0); PLATELET SUFFICIENCY NORMAL (NORMAL); TOTAL CELLS COUNTED 100 #CELLS
[2019-05-11] MEDS ORDERED: PREDNISONE10 MG PO (11:49)
[2019-05-11] MEDS ORDERED: AVPAK AZITHROM250 MG PO (11:49)
[2019-05-11] MEDS ORDERED: MUCINEX1200 M1 PO (11:50)
[2019-05-11 12:00] VITALS: BP 128/59
--- NOTE | 2019-05-11 13:19 | NUR ---
Discharge instructions reviewed with patient. Patient receptive and verbalizes understanding. Follow-up care arranged. Written instructions given to patient. IV REMOVED, PT DISCHARGED WITH HOME OXYGEN TANK. DISHCARGED BY FREDERICK LOMAX
== END 2019-05-11 13:19 | disposition home or self-care (01) | DRG 871 ==
LOC: ED 22:49 → 5E 05-09 00:57 → EDHOLD 05-09 00:57 → 5E 05-09 01:03
PROVIDERS: Emergency Medicine; Internal Medicine; ADMIT Family Medicine
PROC: 0HBRXZZ Excision of Toe Nail, External Approach (ICD-10-PCS; principal; 2019-05-09)
DX: A41.9 Sepsis, unspecified organism (principal); J18.9 Pneumonia, unspecified organism; J96.01 Acute respiratory failure with hypoxia; I50.43 Acute on chronic combined systolic (congestive) and diastolic (congestive) heart failure; I25.700 Atherosclerosis of coronary artery bypass graft(s), unspecified, with unstable angina pectoris; E44.0 Moderate protein-calorie malnutrition; N17.9 Acute kidney failure, unspecified; I42.9 Cardiomyopathy, unspecified; R65.20 Severe sepsis without septic shock; L98.499 Non-pressure chronic ulcer of skin of other sites with unspecified severity; J43.2 Centrilobular emphysema; I48.0 Paroxysmal atrial fibrillation; K21.9 Gastro-esophageal reflux disease without esophagitis; E78.00 Pure hypercholesterolemia, unspecified; F41.1 Generalized anxiety disorder; G25.81 Restless legs syndrome; F32.9 Major depressive disorder, single episode, unspecified; E78.5 Hyperlipidemia, unspecified; J20.9 Acute bronchitis, unspecified; I50.82 Biventricular heart failure; R07.9 Chest pain, unspecified; B35.1 Tinea unguium; M19.90 Unspecified osteoarthritis, unspecified site; E55.9 Vitamin D deficiency, unspecified; I11.0 Hypertensive heart disease with heart failure; E66.01 Morbid (severe) obesity due to excess calories; F17.210 Nicotine dependence, cigarettes, uncomplicated; E11.65 Type 2 diabetes mellitus with hyperglycemia; Z79.4 Long term (current) use of insulin; Z71.6 Tobacco abuse counseling; Z88.4 Allergy status to anesthetic agent; Z88.5 Allergy status to narcotic agent; Z88.8 Allergy status to other drugs, medicaments and biological substances; Z90.49 Acquired absence of other specified parts of digestive tract; Z95.1 Presence of aortocoronary bypass graft; Z82.49 Family history of ischemic heart disease and other diseases of the circulatory system; Z83.3 Family history of diabetes mellitus; Z79.82 Long term (current) use of aspirin; Z79.899 Other long term (current) drug therapy; I25.2 Old myocardial infarction; Z68.38 Body mass index [BMI] 38.0-38.9, adult

== ENCOUNTER → 2019-05-22 | Outpatient (CLI) | payer MEDICARE, MEDICAID ==
[~2019-05-22] MED LIST changes: +AVPAK AZITHROM250 MG PO; +LANTUS SOL100 UNIT/1 SQ; +MUCINEX1200 M1 PO
--- NOTE | ~2019-05-22 | ST ---
[place], [place] EXERCISE STRESS TEST REPORT NAME: ARTI HAAS [facility] #: [id number] UNIT #: [id number] ROOM: DOCTOR: ROD SEO MD BIRTHDATE: [birth year] DOS: 05/22/2019 LEXISCAN PORTION OF THE LEXISCAN CARDIOLITE Baseline cardiogram, atrial fibrillation with a controlled ventricular response, 0.4 mg of Lexiscan, duration of 10 seconds. No EKG changes, suggestion of any acute ischemia. The patient did have significant shortness of breath, he is a heavy smoker and COPD. Blood pressure and heart rate response was normal. Nuclear images will be reported separately. ROD SEO MD CM:STRESS:EXERCISE STRESS TEST REPORT [id number] ROD SEO MD
--- NOTE | 2019-05-22 07:37 | NUR ---
INFORMED SIGNED CONSNET OBTAINED FOR LEXISCAN STRESS WITH DR SEO. RESTING EKG AFIB HR 77 BP 90/60. PULSE OX 96% LUNGS DIMINSHED WITH EX WHEEZE. PT COMPLETED ONE MINUTE OF A LEXISCAN PROTOCOL WITH PT RECEIVING LEXISCAN 0.4MG IV OVER 10 SECONDS. NO ARRHYTHMIAS OR ST CHANGES NOTED. PT C/O SOB WITH INJECTION POX REMAINS 94% LAST RECOVERY HR OF 97 BP 98/56. PT IN STABLE CONDITION, AWAITING NUCLEAR IMAGES.
== END | disposition home or self-care (01) ==
LOC: CARD 05-15 01:25
DX: I25.10 Atherosclerotic heart disease of native coronary artery without angina pectoris (principal); R06.02 Shortness of breath

== ENCOUNTER → 2019-06-08 | Outpatient (CLI) | payer MEDICARE, MEDICAID | END | disposition home or self-care (01) | LOC: RAD 10:18 | DX: M47.812 Spondylosis without myelopathy or radiculopathy, cervical region (principal); M19.012 Primary osteoarthritis, left shoulder; M19.011 Primary osteoarthritis, right shoulder ==

== ENCOUNTER 2019-07-12 19:25 | Inpatient (IN) | payer MEDICARE ==
[~2019-07-12] VITALS: Ht 279 cm; Wt 144.0 kg
[2019-07-12 19:29] VITALS: BP 121/69
[2019-07-12 19:46] LABS: BASO # 0.1 10*3/uL (0.0-0.1); BASO % 0.5 % (0.0-1.0); EOS # 0.1 10*3/uL (0.0-0.4); EOS % 0.8 % (1.0-4.0); HEMATOCRIT 50.2 % (42.0-52.0); LYMPH # 1.4 10*3/uL (1.3-4.4); LYMPH % 14.3 % (27.0-41.0); MEAN CELL VOLUME 98.8 fl (80.0-94.0); MEAN CORPUSCULAR HGB 31.5 pg (27.0-31.0); MEAN CORPUSCULAR HGB CONC 31.9 g/dl (33.0-37.0); MEAN PLATELET VOLUME 10.6 fl (9.6-12.3); MONO # 0.7 10*3/uL (0.1-1.0); NEUT # 7.5 10*3/uL (2.3-7.9); NEUT % 76.4 % (47.0-73.0); PLATELET COUNT AUTOMATED 203 10*3/uL (130-400); RED BLOOD COUNT 5.08 10*6/uL (4.50-5.90); RED CELL DISTRI WIDTH 13.4 % (0-14.5); WHITE BLOOD COUNT 9.8 10*3/uL (4.8-10.8)
[2019-07-12 19:57] LABS: ACT PARTIAL THROMBO TIME 23.6 SECONDS (20.0-32.1); INTERNATIONAL NORM RATIO 0.9 (2.0-3.5)
[2019-07-12 20:27] LABS: ALBUMIN 3.7 gm/dl (3.1-4.5); ALKALINE PHOSPHATASE 57 U/L (45-117); BUN 26 mg/dl (7-24); CHLORIDE 109 mmol/L (98-107); CREATININE 1.44 mg/dL (0.70-1.30); SGOT/AST 25 IU/L (3-35); SGPT/ALT 34 U/L (12-78); SODIUM 142 mmol/L (136-145); TOTAL PROTEIN 6.7 gm/dL (6.4-8.2)
[2019-07-12 20:42] VITALS: BP 95/45
[2019-07-12 20:43] LABS: TROPONIN I < 0.015 ng/ml (<0.045)
[2019-07-13 05:50] VITALS: BP 119/93
[2019-07-13 06:04] LABS: BUN 26 mg/dl (7-24); CHLORIDE 110 mmol/L (98-107); CREATININE 1.42 mg/dL (0.70-1.30); PHOSPHOROUS 2.8 mg/dL (2.5-4.9); POTASSIUM 4.3 mmol/L (3.5-5.1); SODIUM 140 mmol/L (136-145)
[2019-07-13 06:05] LABS: HEMATOCRIT 48.8 % (42.0-52.0); HEMOGLOBIN 15.6 g/dl (14.0-18.0); MEAN CELL VOLUME 98.4 fl (80.0-94.0); MEAN CORPUSCULAR HGB 31.5 pg (27.0-31.0); MEAN PLATELET VOLUME 10.6 fl (9.6-12.3); PLATELET COUNT AUTOMATED 170 10*3/uL (130-400); RED BLOOD COUNT 4.96 10*6/uL (4.50-5.90); RED CELL DISTRI WIDTH 13.2 % (0-14.5); WHITE BLOOD COUNT 8.4 10*3/uL (4.8-10.8)
[2019-07-13 06:27] LABS: BASOPHILS 1 % (0-1); PLATELET SUFFICIENCY NORMAL (NORMAL); POLYCHROMASIA SLIGHT; TOTAL CELLS COUNTED 100 #CELLS; TOXIC GRANULATION SLIGHT
[2019-07-13 08:00] VITALS: BP 138/88; BP 161/89
[2019-07-13 09:05] LABS: VITAMIN D, 25-HYDROXY 32.7 ng/mL (30-100)
[2019-07-13] MEDS ORDERED: FAMOTIDINE40 MG PO (11:47)
[2019-07-13] MEDS ORDERED: NEUPRO1 EAC1 TD (11:49)
[2019-07-13] MEDS ORDERED: TRELEGY ELLIPT1 EACH INH (11:49)
[2019-07-13 12:00] VITALS: BP 152/79
[2019-07-13 14:40] LABS: ABG BASE EXCESS -1.3 mmol/L (-2.0-2.0); ARTERIAL BLOOD GAS PH 7.362 (7.35-7.45)
[2019-07-13 16:00] VITALS: BP 148/72
[2019-07-13] MEDS ORDERED: SYMB160 INH (16:02)
[2019-07-13] MEDS ORDERED: HUMALOG 751 UNIT/0.0 SC (16:09)
[2019-07-13] MEDS ORDERED: FENOFIBRATE145 M1 PO (16:11)
[2019-07-13 20:00] VITALS: BP 128/56
[2019-07-14] VITALS: BP 126/69
[2019-07-14 08:00] VITALS: BP 118/56
[2019-07-14 12:00] VITALS: BP 122/62
[2019-07-14 16:00] VITALS: BP 118/44
[2019-07-14 20:00] VITALS: BP 126/64
[2019-07-15] VITALS: BP 134/75
[2019-07-15 07:32] LABS: HEMATOCRIT 48.6 % (42.0-52.0); HEMOGLOBIN 15.1 g/dl (14.0-18.0); MEAN CELL VOLUME 100.8 fl (80.0-94.0); MEAN CORPUSCULAR HGB 31.3 pg (27.0-31.0); MEAN CORPUSCULAR HGB CONC 31.1 g/dl (33.0-37.0); MEAN PLATELET VOLUME 10.9 fl (9.6-12.3); PLATELET COUNT AUTOMATED 180 10*3/uL (130-400); RED BLOOD COUNT 4.82 10*6/uL (4.50-5.90); RED CELL DISTRI WIDTH 13.3 % (0-14.5); WHITE BLOOD COUNT 14.8 10*3/uL (4.8-10.8)
[2019-07-15 07:50] LABS: BUN 29 mg/dl (7-24); CHLORIDE 107 mmol/L (98-107); CREATININE 1.41 mg/dL (0.70-1.30); POTASSIUM 4.7 mmol/L (3.5-5.1); SODIUM 142 mmol/L (136-145)
[2019-07-15 08:20] LABS: PLATELET SUFFICIENCY NORMAL (NORMAL); TOTAL CELLS COUNTED 100 #CELLS
[2019-07-15] MEDS ORDERED: LEVAQUIN500 M2 PO (08:52)
[2019-07-15] MEDS ORDERED: PREDNISONE10 MG PO (08:53)
[2019-07-15] MEDS ORDERED: ELIQUIS5 M1 PO (08:54)
== END 2019-07-15 10:20 | disposition home or self-care (01) | DRG 193 ==
LOC: ED 19:25 → EDHOLD 21:37 → 4E 21:37
PROVIDERS: Emergency Medicine; Internal Medicine; Internal Medicine Critical Care Medicine; Student in an Organized Health Care Education/Training Program; ADMIT Internal Medicine
PROC: 5A09357 Assistance with Respiratory Ventilation, Less than 24 Consecutive Hours, Continuous Positive Airway Pressure (ICD-10-PCS; principal; 2019-07-14)
DX: J18.9 Pneumonia, unspecified organism (principal); I50.23 Acute on chronic systolic (congestive) heart failure; I48.21 Permanent atrial fibrillation; Z68.1 Body mass index [BMI] 19.9 or less, adult; F17.210 Nicotine dependence, cigarettes, uncomplicated; E87.8 Other disorders of electrolyte and fluid balance, not elsewhere classified; I48.0 Paroxysmal atrial fibrillation; K21.9 Gastro-esophageal reflux disease without esophagitis; M19.90 Unspecified osteoarthritis, unspecified site; J20.9 Acute bronchitis, unspecified; J43.2 Centrilobular emphysema; E78.00 Pure hypercholesterolemia, unspecified; F41.1 Generalized anxiety disorder; I25.10 Atherosclerotic heart disease of native coronary artery without angina pectoris; I11.0 Hypertensive heart disease with heart failure; E66.01 Morbid (severe) obesity due to excess calories; I95.9 Hypotension, unspecified; F32.9 Major depressive disorder, single episode, unspecified; E78.5 Hyperlipidemia, unspecified; E11.69 Type 2 diabetes mellitus with other specified complication; Z71.6 Tobacco abuse counseling; Z79.4 Long term (current) use of insulin; Z88.6 Allergy status to analgesic agent; Z88.4 Allergy status to anesthetic agent; Z88.5 Allergy status to narcotic agent; Z87.01 Personal history of pneumonia (recurrent); Z90.49 Acquired absence of other specified parts of digestive tract; Z95.1 Presence of aortocoronary bypass graft; Z95.5 Presence of coronary angioplasty implant and graft; Z82.49 Family history of ischemic heart disease and other diseases of the circulatory system; Z83.3 Family history of diabetes mellitus; Z99.81 Dependence on supplemental oxygen; Z79.01 Long term (current) use of anticoagulants; Z79.899 Other long term (current) drug therapy; Z79.82 Long term (current) use of aspirin

== ENCOUNTER 2019-07-29 14:01 | Inpatient (IN) | payer MEDICARE ==
[~2019-07-29] VITALS: Ht 188 cm; Wt 136.2 kg
[~2019-07-29 14:01] MED LIST changes: +FAMOTIDINE40 MG PO; +FENOFIBRATE145 M1 PO; +HUMALOG 751 UNIT/0.0 SC; +NEUPRO1 EAC1 TD; +TRELEGY ELLIPT1 EACH INH
[2019-07-29 14:09] VITALS: BP 132/81
[2019-07-29 14:52] LABS: HEMATOCRIT 51.3 % (42.0-52.0); HEMOGLOBIN 16.5 g/dl (14.0-18.0); MEAN CELL VOLUME 97.7 fl (80.0-94.0); MEAN CORPUSCULAR HGB 31.4 pg (27.0-31.0); MEAN CORPUSCULAR HGB CONC 32.2 g/dl (33.0-37.0); MEAN PLATELET VOLUME 10.1 fl (9.6-12.3); PLATELET COUNT AUTOMATED 153 10*3/uL (130-400); RED BLOOD COUNT 5.25 10*6/uL (4.50-5.90); RED CELL DISTRI WIDTH 13.5 % (0-14.5); WHITE BLOOD COUNT 10.3 10*3/uL (4.8-10.8)
[2019-07-29 15:01] LABS: INTERNATIONAL NORM RATIO 0.9 (2.0-3.5)
[2019-07-29 15:09] LABS: ALBUMIN 3.7 gm/dl (3.1-4.5); ALKALINE PHOSPHATASE 50 U/L (45-117); BUN 20 mg/dl (7-24); CHLORIDE 107 mmol/L (98-107); CREATININE 1.39 mg/dL (0.70-1.30); LIPASE 104 U/L (73-393); POTASSIUM 3.9 mmol/L (3.5-5.1); SGOT/AST 20 IU/L (3-35); SGPT/ALT 34 U/L (12-78); SODIUM 143 mmol/L (136-145); TOTAL PROTEIN 6.7 gm/dL (6.4-8.2)
[2019-07-29 15:16] LABS: PLATELET SUFFICIENCY NORMAL (NORMAL); TOTAL CELLS COUNTED 100 #CELLS
[2019-07-29 15:18] LABS: TROPONIN I < 0.015 ng/ml (<0.045)
[2019-07-29 17:35] VITALS: BP 129/78
[2019-07-29] MEDS ORDERED: ALBUTEROL2.5 MG/0.5 INH (18:55)
[2019-07-29] MEDS ORDERED: AMIODARONE HYD200 MG PO (18:57)
[2019-07-29] MEDS ORDERED: COREG3.125 MG PO (18:59)
[2019-07-29] MEDS ORDERED: CRESTOR40 M1 PO (19:00)
[2019-07-29] MEDS ORDERED: LANTUS SOL100 UNIT/1 SQ (19:03)
[2019-07-29] MEDS ORDERED: LOPID600 M1 PO (19:06)
[2019-07-29] MEDS ORDERED: NOVOLOG100 UNIT/1 SQ (19:08)
[2019-07-29] MEDS ORDERED: PLAVIX75 M1 PO (19:10)
[2019-07-29] MEDS ORDERED: PROAIR HFA8.5 GM INH (19:11)
[2019-07-29 20:00] VITALS: BP 111/61
[2019-07-30] VITALS: BP 135/80
[2019-07-30 08:00] VITALS: BP 121/65
[2019-07-30 12:00] VITALS: BP 120/62
[2019-07-30] MEDS ORDERED: NEUPRO1 EAC1 TD (12:58)
[2019-07-30] MEDS ORDERED: PEPCID20 MG PO (12:59)
[2019-07-30] MEDS ORDERED: TRELEGY ELLIPT1 EACH INH (13:11)
[2019-07-30] MEDS ORDERED: FENOFIBRATE145 M1 PO (13:12)
[2019-07-30] MEDS ORDERED: HUMALOG 751 UNIT/0.0 SC (13:19)
[2019-07-30] MEDS ORDERED: NEURONTIN300 MG PO (13:25)
[2019-07-30] MEDS ORDERED: Humalog SQ (14:14)
[2019-07-30 16:00] VITALS: BP 115/67
== END 2019-07-30 15:55 | disposition home or self-care (01) | DRG 638 ==
LOC: ED 14:01 → EDHOLD 16:30 → 4E 16:54 → 5E 17:18
PROVIDERS: Physician Assistant; ADMIT Emergency Medicine
DX: E11.649 Type 2 diabetes mellitus with hypoglycemia without coma (principal); I25.810 Atherosclerosis of coronary artery bypass graft(s) without angina pectoris; I50.22 Chronic systolic (congestive) heart failure; E11.10 Type 2 diabetes mellitus with ketoacidosis without coma; I48.0 Paroxysmal atrial fibrillation; K21.9 Gastro-esophageal reflux disease without esophagitis; I11.0 Hypertensive heart disease with heart failure; E78.5 Hyperlipidemia, unspecified; J43.9 Emphysema, unspecified; M19.90 Unspecified osteoarthritis, unspecified site; F17.210 Nicotine dependence, cigarettes, uncomplicated; E83.41 Hypermagnesemia; F32.9 Major depressive disorder, single episode, unspecified; I25.10 Atherosclerotic heart disease of native coronary artery without angina pectoris; Z79.4 Long term (current) use of insulin; Z90.49 Acquired absence of other specified parts of digestive tract; Z93.0 Tracheostomy status; Z82.49 Family history of ischemic heart disease and other diseases of the circulatory system; Z88.5 Allergy status to narcotic agent; Z88.8 Allergy status to other drugs, medicaments and biological substances; Z79.82 Long term (current) use of aspirin; Z79.899 Other long term (current) drug therapy; Z71.6 Tobacco abuse counseling

== ENCOUNTER 2019-08-05 12:52 | Emergency (ER) | payer MEDICARE ==
[~2019-08-05] VITALS: Ht 187.9 cm; Wt 136.1 kg
[~2019-08-05 12:52] MED LIST changes: +ALBUTEROL2.5 MG/0.5 INH; +CRESTOR40 M1 PO; +Humalog SQ; +NOVOLOG100 UNIT/1 SQ; +PEPCID20 MG PO
[2019-08-05 16:10] LABS: BASO % 0.6 % (0.0-1.0); EOS # 0.1 10*3/uL (0.0-0.4); EOS % 1.1 % (1.0-4.0); HEMATOCRIT 48.7 % (42.0-52.0); LYMPH # 1.2 10*3/uL (1.3-4.4); LYMPH % 16.6 % (27.0-41.0); MEAN CELL VOLUME 96.1 fl (80.0-94.0); MEAN CORPUSCULAR HGB 31.6 pg (27.0-31.0); MEAN CORPUSCULAR HGB CONC 32.9 g/dl (33.0-37.0); MEAN PLATELET VOLUME 10.1 fl (9.6-12.3); MONO # 0.4 10*3/uL (0.1-1.0); MONO % 5.6 % (3.0-9.0); NEUT # 5.4 10*3/uL (2.3-7.9); NEUT % 75.7 % (47.0-73.0); PLATELET COUNT AUTOMATED 149 10*3/uL (130-400); RED BLOOD COUNT 5.07 10*6/uL (4.50-5.90); RED CELL DISTRI WIDTH 13.5 % (0-14.5); WHITE BLOOD COUNT 7.1 10*3/uL (4.8-10.8)
[2019-08-05 16:18] LABS: INTERNATIONAL NORM RATIO 0.9 (2.0-3.5)
[2019-08-05 16:27] LABS: ALBUMIN 3.8 gm/dl (3.1-4.5); ALKALINE PHOSPHATASE 50 U/L (45-117); BUN 19 mg/dl (7-24); CHLORIDE 109 mmol/L (98-107); CREATININE 1.27 mg/dL (0.70-1.30); POTASSIUM 3.7 mmol/L (3.5-5.1); SGOT/AST 29 IU/L (3-35); SGPT/ALT 40 U/L (12-78); SODIUM 142 mmol/L (136-145); TOTAL PROTEIN 6.7 gm/dL (6.4-8.2)
[2019-08-05 16:32] LABS: TROPONIN I < 0.015 ng/ml (<0.045)
== END 2019-08-05 17:26 | disposition home or self-care (01) ==
LOC: ED 12:52
PROVIDERS: Physician Assistant
DX: G89.29 Other chronic pain (principal); M25.512 Pain in left shoulder; M54.2 Cervicalgia; E11.649 Type 2 diabetes mellitus with hypoglycemia without coma; I25.2 Old myocardial infarction; I11.0 Hypertensive heart disease with heart failure; I50.9 Heart failure, unspecified; J44.9 Chronic obstructive pulmonary disease, unspecified; E78.00 Pure hypercholesterolemia, unspecified; F17.200 Nicotine dependence, unspecified, uncomplicated; Z88.8 Allergy status to other drugs, medicaments and biological substances; Z88.5 Allergy status to narcotic agent; Z79.4 Long term (current) use of insulin; Z79.82 Long term (current) use of aspirin; Z79.899 Other long term (current) drug therapy; Z90.49 Acquired absence of other specified parts of digestive tract; Z98.61 Coronary angioplasty status; Z87.442 Personal history of urinary calculi

== ENCOUNTER 2019-08-13 16:14 | Inpatient (IN) | payer MEDICARE ==
[~2019-08-13] VITALS: Ht 187.9 cm; Wt 134.7 kg
[2019-08-13 16:49] VITALS: BP 94/59
[2019-08-13 17:02] LABS: BASO % 0.4 % (0.0-1.0); EOS # 0.1 10*3/uL (0.0-0.4); EOS % 0.8 % (1.0-4.0); HEMATOCRIT 46.4 % (42.0-52.0); HEMOGLOBIN 15.1 g/dl (14.0-18.0); LYMPH # 0.7 10*3/uL (1.3-4.4); LYMPH % 8.8 % (27.0-41.0); MEAN CELL VOLUME 95.3 fl (80.0-94.0); MEAN CORPUSCULAR HGB CONC 32.5 g/dl (33.0-37.0); MEAN PLATELET VOLUME 10.4 fl (9.6-12.3); MONO # 0.5 10*3/uL (0.1-1.0); MONO % 6.4 % (3.0-9.0); NEUT # 6.5 10*3/uL (2.3-7.9); NEUT % 83.2 % (47.0-73.0); PLATELET COUNT AUTOMATED 187 10*3/uL (130-400); RED BLOOD COUNT 4.87 10*6/uL (4.50-5.90); RED CELL DISTRI WIDTH 13.4 % (0-14.5); WHITE BLOOD COUNT 7.8 10*3/uL (4.8-10.8)
[2019-08-13 17:16] LABS: ALBUMIN 3.8 gm/dl (3.1-4.5); BUN 17 mg/dl (7-24); CHLORIDE 107 mmol/L (98-107); POTASSIUM 3.8 mmol/L (3.5-5.1); SGOT/AST 20 IU/L (3-35); SGPT/ALT 29 U/L (12-78); SODIUM 141 mmol/L (136-145); TOTAL PROTEIN 7.4 gm/dL (6.4-8.2)
[2019-08-13 17:18] LABS: ACT PARTIAL THROMBO TIME 26.7 SECONDS (20.0-32.1); INTERNATIONAL NORM RATIO 0.9 (2.0-3.5)
[2019-08-13 17:19] LABS: ALKALINE PHOSPHATASE 61 U/L (45-117)
[2019-08-13 17:20] LABS: TROPONIN I < 0.015 ng/ml (<0.045)
[2019-08-13 18:30] VITALS: BP 118/80
[2019-08-13] MEDS ORDERED: SPIRIVA RESPIMAT4 GM INH (19:02)
[2019-08-13] MEDS ORDERED: HUMALOG 751 UNIT/0.0 SC (19:04)
[2019-08-13] MEDS ORDERED: BYDUREON P2 MG/0.65 SQ (19:05)
[2019-08-13 20:00] VITALS: BP 133/57
[2019-08-14] VITALS: BP 100/50; BP 82/40
[2019-08-14 07:03] LABS: BASO % 0.6 % (0.0-1.0); EOS # 0.1 10*3/uL (0.0-0.4); EOS % 0.9 % (1.0-4.0); HEMATOCRIT 45.4 % (42.0-52.0); HEMOGLOBIN 14.7 g/dl (14.0-18.0); LYMPH # 1.2 10*3/uL (1.3-4.4); LYMPH % 17.7 % (27.0-41.0); MEAN CELL VOLUME 95.2 fl (80.0-94.0); MEAN CORPUSCULAR HGB 30.8 pg (27.0-31.0); MEAN CORPUSCULAR HGB CONC 32.4 g/dl (33.0-37.0); MEAN PLATELET VOLUME 10.4 fl (9.6-12.3); MONO # 0.7 10*3/uL (0.1-1.0); MONO % 9.9 % (3.0-9.0); NEUT # 4.8 10*3/uL (2.3-7.9); NEUT % 70.5 % (47.0-73.0); PLATELET COUNT AUTOMATED 171 10*3/uL (130-400); RED BLOOD COUNT 4.77 10*6/uL (4.50-5.90); RED CELL DISTRI WIDTH 13.5 % (0-14.5); WHITE BLOOD COUNT 6.8 10*3/uL (4.8-10.8)
[2019-08-14 07:13] LABS: ACT PARTIAL THROMBO TIME 28.9 SECONDS (20.0-32.1); INTERNATIONAL NORM RATIO 0.9 (2.0-3.5)
[2019-08-14 07:23] LABS: ALBUMIN 3.5 gm/dl (3.1-4.5); CREATININE 1.62 mg/dL (0.70-1.30); PHOSPHOROUS 3.8 mg/dL (2.5-4.9); POTASSIUM 3.5 mmol/L (3.5-5.1)
[2019-08-14 07:25] LABS: TOTAL PROTEIN 6.9 gm/dL (6.4-8.2)
[2019-08-14 08:00] VITALS: BP 112/68
[2019-08-14 12:00] VITALS: BP 111/66
[2019-08-14 16:00] VITALS: BP 136/73
[2019-08-14 20:00] VITALS: BP 107/89
[2019-08-15] VITALS: BP 103/36
[2019-08-15 00:30] VITALS: BP 106/60
[2019-08-15 06:20] LABS: POTASSIUM 3.6 mmol/L (3.5-5.1)
[2019-08-15 06:22] LABS: CREATININE 1.58 mg/dL (0.70-1.30)
[2019-08-15 08:00] VITALS: BP 106/68
[2019-08-15 12:00] VITALS: BP 101/55
[2019-08-15] MEDS ORDERED: NEUPRO1 EAC1 TD (12:59)
[2019-08-15] MEDS ORDERED: FENOFIBRATE145 M1 PO (13:04)
[2019-08-15 16:00] VITALS: BP 114/63
[2019-08-15 20:00] VITALS: BP 124/76
[2019-08-16] VITALS: BP 107/70
[2019-08-16 06:08] LABS: CREATININE 1.47 mg/dL (0.70-1.30); POTASSIUM 3.3 mmol/L (3.5-5.1)
[2019-08-16 08:00] VITALS: BP 118/62
[2019-08-16 12:00] VITALS: BP 123/73
[2019-08-16 16:00] VITALS: BP 101/74
[2019-08-16 20:00] VITALS: BP 107/61
[2019-08-17] VITALS: BP 111/77
[2019-08-17 06:46] LABS: BUN 22 mg/dl (7-24); CHLORIDE 105 mmol/L (98-107); CREATININE 1.39 mg/dL (0.70-1.30); POTASSIUM 3.9 mmol/L (3.5-5.1); SODIUM 140 mmol/L (136-145)
[2019-08-17 08:00] VITALS: BP 110/60
[2019-08-17] MEDS ORDERED: IMDUR SA30 MG PO (10:45)
[2019-08-17] MEDS ORDERED: LASIX20 MG PO (10:45)
[2019-08-17] MEDS ORDERED: LASIX40 MG PO ×2 (10:45→10:57)
== END 2019-08-17 12:10 | disposition home or self-care (01) | DRG 291 ==
LOC: ED 16:14 → EDHOLD 17:40 → 4E 17:40
PROVIDERS: Emergency Medicine; Family Medicine; Internal Medicine; ADMIT Internal Medicine
DX: I13.0 Hypertensive heart and chronic kidney disease with heart failure and stage 1 through stage 4 chronic kidney disease, or unspecified chronic kidney disease (principal); N17.0 Acute kidney failure with tubular necrosis; I50.43 Acute on chronic combined systolic (congestive) and diastolic (congestive) heart failure; I25.810 Atherosclerosis of coronary artery bypass graft(s) without angina pectoris; I48.0 Paroxysmal atrial fibrillation; H10.33 Unspecified acute conjunctivitis, bilateral; E83.41 Hypermagnesemia; M19.90 Unspecified osteoarthritis, unspecified site; K21.9 Gastro-esophageal reflux disease without esophagitis; F41.9 Anxiety disorder, unspecified; F32.9 Major depressive disorder, single episode, unspecified; E78.5 Hyperlipidemia, unspecified; J44.9 Chronic obstructive pulmonary disease, unspecified; E11.69 Type 2 diabetes mellitus with other specified complication; E11.22 Type 2 diabetes mellitus with diabetic chronic kidney disease; G89.29 Other chronic pain; E11.649 Type 2 diabetes mellitus with hypoglycemia without coma; F17.210 Nicotine dependence, cigarettes, uncomplicated; Z71.6 Tobacco abuse counseling; Z68.39 Body mass index [BMI] 39.0-39.9, adult; I25.2 Old myocardial infarction; Z79.82 Long term (current) use of aspirin; Z79.01 Long term (current) use of anticoagulants; Z79.899 Other long term (current) drug therapy; Z88.5 Allergy status to narcotic agent; Z88.8 Allergy status to other drugs, medicaments and biological substances; Z79.4 Long term (current) use of insulin; Z90.49 Acquired absence of other specified parts of digestive tract; Z93.0 Tracheostomy status

== ENCOUNTER 2019-08-30 11:12 | Inpatient (IN) | payer MEDICARE ==
[2019-08-30] VITALS (7 sets, daily range): BP systolic 96–136; BP diastolic 44–70
[~2019-08-30] VITALS: Ht 187.9 cm; Wt 133.8 kg
[~2019-08-30 11:12] MED LIST changes: +IMDUR SA30 MG PO; +LASIX20 MG PO; +SPIRIVA RESPIMAT4 GM INH
--- NOTE | 2019-08-30 11:17 | NUR ---
ACS CALLED FOR ROOM 18
[2019-08-30 11:43] LABS: BASO # 0.1 10*3/uL (0.0-0.1); BASO % 0.5 % (0.0-1.0); EOS % 0.4 % (1.0-4.0); HEMATOCRIT 44.2 % (42.0-52.0); HEMOGLOBIN 14.3 g/dl (14.0-18.0); LYMPH # 0.8 10*3/uL (1.3-4.4); LYMPH % 7.6 % (27.0-41.0); MEAN CELL VOLUME 96.3 fl (80.0-94.0); MEAN CORPUSCULAR HGB 31.2 pg (27.0-31.0); MEAN CORPUSCULAR HGB CONC 32.4 g/dl (33.0-37.0); MEAN PLATELET VOLUME 10.3 fl (9.6-12.3); MONO # 0.5 10*3/uL (0.1-1.0); MONO % 4.9 % (3.0-9.0); NEUT # 8.6 10*3/uL (2.3-7.9); NEUT % 86.1 % (47.0-73.0); PLATELET COUNT AUTOMATED 198 10*3/uL (130-400); RED BLOOD COUNT 4.59 10*6/uL (4.50-5.90); RED CELL DISTRI WIDTH 13.8 % (0-14.5)
[2019-08-30 11:46] LABS: ACT PARTIAL THROMBO TIME 26.4 SECONDS (20.0-32.1); INTERNATIONAL NORM RATIO 0.9 (2.0-3.5)
[2019-08-30 11:53] LABS: ALBUMIN 3.6 gm/dl (3.1-4.5); BUN 15 mg/dl (7-24); CHLORIDE 107 mmol/L (98-107); POTASSIUM 3.3 mmol/L (3.5-5.1); SGOT/AST 25 IU/L (3-35); SGPT/ALT 33 U/L (12-78); SODIUM 140 mmol/L (136-145); TOTAL PROTEIN 6.9 gm/dL (6.4-8.2)
[2019-08-30 11:56] LABS: ALKALINE PHOSPHATASE 57 U/L (45-117); CREATININE 1.49 mg/dL (0.70-1.30)
[2019-08-30 12:01] LABS: TROPONIN I < 0.015 ng/ml (<0.045)
--- NOTE | 2019-08-30 12:12 | NUR ---
PT APPEARS MORE RELAXED AT THIS TIME. SEMI FOWLERS IN BE D WITH EYES CLOSED. RESP MORE RELAXED. SPOUSE AT BEDSIDE
--- NOTE | 2019-08-30 13:20 | NUR ---
A 64, admitted to , under the services of MALIKA Edward DO with a diagnosis of COPD, NAUSEA, FAITGUE, EDEMA SOB. Chief complaint is SOB. Patient arrived via bed from ER. Monitor applied. Initial assessment completed. Vital signs taken and recorded. MALIKA EDWARD DO notified of admission to the unit. Orders received. See assessment for past medical history, medications and allergies. Patient and/or family oriented to unit. [facility] Clothing/patient valuable form completed. SOUTH MURRAY
[2019-08-30] MEDS ORDERED: LASIX40 MG PO (13:56)
[2019-08-30] MEDS ORDERED: TRULICITY1.5 MG/0.5 SC (14:00)
[2019-08-30] MEDS ORDERED: IMDUR SA30 MG PO (14:04)
[2019-08-30] MEDS ORDERED: ROSUVASTATIN CA40 MG PO (14:05)
--- NOTE | 2019-08-30 14:21 | NUR ---
NOTIFIED OF CONSULT
[2019-08-30] MEDS ORDERED: HUMALOG100 UNIT/1 SC (15:10)
--- NOTE | 2019-08-30 19:00 | NUR ---
ASSUMED CARE FOR PT AT THIS TIME PATIENT COMPLAINS OPF SOME NECK PAIN. NO OTHER COMPLAINTS AT THIS TIME. RESPS EASY AND REGULAR. ASSESSMENT COMPLETE. CALL LIGHT WITHIN REACH. WILL CONTINUE TO MONITOR.
--- NOTE | 2019-08-30 20:50 | NUR ---
NOTIFIED PATIENTS POTASSIUM WAS 3.3 AND IT DOESN'T LOOK THE THE PT WAS SUPPLEMENTED. HAS POTASSIUM 20 MEQ THAT STARTS TOMORROW. PER SHE WILL PUT SOMETHING IN FOR NOW.
--- NOTE | 2019-08-30 23:00 | NUR ---
ASSUMED CARE FOR THIS PT AT THIS TIME. PT RESTING QUIETLY IN BED. NO C/O VOICED. CALL LIGHT IN REACH.
[2019-08-31] VITALS: BP 119/51
[2019-08-31 07:31] LABS: HEMATOCRIT 42.3 % (42.0-52.0); HEMOGLOBIN 13.5 g/dl (14.0-18.0); MEAN CELL VOLUME 98.4 fl (80.0-94.0); MEAN CORPUSCULAR HGB 31.4 pg (27.0-31.0); MEAN CORPUSCULAR HGB CONC 31.9 g/dl (33.0-37.0); PLATELET COUNT AUTOMATED 185 10*3/uL (130-400); WHITE BLOOD COUNT 5.6 10*3/uL (4.8-10.8)
[2019-08-31 07:50] LABS: CREATININE 1.45 mg/dL (0.70-1.30); POTASSIUM 4.2 mmol/L (3.5-5.1)
[2019-08-31 08:10] LABS: PLATELET SUFFICIENCY NORMAL (NORMAL); TOTAL CELLS COUNTED 100 #CELLS
--- NOTE | 2019-08-31 09:15 | NUR ---
Nursing screen received and chart review completed. Patient is a 64 yr old man who was hospitalized with SOB, BLE edema and COPD, o2 dependent. He lives with his ex- and when hospitalized end of Jul, 2019, he did not need any further therapy upon d/c. At this time no further OT indicated unles patient as a decline in ADls from baseline. Thank you. Felicitas Angulo OTR/l
--- NOTE | 2019-08-31 10:40 | NUR ---
Scientific Research Manager in to talk to patient. Patient states lives at home with ex-. There are 3 steps in the home. Physician: Briana [facility] Home health services: None Patient's level of ADLs: INDEPENDENT Patient has working utilities: Yes DME: Respitory equipment Follow-up physician's appointment after d/c: will be scheduled by hospitalist Does patient want to access PORTAL?: no Discharge plan is for patien to discharge home with no needs. LENI COLLINS
[2019-08-31 12:00] VITALS: BP 123/63
--- NOTE | 2019-08-31 12:10 | NUR ---
Occupational Therapy referral received and screen completed. Patient is independent in ambulating to the bathroom, transfers in his room and ADLs. Patient reports no dizziness or fatigue. At this time no further OT indicated. Patient reports that he will be returning home w/ ex- upon d/c. Thank you. Felicitas Angulo Otr/l
--- NOTE | 2019-08-31 13:17 | NUR ---
PHYSICAL THERAPY Pt was seen today for evaluation on 4th floor. Pt reports he was having some walking difficulty for which he attributes to B LE swelling. He reports swelling has reduced and he has returned to independent function and walking. With assessment pt presents with independent ambulation up to 100' without device, no LOB noted. He is independent with transfers from bed, chair and commode. No further PT indicated at this time and no discharge recommendations to be made. Thank you for this referral Jennyfer Guerrero, PT
[2019-08-31 16:00] VITALS: BP 126/67
--- NOTE | 2019-08-31 18:21 | NUR ---
PT TOOK TRULICITY DOSE FROM HOME. DR. GOODMAN AWARE.
[2019-08-31 20:00] VITALS: BP 139/72
[2019-09-01] VITALS: BP 109/76
[2019-09-01 07:08] LABS: BUN 24 mg/dl (7-24); CHLORIDE 107 mmol/L (98-107); CREATININE 1.24 mg/dL (0.70-1.30); SODIUM 140 mmol/L (136-145)
[2019-09-01 08:00] VITALS: BP 100/68
[2019-09-01 12:00] VITALS: BP 105/70
--- NOTE | 2019-09-01 12:00 | NUR ---
PT STATES GENERALIZED PAIN 4/10, NORCO GIVEN. WILL MONITOR FOR EFFECTIVENESS
[2019-09-01] MEDS ORDERED: ZITHROMAX TRI-500 M1 PO (13:16)
[2019-09-01] MEDS ORDERED: PREDNISONE10 MG PO (13:17)
--- NOTE | 2019-09-01 13:50 | NUR ---
Discharge instructions reviewed with patient/family. Patient receptive and verbalizes understanding. Follow-up care understood. Written instructions given to patient/family. iv removed, tele removed. pt has no questions on discharge.discuss with patient in depth importance of following diet guidelines, pt states he has never followed those restrictions prior to admission this time. pt and family understand restrictions. declined wheelchair for discharge FREDERICK HOYT
[2019-09-01] MEDS ORDERED: DOXYCYCLINE100 MG PO (16:24)
== END 2019-09-01 13:50 | disposition home or self-care (01) | DRG 193 ==
LOC: ED 11:12 → EDHOLD 12:58 → 4E 12:58
PROVIDERS: Emergency Medicine; Internal Medicine; ADMIT Internal Medicine
DX: J18.9 Pneumonia, unspecified organism (principal); N17.0 Acute kidney failure with tubular necrosis; I50.23 Acute on chronic systolic (congestive) heart failure; I48.21 Permanent atrial fibrillation; I13.0 Hypertensive heart and chronic kidney disease with heart failure and stage 1 through stage 4 chronic kidney disease, or unspecified chronic kidney disease; E78.00 Pure hypercholesterolemia, unspecified; F41.1 Generalized anxiety disorder; G25.81 Restless legs syndrome; N18.9 Chronic kidney disease, unspecified; E11.22 Type 2 diabetes mellitus with diabetic chronic kidney disease; E87.6 Hypokalemia; E83.41 Hypermagnesemia; I48.0 Paroxysmal atrial fibrillation; K21.9 Gastro-esophageal reflux disease without esophagitis; E78.5 Hyperlipidemia, unspecified; E11.65 Type 2 diabetes mellitus with hyperglycemia; J43.1 Panlobular emphysema; E66.01 Morbid (severe) obesity due to excess calories; J43.2 Centrilobular emphysema; I25.10 Atherosclerotic heart disease of native coronary artery without angina pectoris; G89.29 Other chronic pain; M19.90 Unspecified osteoarthritis, unspecified site; F32.9 Major depressive disorder, single episode, unspecified; I25.2 Old myocardial infarction; Z90.49 Acquired absence of other specified parts of digestive tract; Z95.1 Presence of aortocoronary bypass graft; Z95.5 Presence of coronary angioplasty implant and graft; Z79.4 Long term (current) use of insulin; Z87.891 Personal history of nicotine dependence; Z79.01 Long term (current) use of anticoagulants; Z88.8 Allergy status to other drugs, medicaments and biological substances; Z88.5 Allergy status to narcotic agent; Z82.49 Family history of ischemic heart disease and other diseases of the circulatory system; Z83.3 Family history of diabetes mellitus; Z79.82 Long term (current) use of aspirin; Z79.899 Other long term (current) drug therapy; Z68.39 Body mass index [BMI] 39.0-39.9, adult; Z71.6 Tobacco abuse counseling

== ENCOUNTER → 2019-09-12 | Outpatient (CLI) | payer MEDICARE ==
[~2019-09-12] MED LIST changes: +DOXYCYCLINE100 MG PO; +HUMALOG100 UNIT/1 SC; +ROSUVASTATIN CA40 MG PO; +TRULICITY1.5 MG/0.5 SC
[2019-09-12 09:24] LABS: BASO # 0.1 10*3/uL (0.0-0.1); BASO % 0.5 % (0.0-1.0); EOS # 0.1 10*3/uL (0.0-0.4); EOS % 0.8 % (1.0-4.0); HEMATOCRIT 45.9 % (42.0-52.0); HEMOGLOBIN 15.4 g/dl (14.0-18.0); LYMPH # 1.3 10*3/uL (1.3-4.4); LYMPH % 10.4 % (27.0-41.0); MEAN CELL VOLUME 94.6 fl (80.0-94.0); MEAN CORPUSCULAR HGB 31.8 pg (27.0-31.0); MEAN CORPUSCULAR HGB CONC 33.6 g/dl (33.0-37.0); MEAN PLATELET VOLUME 10.2 fl (9.6-12.3); MONO # 0.7 10*3/uL (0.1-1.0); MONO % 5.6 % (3.0-9.0); NEUT # 10.5 10*3/uL (2.3-7.9); NEUT % 81.5 % (47.0-73.0); PLATELET COUNT AUTOMATED 199 10*3/uL (130-400); RED BLOOD COUNT 4.85 10*6/uL (4.50-5.90); RED CELL DISTRI WIDTH 13.8 % (0-14.5); WHITE BLOOD COUNT 12.9 10*3/uL (4.8-10.8)
[2019-09-12 09:29] LABS: BILIRUBIN NEGATIVE (NEGATIVE); CLARITY SL CLOUDY (CLEAR); COLOR YELLOW (YELLOW); GLUCOSE NEGATIVE (NEGATIVE); KETONE NEGATIVE (NEGATIVE); SPECIFIC GRAVITY 1.015 (1.005-1.030)
[2019-09-12 09:30] LABS: BLOOD NEGATIVE (NEGATIVE); LEUKO ESTERASE NEGATIVE (NEGATIVE); NITRITE NEGATIVE (NEGATIVE); PH 7.5 (5.0-9.0)
[2019-09-12 09:34] LABS: BACTERIA 2+; EPITHELIAL CELLS 0-2; MUCOUS TRACE; RBC 0-2 rbc/hpf (0-2); URINE CREATININE RANDOM 38.4 mg/dL; WBC 0-2 wbc/hpf (0-5)
[2019-09-12 10:02] LABS: ALBUMIN 3.7 gm/dl (3.1-4.5); BUN 22 mg/dl (7-24); CHLORIDE 106 mmol/L (98-107); CREATININE 1.44 mg/dL (0.70-1.30); PHOSPHOROUS 2.9 mg/dL (2.5-4.9); POTASSIUM 3.6 mmol/L (3.5-5.1); SODIUM 140 mmol/L (136-145)
[2019-09-12 10:24] LABS: VITAMIN D, 25-HYDROXY 29.1 ng/mL (30-100)
[2019-09-12 10:25] LABS: PTH INTACT 90.3 pg/mL (18.5-88.0)
== END | disposition home or self-care (01) ==
LOC: LAB 08:43
PROVIDERS: Internal Medicine Nephrology
DX: N17.9 Acute kidney failure, unspecified (principal); N25.81 Secondary hyperparathyroidism of renal origin

== ENCOUNTER 2020-01-17 16:16 | Emergency (ER) | payer MEDICARE ==
[~2020-01-17] VITALS: Ht 187.9 cm; Wt 117.9 kg
[2020-01-17 16:57] LABS: BASO # 0.1 10*3/uL (0.0-0.1); BASO % 0.8 % (0.0-1.0); EOS # 0.1 10*3/uL (0.0-0.4); EOS % 0.9 % (1.0-4.0); HEMATOCRIT 47.4 % (42.0-52.0); LYMPH # 1.4 10*3/uL (1.3-4.4); LYMPH % 13.1 % (27.0-41.0); MEAN CELL VOLUME 91.3 fl (80.0-94.0); MEAN CORPUSCULAR HGB 30.1 pg (27.0-31.0); MEAN CORPUSCULAR HGB CONC 32.9 g/dl (33.0-37.0); MEAN PLATELET VOLUME 10.7 fl (9.6-12.3); MONO # 0.7 10*3/uL (0.1-1.0); MONO % 6.8 % (3.0-9.0); NEUT # 8.3 10*3/uL (2.3-7.9); NEUT % 78.1 % (47.0-73.0); PLATELET COUNT AUTOMATED 185 10*3/uL (130-400); RED BLOOD COUNT 5.19 10*6/uL (4.50-5.90); RED CELL DISTRI WIDTH 12.3 % (0-14.5); WHITE BLOOD COUNT 10.6 10*3/uL (4.8-10.8)
[2020-01-17 17:07] LABS: ACT PARTIAL THROMBO TIME 28.3 SECONDS (20.0-32.1)
[2020-01-17 17:14] LABS: ALBUMIN 3.8 gm/dl (3.1-4.5); ALKALINE PHOSPHATASE 95 U/L (45-117); BUN 11 mg/dl (7-24); CHLORIDE 108 mmol/L (98-107); CREATININE 1.03 mg/dL (0.70-1.30); POTASSIUM 3.6 mmol/L (3.5-5.1); SGOT/AST 11 IU/L (3-35); SGPT/ALT 16 U/L (12-78); SODIUM 138 mmol/L (136-145); TOTAL PROTEIN 7.5 gm/dL (6.4-8.2)
[2020-01-17 17:15] LABS: TROPONIN I < 0.015 ng/ml (<0.045)
[2020-01-17 17:20] LABS: THYROID STIM HORMONE (HS) 0.783 uIU/ml (0.358-4.75)
[2020-01-17 18:15] LABS: URINE AMPHETAMINES < 1000 (1000ng/ml); URINE BARBITURATES < 200 (200ng/ml); URINE BENZODIAZEPINES < 200 (200ng/ml); URINE CANNABINOIDS (THC) < 50 (50ng/ml); URINE COCAINE < 300 (300ng/ml); URINE METHADONE < 300 (300ng/ml); URINE OPIATES < 300 (300ng/ml)
[2020-01-17 18:17] LABS: URINE PHENCYCLIDINE < 25 (25ng/ml)
[2020-01-17 18:24] LABS: BILIRUBIN NEGATIVE (NEGATIVE); BLOOD NEGATIVE (NEGATIVE); CLARITY CLEAR (CLEAR); COLOR YELLOW (YELLOW); GLUCOSE 3+ (NEGATIVE); KETONE NEGATIVE (NEGATIVE); LEUKO ESTERASE NEGATIVE (NEGATIVE); NITRITE NEGATIVE (NEGATIVE); SPECIFIC GRAVITY 1.015 (1.005-1.030); UROBILINOGEN 0.2 E.U./dl (0.2-1.0)
== END 2020-01-17 19:32 | disposition home or self-care (01) ==
LOC: ED 16:16
PROVIDERS: Emergency Medicine
DX: G89.29 Other chronic pain (principal); M54.2 Cervicalgia; M54.6 Pain in thoracic spine; M25.552 Pain in left hip; R79.1 Abnormal coagulation profile; J44.9 Chronic obstructive pulmonary disease, unspecified; E66.9 Obesity, unspecified; F17.200 Nicotine dependence, unspecified, uncomplicated

== ENCOUNTER → 2020-02-28 | Outpatient (CLI) | payer MEDICARE | END | disposition home or self-care (01) | LOC: RAD 09:40 | PROVIDERS: ATTEND Nurse Practitioner Family | DX: R07.81 Pleurodynia (principal) ==

== ENCOUNTER → 2020-03-04 | Outpatient (CLI) | payer MEDICARE | END | disposition home or self-care (01) | LOC: RAD 10:33 | PROVIDERS: ATTEND Nurse Practitioner Family | DX: J44.1 Chronic obstructive pulmonary disease with (acute) exacerbation (principal); Z95.1 Presence of aortocoronary bypass graft ==

== ENCOUNTER → 2020-03-29 | Outpatient (CLI) | payer MEDICARE ==
[2020-03-29 17:56] LABS: BASO # 0.1 10*3/uL (0.0-0.1); EOS # 0.1 10*3/uL (0.0-0.4); EOS % 1.7 % (1.0-4.0); LYMPH # 1.5 10*3/uL (1.3-4.4); LYMPH % 19.6 % (27.0-41.0); MEAN CELL VOLUME 90.9 fl (80.0-94.0); MEAN CORPUSCULAR HGB 29.8 pg (27.0-31.0); MEAN CORPUSCULAR HGB CONC 32.7 g/dl (33.0-37.0); MEAN PLATELET VOLUME 10.4 fl (9.6-12.3); MONO # 0.5 10*3/uL (0.1-1.0); MONO % 6.5 % (3.0-9.0); NEUT # 5.6 10*3/uL (2.3-7.9); NEUT % 70.9 % (47.0-73.0); PLATELET COUNT AUTOMATED 167 10*3/uL (130-400); RED BLOOD COUNT 4.84 10*6/uL (4.50-5.90); RED CELL DISTRI WIDTH 13.2 % (0-14.5); WHITE BLOOD COUNT 7.8 10*3/uL (4.8-10.8)
[2020-03-29 17:59] LABS: BILIRUBIN Negative (Negative); BLOOD Negative (Negative); CLARITY Clear (Clear); COLOR Yellow (Yellow); GLUCOSE 3+ (Negative); KETONE Negative (Negative); LEUKO ESTERASE Negative (Negative); NITRITE Negative (Negative); SPECIFIC GRAVITY 1.015 (1.001-1.030)
[2020-03-29 18:09] LABS: BACTERIA TRACE; EPITHELIAL CELLS 0-2; RBC 0-2 rbc/hpf (0-2); WBC 0-2 wbc/hpf (0-5); YEAST TRACE
[2020-03-29 18:11] LABS: ALBUMIN 3.7 gm/dl (3.1-4.5); BUN 9 mg/dl (7-24); CHLORIDE 106 mmol/L (98-107); SODIUM 140 mmol/L (136-145)
[2020-03-29 18:35] LABS: PTH INTACT 127.1 pg/mL (18.5-88.0); VITAMIN D, 25-HYDROXY 64.8 ng/mL (30-100)
== END | disposition home or self-care (01) ==
LOC: LAB 17:29
PROVIDERS: ATTEND Internal Medicine Nephrology
DX: N17.9 Acute kidney failure, unspecified (principal); N25.81 Secondary hyperparathyroidism of renal origin

== ENCOUNTER → 2020-10-07 | Outpatient (CLI) | payer MEDICARE ==
[2020-10-07 12:43] LABS: ALBUMIN 3.7 gm/dl (3.1-4.5); BUN 13 mg/dl (7-24); CHLORIDE 111 mmol/L (98-107); CHOLESTEROL 111 mg/dL (<200); POTASSIUM 3.8 mmol/L (3.5-5.1); SGOT/AST 14 IU/L (3-35); SGPT/ALT 13 U/L (12-78); SODIUM 141 mmol/L (136-145); TOTAL PROTEIN 7.3 gm/dL (6.4-8.2); TRIGLYCERIDES 91 mg/dl (<150); VLDL CHOLESTEROL 18 mg/dL (6-40)
[2020-10-07 12:45] LABS: ALKALINE PHOSPHATASE 99 U/L (45-117); HDL CHOLESTEROL 41 mg/dl (40-60); LDL CHOLESTEROL 52 mg/dL (9-159)
[2020-10-07 13:19] LABS: VITAMIN D, 25-HYDROXY 45.1 ng/mL (30-100)
[2020-10-08 10:07] LABS: CREATININE,URINE 53.9 mg/dL (Not Estab.)
== END | disposition home or self-care (01) ==
LOC: LAB 11:19
PROVIDERS: ATTEND Internal Medicine Endocrinology, Diabetes & Metabolism
DX: E11.65 Type 2 diabetes mellitus with hyperglycemia (principal); E55.9 Vitamin D deficiency, unspecified; E53.8 Deficiency of other specified B group vitamins

== ENCOUNTER → 2020-11-07 | Outpatient (CLI) | payer MEDICARE ==
[2020-11-07 10:51] LABS: BASO % 0.5 % (0.0-1.0); EOS # 0.1 10*3/uL (0.0-0.4); EOS % 1.1 % (1.0-4.0); LYMPH # 1.3 10*3/uL (1.3-4.4); LYMPH % 17.4 % (27.0-41.0); MEAN CELL VOLUME 90.1 fl (80.0-94.0); MEAN CORPUSCULAR HGB 29.8 pg (27.0-31.0); MEAN CORPUSCULAR HGB CONC 33.1 g/dl (33.0-37.0); MEAN PLATELET VOLUME 9.8 fl (9.6-12.3); MONO # 0.5 10*3/uL (0.1-1.0); MONO % 6.9 % (3.0-9.0); NEUT # 5.6 10*3/uL (2.3-7.9); NEUT % 73.8 % (47.0-73.0); PLATELET COUNT AUTOMATED 215 10*3/uL (130-400); RED BLOOD COUNT 5.44 10*6/uL (4.50-5.90); RED CELL DISTRI WIDTH 13.2 % (0-14.5); WHITE BLOOD COUNT 7.6 10*3/uL (4.8-10.8)
[2020-11-07 10:57] LABS: BILIRUBIN Negative (Negative); BLOOD Negative (Negative); CLARITY Clear (Clear); COLOR Yellow (Yellow); GLUCOSE 3+ (Negative); KETONE Negative (Negative); LEUKO ESTERASE 1+ (Negative); NITRITE Negative (Negative); PH 5.5 (4.5-8.0)
[2020-11-07 11:00] LABS: URINE CREATININE RANDOM 29.5 mg/dL
[2020-11-07 11:03] LABS: ALBUMIN 3.8 gm/dl (3.1-4.5); BUN 13 mg/dl (7-24); CHLORIDE 103 mmol/L (98-107); CREATININE 1.07 mg/dL (0.70-1.30); POTASSIUM 4.2 mmol/L (3.5-5.1); SODIUM 136 mmol/L (136-145)
[2020-11-07 11:42] LABS: PTH INTACT 126.1 pg/mL (18.5-88.0)
[2020-11-07 12:19] LABS: BACTERIA TRACE; YEAST 1+
== END | disposition home or self-care (01) ==
LOC: LAB 10:30
PROVIDERS: ATTEND Internal Medicine Nephrology
DX: N17.9 Acute kidney failure, unspecified (principal); N25.81 Secondary hyperparathyroidism of renal origin

== ENCOUNTER → 2020-12-11 | Outpatient (CLI) | payer MEDICARE | END | disposition home or self-care (01) | LOC: LAB 10:36 | PROVIDERS: ATTEND Nurse Practitioner Family | DX: M19.012 Primary osteoarthritis, left shoulder (principal); I12.9 Hypertensive chronic kidney disease with stage 1 through stage 4 chronic kidney disease, or unspecified chronic kidney disease; E11.22 Type 2 diabetes mellitus with diabetic chronic kidney disease; N18.9 Chronic kidney disease, unspecified; J44.1 Chronic obstructive pulmonary disease with (acute) exacerbation; I48.0 Paroxysmal atrial fibrillation; Z72.0 Tobacco use ==

== ENCOUNTER → 2020-12-25 | Outpatient (CLI) | payer MEDICARE | END | disposition home or self-care (01) | LOC: RAD 11:26 | PROVIDERS: ATTEND Nurse Practitioner Family | DX: M47.812 Spondylosis without myelopathy or radiculopathy, cervical region (principal); M50.30 Other cervical disc degeneration, unspecified cervical region; M48.02 Spinal stenosis, cervical region; M25.78 Osteophyte, vertebrae; I25.10 Atherosclerotic heart disease of native coronary artery without angina pectoris; R25.2 Cramp and spasm ==

== ENCOUNTER → 2021-04-23 | Outpatient (CLI) | payer MEDICARE | END | disposition home or self-care (01) | LOC: RAD 11:20 | PROVIDERS: ATTEND Nurse Practitioner Family | DX: J44.1 Chronic obstructive pulmonary disease with (acute) exacerbation (principal); R05.9 Cough, unspecified; R06.02 Shortness of breath ==

== ENCOUNTER → 2021-05-05 | Outpatient (CLI) | payer MEDICARE ==
[2021-05-05 12:23] LABS: BASO % 0.1 % (0.0-1.0); EOS % 0.2 % (1.0-4.0); HEMATOCRIT 45.7 % (42.0-52.0); LYMPH # 1.3 10*3/uL (1.3-4.4); LYMPH % 8.7 % (27.0-41.0); MEAN CELL VOLUME 93.1 fl (80.0-94.0); MEAN CORPUSCULAR HGB 29.9 pg (27.0-31.0); MEAN CORPUSCULAR HGB CONC 32.2 g/dl (33.0-37.0); MEAN PLATELET VOLUME 10.6 fl (9.6-12.3); MONO # 0.8 10*3/uL (0.1-1.0); MONO % 5.4 % (3.0-9.0); NEUT # 12.4 10*3/uL (2.3-7.9); NEUT % 85.2 % (47.0-73.0); PLATELET COUNT AUTOMATED 196 10*3/uL (130-400); RED BLOOD COUNT 4.91 10*6/uL (4.50-5.90); RED CELL DISTRI WIDTH 13.9 % (0-14.5); WHITE BLOOD COUNT 14.6 10*3/uL (4.8-10.8)
[2021-05-05 12:25] LABS: BILIRUBIN Negative (Negative); BLOOD Negative (Negative); CLARITY Clear (Clear); COLOR Yellow (Yellow); GLUCOSE 3+ (Negative); KETONE Negative (Negative); LEUKO ESTERASE Negative (Negative); NITRITE Negative (Negative); PH 5.5 (4.5-8.0)
[2021-05-05 12:33] LABS: URINE CREATININE RANDOM 36.4 mg/dL
[2021-05-05 12:34] LABS: ALBUMIN 3.5 gm/dl (3.1-4.5); BUN 17 mg/dl (7-24); CHLORIDE 107 mmol/L (98-107); CREATININE 0.88 mg/dL (0.70-1.30); POTASSIUM 3.8 mmol/L (3.5-5.1); SODIUM 140 mmol/L (136-145)
[2021-05-05 13:11] LABS: EPITHELIAL CELLS 0-2; WBC 0-2 wbc/hpf (0-5); YEAST TRACE
[2021-05-05 13:28] LABS: VITAMIN D, 25-HYDROXY 39.3 ng/mL (30-100)
== END | disposition home or self-care (01) ==
LOC: LAB 11:17
PROVIDERS: ATTEND Internal Medicine Nephrology
DX: N18.2 Chronic kidney disease, stage 2 (mild) (principal); N25.81 Secondary hyperparathyroidism of renal origin

== ENCOUNTER → 2021-07-20 | Outpatient (CLI) | payer MEDICARE | END | disposition home or self-care (01) | LOC: CARD 10:08 | PROVIDERS: ATTEND Internal Medicine Cardiovascular Disease | DX: Z01.810 Encounter for preprocedural cardiovascular examination (principal); I08.1 Rheumatic disorders of both mitral and tricuspid valves; R06.00 Dyspnea, unspecified ==

== ENCOUNTER → 2021-08-25 | Outpatient (CLI) | payer MEDICARE ==
[~2021-08-25] MED LIST changes: +CYMBALTA60 MG PO; +Imdur SA60 MG PO; +METFORMIN HCL1000 M1 PO; +VIT B PO; +VIT D3 PO
== END | disposition home or self-care (01) ==
LOC: CARD 00:58
PROVIDERS: ATTEND Internal Medicine Cardiovascular Disease
DX: I25.5 Ischemic cardiomyopathy (principal); F17.200 Nicotine dependence, unspecified, uncomplicated; I48.91 Unspecified atrial fibrillation

== ENCOUNTER 2021-10-28 11:15 | Observation (INO) | payer MEDICARE ==
[~2021-10-28] VITALS: Ht 188 cm; Wt 95.3 kg
[2021-10-28] VITALS (9 sets, daily range): BP systolic 91–146; BP diastolic 50–95
[~2021-10-28 11:15] MED LIST changes: +COREG6.25 MG PO; +OMEPRAZOLE40 MG PO; -VIT B PO; -VIT D3 PO; +VITAMIN B121000 MC1 PO; +VITAMIN D350 MCG PO
[2021-10-28 11:36] LABS: BASO # 0.1 10*3/uL (0.0-0.1); BASO % 0.7 % (0.0-1.0); EOS # 0.1 10*3/uL (0.0-0.4); EOS % 1.3 % (1.0-4.0); HEMATOCRIT 44.6 % (42.0-52.0); LYMPH % 10.8 % (27.0-41.0); MEAN CELL VOLUME 93.9 fl (80.0-94.0); MEAN CORPUSCULAR HGB 29.7 pg (27.0-31.0); MEAN CORPUSCULAR HGB CONC 31.6 g/dl (33.0-37.0); MEAN PLATELET VOLUME 10.3 fl (9.6-12.3); MONO # 0.4 10*3/uL (0.1-1.0); MONO % 4.4 % (3.0-9.0); NEUT # 7.5 10*3/uL (2.3-7.9); NEUT % 82.5 % (47.0-73.0); PLATELET COUNT AUTOMATED 195 10*3/uL (130-400); RED BLOOD COUNT 4.75 10*6/uL (4.50-5.90); RED CELL DISTRI WIDTH 15.2 % (0-14.5); WHITE BLOOD COUNT 9.1 10*3/uL (4.8-10.8)
[2021-10-28 11:53] LABS: ALKALINE PHOSPHATASE 87 U/L (45-117); BUN 9 mg/dl (7-24); CHLORIDE 107 mmol/L (98-107); CREATININE 0.84 mg/dL (0.70-1.30); LIPASE 96 U/L (73-393); POTASSIUM 4.1 mmol/L (3.5-5.1); SGOT/AST 11 IU/L (3-35); SGPT/ALT 18 U/L (12-78); SODIUM 140 mmol/L (136-145); TOTAL PROTEIN 7.6 gm/dL (6.4-8.2)
[2021-10-29] VITALS: BP 110/80
[2021-10-29 06:32] LABS: ALKALINE PHOSPHATASE 77 U/L (45-117); BUN 14 mg/dl (7-24); CHLORIDE 109 mmol/L (98-107); CHOLESTEROL 109 mg/dL (<200); LDL CHOLESTEROL 54 mg/dL (9-159); SGOT/AST 9 IU/L (3-35); SGPT/ALT 15 U/L (12-78); SODIUM 142 mmol/L (136-145); TOTAL PROTEIN 6.3 gm/dL (6.4-8.2); TRIGLYCERIDES 84 mg/dl (<150)
[2021-10-29 06:38] LABS: BASO % 0.2 % (0.0-1.0); LYMPH # 0.7 10*3/uL (1.3-4.4); LYMPH % 7.3 % (27.0-41.0); MEAN CELL VOLUME 94.1 fl (80.0-94.0); MEAN CORPUSCULAR HGB 30.4 pg (27.0-31.0); MEAN CORPUSCULAR HGB CONC 32.3 g/dl (33.0-37.0); MEAN PLATELET VOLUME 10.8 fl (9.6-12.3); MONO # 0.5 10*3/uL (0.1-1.0); MONO % 4.9 % (3.0-9.0); NEUT # 8.2 10*3/uL (2.3-7.9); NEUT % 87.4 % (47.0-73.0); PLATELET COUNT AUTOMATED 171 10*3/uL (130-400); RED BLOOD COUNT 4.25 10*6/uL (4.50-5.90); RED CELL DISTRI WIDTH 14.7 % (0-14.5); WHITE BLOOD COUNT 9.4 10*3/uL (4.8-10.8)
[2021-10-29 08:00] VITALS: BP 124/72
[2021-10-29] MEDS ORDERED: DOCUSATE SOD100 MG PO (10:50)
== END 2021-10-29 13:15 | disposition home or self-care (01) ==
LOC: ED 11:15 → 4E 16:13
PROVIDERS: Family Medicine; Internal Medicine; ADMIT Family Medicine; ATTEND Family Medicine
DX: K40.00 Bilateral inguinal hernia, with obstruction, without gangrene, not specified as recurrent (principal); R00.0 Tachycardia, unspecified; I48.0 Paroxysmal atrial fibrillation; J44.9 Chronic obstructive pulmonary disease, unspecified; E11.65 Type 2 diabetes mellitus with hyperglycemia; I25.10 Atherosclerotic heart disease of native coronary artery without angina pectoris; E78.5 Hyperlipidemia, unspecified; J96.21 Acute and chronic respiratory failure with hypoxia; I50.20 Unspecified systolic (congestive) heart failure; I11.0 Hypertensive heart disease with heart failure; K21.9 Gastro-esophageal reflux disease without esophagitis; F41.9 Anxiety disorder, unspecified; M19.90 Unspecified osteoarthritis, unspecified site; I25.2 Old myocardial infarction; Z79.84 Long term (current) use of oral hypoglycemic drugs; Z79.899 Other long term (current) drug therapy; Z87.891 Personal history of nicotine dependence; Z99.81 Dependence on supplemental oxygen

== ENCOUNTER → 2021-12-25 | Outpatient (CLI) | payer MEDICARE ==
[~2021-12-25] MED LIST changes: +DOCUSATE SOD100 MG PO
== END | disposition home or self-care (01) ==
LOC: CT 09:00
PROVIDERS: ATTEND Surgery
DX: K40.90 Unilateral inguinal hernia, without obstruction or gangrene, not specified as recurrent (principal); I51.7 Cardiomegaly; I25.10 Atherosclerotic heart disease of native coronary artery without angina pectoris; K57.30 Diverticulosis of large intestine without perforation or abscess without bleeding; K76.0 Fatty (change of) liver, not elsewhere classified

== ENCOUNTER → 2022-06-09 | Outpatient (CLI) | payer MEDICARE ==
[~2022-06-09] MED LIST changes: +OXYGEN NAS
[2022-06-09 13:38] LABS: BILIRUBIN Negative (Negative); BLOOD Trace-Intact (Negative); CLARITY Clear (Clear); COLOR Yellow (Yellow); GLUCOSE Trace (Negative); KETONE Negative (Negative); LEUKO ESTERASE 2+ (Negative); NITRITE Negative (Negative); PH 5.5 (4.5-8.0)
[2022-06-09 13:41] LABS: BASO # 0.1 10*3/uL (0.0-0.1); BASO % 0.7 % (0.0-1.0); EOS # 0.1 10*3/uL (0.0-0.4); EOS % 1.4 % (1.0-4.0); HEMATOCRIT 40.6 % (42.0-52.0); LYMPH # 0.9 10*3/uL (1.3-4.4); LYMPH % 13.2 % (27.0-41.0); MEAN CELL VOLUME 97.1 fl (80.0-94.0); MEAN CORPUSCULAR HGB 31.8 pg (27.0-31.0); MEAN CORPUSCULAR HGB CONC 32.8 g/dl (33.0-37.0); MEAN PLATELET VOLUME 9.9 fl (9.6-12.3); MONO # 0.5 10*3/uL (0.1-1.0); MONO % 6.4 % (3.0-9.0); NEUT # 5.5 10*3/uL (2.3-7.9); NEUT % 77.9 % (47.0-73.0); PLATELET COUNT AUTOMATED 144 10*3/uL (130-400); RED BLOOD COUNT 4.18 10*6/uL (4.50-5.90); RED CELL DISTRI WIDTH 14.3 % (0-14.5); WHITE BLOOD COUNT 7.1 10*3/uL (4.8-10.8)
[2022-06-09 13:46] LABS: URINE CREATININE RANDOM 69.46 mg/dL
[2022-06-09 13:54] LABS: BUN 11 mg/dl (9-23); CHLORIDE 111 mmol/L (98-107); CREATININE 0.71 mg/dL (0.70-1.30); POTASSIUM 5.1 mmol/L (3.4-5.1); SODIUM 139 mmol/L (136-145)
[2022-06-09 14:11] LABS: BACTERIA TRACE; RBC 0-2 rbc/hpf (0-2); WBC TNTC wbc/hpf (0-5)
[2022-06-09 14:12] LABS: YEAST 2+
[2022-06-09 14:17] LABS: VITAMIN D, 25-HYDROXY 51.2 ng/mL (30-100)
== END | disposition home or self-care (01) ==
LOC: LAB 13:03
PROVIDERS: ATTEND Internal Medicine Nephrology
DX: N18.2 Chronic kidney disease, stage 2 (mild) (principal); N25.81 Secondary hyperparathyroidism of renal origin

== ENCOUNTER → 2022-07-09 | Outpatient (CLI) | payer OTHER ==
[~2022-07-09] MED LIST changes: +COLACE100 MG PO; +HYDROCODONE-AC1 EAC1 PO; +ONDANSETRON HYDR4 M1 PO
[2022-07-09 16:21] LABS: BASO % 0.6 % (0.0-1.0); EOS # 0.1 10*3/uL (0.0-0.4); EOS % 0.8 % (1.0-4.0); HEMATOCRIT 42.8 % (42.0-52.0); LYMPH # 0.7 10*3/uL (1.3-4.4); LYMPH % 9.8 % (27.0-41.0); MEAN CELL VOLUME 97.3 fl (80.0-94.0); MEAN CORPUSCULAR HGB 32.3 pg (27.0-31.0); MEAN CORPUSCULAR HGB CONC 33.2 g/dl (33.0-37.0); MONO # 0.6 10*3/uL (0.1-1.0); MONO % 8.7 % (3.0-9.0); NEUT # 5.7 10*3/uL (2.3-7.9); NEUT % 79.8 % (47.0-73.0); PLATELET COUNT AUTOMATED 145 10*3/uL (130-400); WHITE BLOOD COUNT 7.1 10*3/uL (4.8-10.8)
[2022-07-09 16:35] LABS: ALKALINE PHOSPHATASE 66 U/L (46-116); BUN 10 mg/dl (9-23); CHLORIDE 106 mmol/L (98-107); CHOLESTEROL 95 mg/dL (<200); LDL CHOLESTEROL 48 mg/dL (9-159); POTASSIUM 3.8 mmol/L (3.4-5.1); SGPT/ALT 11 U/L (10-49); TRIGLYCERIDES 82 mg/dl (<150)
== END | disposition home or self-care (01) ==
LOC: LAB 14:32
PROVIDERS: ATTEND Nurse Practitioner Family
DX: I12.9 Hypertensive chronic kidney disease with stage 1 through stage 4 chronic kidney disease, or unspecified chronic kidney disease (principal); E11.22 Type 2 diabetes mellitus with diabetic chronic kidney disease; N18.9 Chronic kidney disease, unspecified; I48.0 Paroxysmal atrial fibrillation; Z23 Encounter for immunization; J44.1 Chronic obstructive pulmonary disease with (acute) exacerbation; Z72.0 Tobacco use

== ENCOUNTER → 2022-07-12 | Day surgery (SDC) | payer OTHER ==
[2022-07-09 14:58] VITALS: BP 123/64
[2022-07-12] VITALS (7 sets, daily range): BP systolic 112–132; BP diastolic 50–67
[~2022-07-12] VITALS: Ht 187.9 cm; Wt 95.3 kg
== END | disposition home or self-care (01) ==
LOC: SDC 07-09 14:00
PROVIDERS: ATTEND Surgery
DX: K40.31 Unilateral inguinal hernia, with obstruction, without gangrene, recurrent (principal); N50.3 Cyst of epididymis; I11.0 Hypertensive heart disease with heart failure; I50.9 Heart failure, unspecified; E11.9 Type 2 diabetes mellitus without complications; J44.9 Chronic obstructive pulmonary disease, unspecified; Z95.1 Presence of aortocoronary bypass graft; E78.00 Pure hypercholesterolemia, unspecified; I25.10 Atherosclerotic heart disease of native coronary artery without angina pectoris; G43.909 Migraine, unspecified, not intractable, without status migrainosus; I48.91 Unspecified atrial fibrillation; F17.210 Nicotine dependence, cigarettes, uncomplicated; Z88.5 Allergy status to narcotic agent; Z88.8 Allergy status to other drugs, medicaments and biological substances; Z79.899 Other long term (current) drug therapy

== ENCOUNTER → 2022-10-26 | Outpatient (CLI) | payer OTHER ==
[2022-10-26 12:35] LABS: BASO # 0.1 10*3/uL (0.0-0.1); BASO % 0.7 % (0.0-1.0); EOS # 0.2 10*3/uL (0.0-0.4); EOS % 1.8 % (1.0-4.0); HEMATOCRIT 44.1 % (42.0-52.0); LYMPH # 1.3 10*3/uL (1.3-4.4); LYMPH % 15.7 % (27.0-41.0); MEAN CELL VOLUME 98.7 fl (80.0-94.0); MEAN CORPUSCULAR HGB 32.7 pg (27.0-31.0); MEAN CORPUSCULAR HGB CONC 33.1 g/dl (33.0-37.0); MEAN PLATELET VOLUME 9.9 fl (9.6-12.3); MONO # 0.4 10*3/uL (0.1-1.0); MONO % 5.3 % (3.0-9.0); NEUT # 6.2 10*3/uL (2.3-7.9); NEUT % 76.3 % (47.0-73.0); PLATELET COUNT AUTOMATED 143 10*3/uL (130-400); RED BLOOD COUNT 4.47 10*6/uL (4.50-5.90); RED CELL DISTRI WIDTH 12.7 % (0-14.5); WHITE BLOOD COUNT 8.2 10*3/uL (4.8-10.8)
[2022-10-26 12:58] LABS: ALKALINE PHOSPHATASE 61 U/L (46-116); BUN 9 mg/dl (9-23); CHLORIDE 107 mmol/L (98-107); CHOLESTEROL 117 mg/dL (<200); LDL CHOLESTEROL 54 mg/dL (9-159); SGPT/ALT 12 U/L (10-49); TRIGLYCERIDES 114 mg/dl (<150)
== END | disposition home or self-care (01) ==
LOC: LAB 12:16
PROVIDERS: ATTEND Nurse Practitioner Family
DX: I48.0 Paroxysmal atrial fibrillation (principal); J44.1 Chronic obstructive pulmonary disease with (acute) exacerbation; E11.22 Type 2 diabetes mellitus with diabetic chronic kidney disease; I12.9 Hypertensive chronic kidney disease with stage 1 through stage 4 chronic kidney disease, or unspecified chronic kidney disease; N18.9 Chronic kidney disease, unspecified; Z72.0 Tobacco use

== ENCOUNTER 2022-11-29 16:26 | Emergency (ER) | payer OTHER ==
[~2022-11-29] VITALS: Ht 187.9 cm; Wt 99.8 kg
[2022-11-29 17:37] LABS: BASO % 0.6 % (0.0-1.0); EOS # 0.1 10*3/uL (0.0-0.4); EOS % 1.5 % (1.0-4.0); HEMATOCRIT 42.1 % (42.0-52.0); LYMPH # 1.5 10*3/uL (1.3-4.4); LYMPH % 20.3 % (27.0-41.0); MEAN CELL VOLUME 96.3 fl (80.0-94.0); MEAN CORPUSCULAR HGB 31.8 pg (27.0-31.0); MEAN PLATELET VOLUME 10.3 fl (9.6-12.3); MONO # 0.5 10*3/uL (0.1-1.0); MONO % 6.5 % (3.0-9.0); NEUT # 5.2 10*3/uL (2.3-7.9); PLATELET COUNT AUTOMATED 126 10*3/uL (130-400); RED BLOOD COUNT 4.37 10*6/uL (4.50-5.90); RED CELL DISTRI WIDTH 12.7 % (0-14.5); WHITE BLOOD COUNT 7.3 10*3/uL (4.8-10.8)
[2022-11-29 17:49] LABS: ACT PARTIAL THROMBO TIME 28.5 SECONDS (20.0-32.1)
[2022-11-29 17:58] LABS: ALKALINE PHOSPHATASE 56 U/L (46-116); BUN 10 mg/dl (9-23); CHLORIDE 111 mmol/L (98-107); LIPASE 33 U/L (12-53); POTASSIUM 3.3 mmol/L (3.4-5.1); SGPT/ALT 12 U/L (10-49); TOTAL PROTEIN 6.5 gm/dL (6.0-8.0)
== END 2022-11-29 18:54 | disposition left against medical advice (07) ==
LOC: ED 16:26
PROVIDERS: Emergency Medicine
DX: R55 Syncope and collapse (principal); I25.2 Old myocardial infarction; E11.9 Type 2 diabetes mellitus without complications; I50.9 Heart failure, unspecified; I11.0 Hypertensive heart disease with heart failure; J44.9 Chronic obstructive pulmonary disease, unspecified; Z87.442 Personal history of urinary calculi; E78.00 Pure hypercholesterolemia, unspecified; Z88.8 Allergy status to other drugs, medicaments and biological substances; Z88.5 Allergy status to narcotic agent; Z90.49 Acquired absence of other specified parts of digestive tract; Z98.890 Other specified postprocedural states; F17.200 Nicotine dependence, unspecified, uncomplicated

== ENCOUNTER → 2022-12-07 | Outpatient (CLI) | payer OTHER ==
[2022-12-07 10:44] LABS: BUN 8 mg/dl (9-23); CHLORIDE 109 mmol/L (98-107); POTASSIUM 3.5 mmol/L (3.4-5.1)
== END | disposition home or self-care (01) ==
LOC: LAB 09:42
PROVIDERS: ATTEND Internal Medicine Cardiovascular Disease
DX: I10 Essential (primary) hypertension (principal); E87.6 Hypokalemia; Z95.810 Presence of automatic (implantable) cardiac defibrillator

== ENCOUNTER → 2023-01-06 | Outpatient (CLI) | payer OTHER ==
[2023-01-06 15:36] LABS: BUN 13 mg/dl (9-23); CHLORIDE 107 mmol/L (98-107); POTASSIUM 3.6 mmol/L (3.4-5.1)
== END | disposition home or self-care (01) ==
LOC: LAB 15:01
PROVIDERS: ATTEND Internal Medicine Cardiovascular Disease
DX: I10 Essential (primary) hypertension (principal); E87.6 Hypokalemia

== ENCOUNTER → 2023-01-11 | Outpatient (CLI) | payer OTHER ==
[2023-01-11 13:49] LABS: BASO % 0.5 % (0.0-1.0); EOS # 0.1 10*3/uL (0.0-0.4); EOS % 1.3 % (1.0-4.0); HEMATOCRIT 42.6 % (42.0-52.0); LYMPH # 1.4 10*3/uL (1.3-4.4); LYMPH % 15.8 % (27.0-41.0); MEAN CELL VOLUME 95.7 fl (80.0-94.0); MEAN CORPUSCULAR HGB 32.4 pg (27.0-31.0); MEAN CORPUSCULAR HGB CONC 33.8 g/dl (33.0-37.0); MEAN PLATELET VOLUME 9.3 fl (9.6-12.3); MONO # 0.5 10*3/uL (0.1-1.0); MONO % 6.2 % (3.0-9.0); NEUT # 6.5 10*3/uL (2.3-7.9); NEUT % 75.9 % (47.0-73.0); PLATELET COUNT AUTOMATED 186 10*3/uL (130-400); RED BLOOD COUNT 4.45 10*6/uL (4.50-5.90); RED CELL DISTRI WIDTH 12.6 % (0-14.5); WHITE BLOOD COUNT 8.6 10*3/uL (4.8-10.8)
[2023-01-11 14:12] LABS: ALKALINE PHOSPHATASE 68 U/L (46-116); BUN 14 mg/dl (9-23); CHLORIDE 103 mmol/L (98-107); SGPT/ALT 9 U/L (10-49); TOTAL PROTEIN 7.1 gm/dL (6.0-8.0)
== END | disposition home or self-care (01) ==
LOC: LAB 13:23
PROVIDERS: ATTEND Nurse Practitioner Family
DX: J44.9 Chronic obstructive pulmonary disease, unspecified (principal); E11.22 Type 2 diabetes mellitus with diabetic chronic kidney disease; J18.8 Other pneumonia, unspecified organism; N18.9 Chronic kidney disease, unspecified; J90 Pleural effusion, not elsewhere classified

== ENCOUNTER → 2023-02-04 | Outpatient (CLI) | payer OTHER ==
[2023-02-04 09:04] LABS: BASO # 0.1 10*3/uL (0.0-0.1); BASO % 1.2 % (0.0-1.0); EOS # 0.1 10*3/uL (0.0-0.4); EOS % 1.9 % (1.0-4.0); HEMATOCRIT 46.2 % (42.0-52.0); LYMPH # 1.2 10*3/uL (1.3-4.4); LYMPH % 22.9 % (27.0-41.0); MEAN CELL VOLUME 98.5 fl (80.0-94.0); MEAN CORPUSCULAR HGB CONC 32.5 g/dl (33.0-37.0); MEAN PLATELET VOLUME 10.3 fl (9.6-12.3); MONO # 0.4 10*3/uL (0.1-1.0); MONO % 6.9 % (3.0-9.0); NEUT # 3.5 10*3/uL (2.3-7.9); NEUT % 66.9 % (47.0-73.0); PLATELET COUNT AUTOMATED 152 10*3/uL (130-400); RED BLOOD COUNT 4.69 10*6/uL (4.50-5.90); RED CELL DISTRI WIDTH 13.2 % (0-14.5); WHITE BLOOD COUNT 5.2 10*3/uL (4.8-10.8)
[2023-02-04 09:28] LABS: ALKALINE PHOSPHATASE 60 U/L (46-116); BUN 14 mg/dl (9-23); CHLORIDE 108 mmol/L (98-107); CHOLESTEROL 120 mg/dL (<200); LDL CHOLESTEROL 65 mg/dL (9-159); SGPT/ALT 13 U/L (10-49); TOTAL PROTEIN 7.1 gm/dL (6.0-8.0); TRIGLYCERIDES 78 mg/dl (<150)
== END | disposition home or self-care (01) ==
LOC: LAB 08:00
PROVIDERS: ATTEND Nurse Practitioner Family
DX: E11.22 Type 2 diabetes mellitus with diabetic chronic kidney disease (principal); I48.0 Paroxysmal atrial fibrillation; I12.9 Hypertensive chronic kidney disease with stage 1 through stage 4 chronic kidney disease, or unspecified chronic kidney disease; J44.1 Chronic obstructive pulmonary disease with (acute) exacerbation; N18.9 Chronic kidney disease, unspecified; Z72.0 Tobacco use

== ENCOUNTER → 2023-02-08 | Outpatient (CLI) | payer OTHER ==
[~2023-02-08] MED LIST changes: +ENTRESTO 24 MG1 EACH PO
== END | disposition home or self-care (01) ==
LOC: CARD 01:42
PROVIDERS: ATTEND Internal Medicine Cardiovascular Disease
DX: I25.5 Ischemic cardiomyopathy (principal); R53.83 Other fatigue; R06.02 Shortness of breath

== ENCOUNTER → 2023-02-10 | Outpatient (CLI) | payer OTHER ==
[2023-02-10 15:31] LABS: HEMATOCRIT 41.8 % (42.0-52.0)
[2023-02-10 16:01] LABS: BUN 15 mg/dl (9-23); POTASSIUM 3.5 mmol/L (3.4-5.1)
== END | disposition home or self-care (01) ==
LOC: LAB 15:05
PROVIDERS: ATTEND Internal Medicine Cardiovascular Disease
DX: R94.39 Abnormal result of other cardiovascular function study (principal); R07.9 Chest pain, unspecified

== ENCOUNTER → 2023-06-07 | Outpatient (CLI) | payer OTHER ==
[2023-06-07 10:59] LABS: BASO # 0.1 10*3/uL (0.0-0.1); EOS # 0.1 10*3/uL (0.0-0.4); EOS % 1.6 % (1.0-4.0); HEMATOCRIT 45.9 % (42.0-52.0); LYMPH % 14.6 % (27.0-41.0); MEAN CELL VOLUME 102.2 fl (80.0-94.0); MEAN CORPUSCULAR HGB 32.5 pg (27.0-31.0); MEAN CORPUSCULAR HGB CONC 31.8 g/dl (33.0-37.0); MEAN PLATELET VOLUME 9.6 fl (9.6-12.3); MONO # 0.4 10*3/uL (0.1-1.0); MONO % 5.9 % (3.0-9.0); NEUT # 5.4 10*3/uL (2.3-7.9); NEUT % 76.5 % (47.0-73.0); PLATELET COUNT AUTOMATED 151 10*3/uL (130-400); RED BLOOD COUNT 4.49 10*6/uL (4.50-5.90); RED CELL DISTRI WIDTH 12.6 % (0-14.5)
[2023-06-07 11:17] LABS: URINE CREATININE RANDOM 90.33 mg/dL
[2023-06-07 11:20] LABS: URINE CREATININE RANDOM 90.08 mg/dL
[2023-06-07 11:38] LABS: BILIRUBIN Negative (Negative); BLOOD Negative (Negative); CLARITY Clear (Clear); COLOR Yellow (Yellow); GLUCOSE 3+ (Negative); KETONE Negative (Negative); LEUKO ESTERASE Negative (Negative); NITRITE Negative (Negative); SPECIFIC GRAVITY >= 1.030 (1.001-1.030)
[2023-06-07 11:43] LABS: ALKALINE PHOSPHATASE 82 U/L (46-116); BUN 13 mg/dl (9-23); CHLORIDE 106 mmol/L (98-107); CHOLESTEROL 141 mg/dL (<200); LDL CHOLESTEROL 84 mg/dL (9-159); POTASSIUM 4.7 mmol/L (3.4-5.1); SGPT/ALT 11 U/L (5-49); TOTAL PROTEIN 7.1 gm/dL (6.0-8.0); TRIGLYCERIDES 68 mg/dl (<150)
[2023-06-07 11:44] LABS: BUN 14 mg/dl (9-23); CHLORIDE 105 mmol/L (98-107); POTASSIUM 4.8 mmol/L (3.4-5.1)
[2023-06-07 11:45] LABS: VITAMIN D, 25-HYDROXY 64.1 ng/mL (30-100)
[2023-06-07 12:09] LABS: BACTERIA 1+
== END | disposition home or self-care (01) ==
LOC: LAB 10:37
PROVIDERS: Nurse Practitioner Family; ATTEND Internal Medicine Nephrology
DX: E11.22 Type 2 diabetes mellitus with diabetic chronic kidney disease (principal); J44.1 Chronic obstructive pulmonary disease with (acute) exacerbation; I10 Essential (primary) hypertension; I48.0 Paroxysmal atrial fibrillation; Z72.0 Tobacco use; E55.9 Vitamin D deficiency, unspecified

== ENCOUNTER → 2023-08-03 | Outpatient (CLI) | payer OTHER | END | disposition home or self-care (01) | LOC: CT 00:24 | PROVIDERS: ATTEND Internal Medicine Critical Care Medicine | DX: J43.2 Centrilobular emphysema (principal); I25.10 Atherosclerotic heart disease of native coronary artery without angina pectoris; R91.8 Other nonspecific abnormal finding of lung field; D73.89 Other diseases of spleen; M84.48XD Pathological fracture, other site, subsequent encounter for fracture with routine healing; F17.210 Nicotine dependence, cigarettes, uncomplicated; R59.0 Localized enlarged lymph nodes; Z95.818 Presence of other cardiac implants and grafts ==

== ENCOUNTER → 2023-09-20 | Outpatient (CLI) | payer OTHER | END | disposition home or self-care (01) | LOC: LAB 13:03 | PROVIDERS: ATTEND Surgery | DX: R10.30 Lower abdominal pain, unspecified (principal) ==

== ENCOUNTER → 2023-09-21 | Outpatient (CLI) | payer OTHER ==
[~2023-09-21] MED LIST changes: +IOHEXOL 300 MG/ML 100 ML VIAL IV ONE
== END | disposition home or self-care (01) ==
LOC: CT 10:56
PROVIDERS: ATTEND Surgery
DX: K40.90 Unilateral inguinal hernia, without obstruction or gangrene, not specified as recurrent (principal); K76.0 Fatty (change of) liver, not elsewhere classified; I51.7 Cardiomegaly; I25.10 Atherosclerotic heart disease of native coronary artery without angina pectoris; K76.89 Other specified diseases of liver; D73.9 Disease of spleen, unspecified; I70.0 Atherosclerosis of aorta

== ENCOUNTER 2023-11-16 14:35 | Emergency (ER) | payer OTHER ==
[~2023-11-16] VITALS: Ht 187.9 cm; Wt 99.8 kg
[~2023-11-16 14:35] MED LIST changes: -IOHEXOL 300 MG/ML 100 ML VIAL IV ONE
[2023-11-16 16:14] LABS: BASO % 0.5 % (0.0-1.0); EOS # 0.1 10*3/uL (0.0-0.4); HEMATOCRIT 45.2 % (42.0-52.0); LYMPH # 0.9 10*3/uL (1.3-4.4); LYMPH % 14.8 % (27.0-41.0); MEAN CELL VOLUME 97.2 fl (80.0-94.0); MEAN CORPUSCULAR HGB 31.4 pg (27.0-31.0); MEAN CORPUSCULAR HGB CONC 32.3 g/dl (33.0-37.0); MEAN PLATELET VOLUME 10.2 fl (9.6-12.3); MONO # 0.5 10*3/uL (0.1-1.0); MONO % 8.1 % (3.0-9.0); NEUT # 4.4 10*3/uL (2.3-7.9); NEUT % 75.4 % (47.0-73.0); PLATELET COUNT AUTOMATED 151 10*3/uL (130-400); RED BLOOD COUNT 4.65 10*6/uL (4.50-5.90); RED CELL DISTRI WIDTH 12.7 % (0-14.5); WHITE BLOOD COUNT 5.8 10*3/uL (4.8-10.8)
[2023-11-16 16:28] LABS: ALKALINE PHOSPHATASE 104 U/L (46-116); BUN 10 mg/dl (9-23); CHLORIDE 104 mmol/L (98-107); POTASSIUM 3.5 mmol/L (3.4-5.1); TOTAL PROTEIN 6.9 gm/dL (6.0-8.0)
[2023-11-16 16:29] LABS: SGPT/ALT < 7 U/L (5-49)
[2023-11-16] MEDS ORDERED: Doxycycline Hyclate 100 MG CAP PO ONE (17:15)
[2023-11-16] MEDS ORDERED: predniSONE 20 MG TAB PO ONE (17:15)
[2023-11-16] MEDS ORDERED: Albuterol Sulf/Ipratropium 3 ML VIAL NEB ONE (17:15)
[2023-11-16] MEDS ORDERED: PREDNISONE50 MG PO (17:24)
[2023-11-16] MEDS ORDERED: VIBRAMYCIN100 MG PO (17:24)
== END 2023-11-16 17:36 | disposition home or self-care (01) ==
LOC: ED 14:35
PROVIDERS: Emergency Medicine
DX: J44.1 Chronic obstructive pulmonary disease with (acute) exacerbation (principal); I48.91 Unspecified atrial fibrillation; F41.9 Anxiety disorder, unspecified; I25.10 Atherosclerotic heart disease of native coronary artery without angina pectoris; E11.9 Type 2 diabetes mellitus without complications; E78.5 Hyperlipidemia, unspecified; K21.9 Gastro-esophageal reflux disease without esophagitis; I10 Essential (primary) hypertension; I25.2 Old myocardial infarction; F32.A Depression, unspecified; F17.200 Nicotine dependence, unspecified, uncomplicated; Z88.8 Allergy status to other drugs, medicaments and biological substances; Z88.6 Allergy status to analgesic agent; Z88.5 Allergy status to narcotic agent; Z79.899 Other long term (current) drug therapy; Z79.82 Long term (current) use of aspirin; Z98.890 Other specified postprocedural states; Z90.49 Acquired absence of other specified parts of digestive tract; Z95.5 Presence of coronary angioplasty implant and graft; Z99.81 Dependence on supplemental oxygen

== ENCOUNTER → 2024-01-23 | Outpatient (CLI) | payer OTHER ==
[~2024-01-23] MED LIST changes: +PREDNISONE50 MG PO
[2024-01-23 13:21] LABS: BASO # 0.1 10*3/uL (0.0-0.1); BASO % 0.9 % (0.0-1.0); EOS # 0.1 10*3/uL (0.0-0.4); EOS % 1.7 % (1.0-4.0); HEMATOCRIT 44.2 % (42.0-52.0); LYMPH # 1.1 10*3/uL (1.3-4.4); LYMPH % 18.2 % (27.0-41.0); MEAN CELL VOLUME 96.3 fl (80.0-94.0); MEAN CORPUSCULAR HGB 31.2 pg (27.0-31.0); MEAN CORPUSCULAR HGB CONC 32.4 g/dl (33.0-37.0); MEAN PLATELET VOLUME 10.1 fl (9.6-12.3); MONO # 0.4 10*3/uL (0.1-1.0); MONO % 6.5 % (3.0-9.0); NEUT # 4.2 10*3/uL (2.3-7.9); NEUT % 72.5 % (47.0-73.0); PLATELET COUNT AUTOMATED 135 10*3/uL (130-400); RED BLOOD COUNT 4.59 10*6/uL (4.50-5.90); RED CELL DISTRI WIDTH 12.6 % (0-14.5); WHITE BLOOD COUNT 5.8 10*3/uL (4.8-10.8)
[2024-01-23 13:32] LABS: URINE CREATININE RANDOM 105.97 mg/dL
[2024-01-23 13:43] LABS: ALKALINE PHOSPHATASE 91 U/L (46-116); BUN 11 mg/dl (9-23); CHLORIDE 109 mmol/L (98-107); CHOLESTEROL 144 mg/dL (<200); LDL CHOLESTEROL 81 mg/dL (9-159); POTASSIUM 3.8 mmol/L (3.4-5.1); SGPT/ALT 10 U/L (5-49); TOTAL PROTEIN 6.6 gm/dL (6.0-8.0); TRIGLYCERIDES 109 mg/dl (<150)
== END | disposition home or self-care (01) ==
LOC: LAB 12:54
PROVIDERS: ATTEND Nurse Practitioner Family
DX: I10 Essential (primary) hypertension (principal); J44.1 Chronic obstructive pulmonary disease with (acute) exacerbation; E11.22 Type 2 diabetes mellitus with diabetic chronic kidney disease

== ENCOUNTER → 2024-02-07 | Outpatient (CLI) | payer OTHER ==
[~2024-02-07] MED LIST changes: +IOHEXOL 300 MG/ML 100 ML VIAL IV ONE
== END | disposition home or self-care (01) ==
LOC: CT 08:51
PROVIDERS: ATTEND Internal Medicine Critical Care Medicine
DX: Z01.812 Encounter for preprocedural laboratory examination (principal); J43.2 Centrilobular emphysema; G47.33 Obstructive sleep apnea (adult) (pediatric); J96.11 Chronic respiratory failure with hypoxia; Z87.891 Personal history of nicotine dependence; Z99.81 Dependence on supplemental oxygen; Z68.32 Body mass index [BMI] 32.0-32.9, adult; R59.0 Localized enlarged lymph nodes; E11.9 Type 2 diabetes mellitus without complications; R91.8 Other nonspecific abnormal finding of lung field

== ENCOUNTER → 2024-05-09 | Outpatient (CLI) | payer OTHER ==
[~2024-05-09] MED LIST changes: -IOHEXOL 300 MG/ML 100 ML VIAL IV ONE
[2024-05-09 13:37] LABS: BASO % 0.6 % (0.0-1.0); EOS % 0.6 % (1.0-4.0); HEMATOCRIT 44.8 % (42.0-52.0); MEAN CELL VOLUME 98.5 fl (80.0-94.0); MEAN CORPUSCULAR HGB 31.4 pg (27.0-31.0); MEAN CORPUSCULAR HGB CONC 31.9 g/dl (33.0-37.0); MEAN PLATELET VOLUME 10.2 fl (9.6-12.3); MONO # 0.4 10*3/uL (0.1-1.0); MONO % 5.2 % (3.0-9.0); NEUT # 5.2 10*3/uL (2.3-7.9); NEUT % 77.1 % (47.0-73.0); PLATELET COUNT AUTOMATED 153 10*3/uL (130-400); RED BLOOD COUNT 4.55 10*6/uL (4.50-5.90); RED CELL DISTRI WIDTH 13.2 % (0-14.5); WHITE BLOOD COUNT 6.8 10*3/uL (4.8-10.8)
[2024-05-09 13:57] LABS: URINE CREATININE RANDOM 107.38 mg/dL
[2024-05-09 14:24] LABS: ALKALINE PHOSPHATASE 86 U/L (46-116); BUN 14 mg/dl (9-23); CHLORIDE 107 mmol/L (98-107); CHOLESTEROL 122 mg/dL (<200); LDL CHOLESTEROL 65 mg/dL (9-159); SGPT/ALT 12 U/L (5-49); TOTAL PROTEIN 6.7 gm/dL (6.0-8.0); TRIGLYCERIDES 87 mg/dl (<150)
== END | disposition home or self-care (01) ==
LOC: LAB 13:11
PROVIDERS: ATTEND Nurse Practitioner Family
DX: I12.9 Hypertensive chronic kidney disease with stage 1 through stage 4 chronic kidney disease, or unspecified chronic kidney disease (principal); E11.22 Type 2 diabetes mellitus with diabetic chronic kidney disease; N18.9 Chronic kidney disease, unspecified; I48.0 Paroxysmal atrial fibrillation; J44.1 Chronic obstructive pulmonary disease with (acute) exacerbation; Z72.0 Tobacco use

== ENCOUNTER → 2024-05-14 | Outpatient (CLI) | payer OTHER ==
[2024-05-14 10:33] LABS: BUN 14 mg/dl (9-23); CHLORIDE 108 mmol/L (98-107); POTASSIUM 4.1 mmol/L (3.4-5.1)
== END | disposition home or self-care (01) ==
LOC: LAB 09:37
PROVIDERS: ATTEND Internal Medicine Cardiovascular Disease
DX: I25.5 Ischemic cardiomyopathy (principal); R06.02 Shortness of breath; R05.9 Cough, unspecified; Z95.0 Presence of cardiac pacemaker

== ENCOUNTER 2024-06-20 18:02 | Emergency (ER) | payer OTHER ==
[~2024-06-20] VITALS: Ht 187.9 cm; Wt 117.9 kg
[2024-06-20 18:32] LABS: BASO % 0.6 % (0.0-1.0); EOS # 0.1 10*3/uL (0.0-0.4); EOS % 1.6 % (1.0-4.0); HEMATOCRIT 43.5 % (42.0-52.0); MEAN CELL VOLUME 98.4 fl (80.0-94.0); MEAN CORPUSCULAR HGB 31.4 pg (27.0-31.0); MEAN PLATELET VOLUME 10.3 fl (9.6-12.3); MONO # 0.4 10*3/uL (0.1-1.0); NEUT # 4.9 10*3/uL (2.3-7.9); NEUT % 76.3 % (47.0-73.0); PLATELET COUNT AUTOMATED 143 10*3/uL (130-400); RED BLOOD COUNT 4.42 10*6/uL (4.50-5.90); RED CELL DISTRI WIDTH 12.5 % (0-14.5); WHITE BLOOD COUNT 6.4 10*3/uL (4.8-10.8)
[2024-06-20 18:41] LABS: ACT PARTIAL THROMBO TIME 26.8 SECONDS (20.0-32.1)
[2024-06-20 18:47] LABS: ALKALINE PHOSPHATASE 94 U/L (46-116); BUN 14 mg/dl (9-23); CHLORIDE 109 mmol/L (98-107); POTASSIUM 4.4 mmol/L (3.4-5.1); TOTAL PROTEIN 6.4 gm/dL (6.0-8.0)
[2024-06-20 18:49] LABS: SGPT/ALT < 7 U/L (5-49)
[2024-06-20] MEDS ORDERED: AVPAK AZITHROM250 MG PO (23:15)
[2024-06-20] MEDS ORDERED: MEDROL DOSEPAK4 MG PO (23:15)
[2024-06-20] MEDS ORDERED: Dexamethasone Sodium Phospha 20 MG/5 ML VIAL IM ONE (23:15)
[2024-06-20] MEDS ORDERED: AZITHROMYCIN 250 MG TAB PO ONE (23:15)
== END 2024-06-20 23:50 | disposition home or self-care (01) ==
LOC: ED 18:02
PROVIDERS: Internal Medicine
DX: J44.9 Chronic obstructive pulmonary disease, unspecified (principal); Z20.822 Contact with and (suspected) exposure to COVID-19; Z53.29 Procedure and treatment not carried out because of patient's decision for other reasons; I11.0 Hypertensive heart disease with heart failure; I50.9 Heart failure, unspecified; I25.10 Atherosclerotic heart disease of native coronary artery without angina pectoris; E11.9 Type 2 diabetes mellitus without complications; E78.00 Pure hypercholesterolemia, unspecified; F17.200 Nicotine dependence, unspecified, uncomplicated; Z88.5 Allergy status to narcotic agent; Z88.8 Allergy status to other drugs, medicaments and biological substances; Z90.49 Acquired absence of other specified parts of digestive tract; Z98.890 Other specified postprocedural states; Z95.1 Presence of aortocoronary bypass graft

== ENCOUNTER → 2024-08-06 | Outpatient (CLI) | payer OTHER ==
[~2024-08-06] MED LIST changes: +DOXYCYCLINE HY100 M3 PO
[2024-08-06 13:24] LABS: BASO % 0.1 % (0.0-1.0); EOS % 0.2 % (1.0-4.0); HEMATOCRIT 45.5 % (42.0-52.0); MEAN CELL VOLUME 98.3 fl (80.0-94.0); MEAN CORPUSCULAR HGB 31.3 pg (27.0-31.0); MEAN CORPUSCULAR HGB CONC 31.9 g/dl (33.0-37.0); MEAN PLATELET VOLUME 9.9 fl (9.6-12.3); MONO # 0.6 10*3/uL (0.1-1.0); MONO % 4.9 % (3.0-9.0); NEUT # 9.8 10*3/uL (2.3-7.9); NEUT % 88.1 % (47.0-73.0); PLATELET COUNT AUTOMATED 167 10*3/uL (130-400); RED BLOOD COUNT 4.63 10*6/uL (4.50-5.90); RED CELL DISTRI WIDTH 12.9 % (0-14.5); WHITE BLOOD COUNT 11.2 10*3/uL (4.8-10.8)
[2024-08-06 13:48] LABS: ALKALINE PHOSPHATASE 75 U/L (46-116); BUN 18 mg/dl (9-23); CHLORIDE 106 mmol/L (98-107); CHOLESTEROL 127 mg/dL (<200); LDL CHOLESTEROL 61 mg/dL (9-159); POTASSIUM 4.2 mmol/L (3.4-5.1); SGPT/ALT 22 U/L (5-49); TOTAL PROTEIN 6.3 gm/dL (6.0-8.0); TRIGLYCERIDES 114 mg/dl (<150)
[2024-08-06 14:08] LABS: VITAMIN D, 25-HYDROXY 73.2 ng/mL (30-100)
== END | disposition home or self-care (01) ==
LOC: LAB 13:07
PROVIDERS: ATTEND Nurse Practitioner Family
DX: E11.22 Type 2 diabetes mellitus with diabetic chronic kidney disease (principal); J44.9 Chronic obstructive pulmonary disease, unspecified; E78.2 Mixed hyperlipidemia; I10 Essential (primary) hypertension; K21.9 Gastro-esophageal reflux disease without esophagitis; F32.9 Major depressive disorder, single episode, unspecified; I48.0 Paroxysmal atrial fibrillation; E55.9 Vitamin D deficiency, unspecified; E53.8 Deficiency of other specified B group vitamins